=== PATIENT | female | born 1940 | race American Indian/Alaskan Native ===

== ENCOUNTER 2017-10-16 17:18 | Inpatient (IN) | payer MEDICARE ==
[2017-10-16 17:22] VITALS: BMI 17.6
[2017-10-16 18:25] LABS: BASO # 0.01 K/mm3 (0.0-2.0); BASO % 0.1 % (0.0-3.0); EOS # 0.1 (0.0-0.7); EOS % 1.1 % (1.5-5.0); GRAN # 6.69 (1.4-6.5); GRAN % 68.7 % (50.0-68.0); HEMATOCRIT 41.4 % (36.0-48.0); LYMPH # 2.1 (1.2-3.4); LYMPH % 21.8 % (22.0-35.0); MEAN CELL VOLUME 90.6 fl (80.0-105.0); MEAN CORPUSCULAR HEMOGLOBIN 30.6 pg (25.0-35.0); MEAN CORPUSCULAR HGB CONC 33.8 g/dl (31.0-37.0); MEAN PLATELET VOLUME 10.1 fl (7.0-11.0); MONO # 0.8 (0.1-0.6); MONO % 8.3 % (1.0-6.0); RED CELL DISTRIBUTION WIDTH 12.8 % (11.5-14.5); WHITE BLOOD COUNT 9.8 10^3/ul (4.5-11.0)
[2017-10-16] MEDS ORDERED: Morphine 4 mg/ml ISec IVP STA ×2 (18:26→19:29)
[2017-10-16 18:29] LABS: ALB/GLOB RATIO 1.5 (1.1-1.8); BILIRUBIN,TOTAL 0.6 mg/dL (0.2-1.3); CALCIUM 10.1 mg/dL (8.4-10.5); INR 1.09 (0.93-1.08); PARTIAL THROMBOPLASTIN TIME 27.3 Seconds (25.1-36.5); POTASSIUM 3.2 mmol/L (3.6-5.0); TOTAL PROTEIN 7.8 g/dL (5.8-8.3)
[2017-10-16] MEDS ORDERED: Morphine 2 mg/ml ISec ONE (18:41)
[2017-10-16] MEDS ORDERED: Morphine 2 mg/ml ISec IVP STA ×2 (18:43→19:32)
[2017-10-16] MEDS ORDERED: Potassium Chloride 20 mEq/15 ml LIQ UD PO STA (18:43)
--- NOTE | 2017-10-16 19:50 | ED PDOC ---
Arrival/HPI - General Chief Complaint: Trauma Time Seen by Provider: 10/16/17 17:46 Historian: Patient - History of Present Illness Narrative History of Present Illness (Text): 10/16/17 19:40 A 77 year old female presents to the emergency department complaining of s/p fall injuries. Patient reports she was crossing the street and fell forward, hitting her face. Denies LOC, but experiences headache, nausea, and vomiting. Patient developed swelling to right-side forehead and left cheek, and notes pain to left hand and left hip. Otherwise, denies any neck pain, back pain, chest pain, any other extremity injuries, dizziness prior to fall, or any other complaints. Patient is known to have poor balance which causes her to fall often. Past Medical History - Provider Review Nursing Documentation Reviewed: Yes - Infectious Disease Hx of Infectious Diseases: None - Cardiac Hx Hypertension: Yes Other/Comment: Aneurysm -- s/o surgery 1 month ago - Musculoskeletal/Rheumatological Hx Herniated Disk: Yes Other/Comment: Scoliosis - Psychiatric Hx Substance Use: No - Surgical History Other/Comment: aneurysm - Anesthesia Hx Anesthesia: Yes Hx Anesthesia Reactions: No Hx Malignant Hyperthermia: No Family/Social History - Physician Review Nursing Documentation Reviewed: Yes Family/Social History: No Known Family HX Smoking Status: Unknown If Ever Smoked Hx Alcohol Use: No Hx Substance Use: No Allergies/Home Meds Allergies/Adverse Reactions: Allergies erythromycin base Allergy (Verified 10/16/17 17:25) SWELLING iodine Allergy (Verified 10/16/17 17:25) SWELLING latex Allergy (Verified 10/16/17 17:25) RASH Home Medications: Home Meds Medication Instructions Recorded Confirmed Aspirin [Aspirin Chewable] 1 tab PO DAILY 10/16/17 10/16/17 Bimatoprost [Lumigan] 1 drop BOTHEYES HS 10/16/17 10/16/17 Chlorthalidone [Hygroton] 12.5 mg PO QOTHERDAY 10/16/17 10/16/17 Clopidogrel [Plavix] 1 tab PO DAILY 10/16/17 10/16/17 DULoxetine [Cymbalta] 1 cap PO HS 10/16/17 10/16/17 Nebivolol [Bystolic] 10 mg PO DAILY 10/16/17 10/16/17 Rivastigmine 4.6 mg/24 hr [Exelon 1 patch TD DAILY 10/16/17 10/16/17 4.6 mg/24 hr Patch] amLODIPine [Norvasc] 1 tab PO DAILY 10/16/17 10/16/17 cloNIDine [Catapres] 1 tab PO DAILY PRN 10/16/17 10/16/17 traMADol [Ultram] 100 mg PO TID 10/16/17 10/16/17 Review of Systems - Physician Review All systems were reviewed & negative as marked: Yes - Review of Systems Cardiovascular: absent: Chest Pain Gastrointestinal: Nausea, Vomiting Musculoskeletal: Other (left hip pain, left hand pain, right-side forehead swelling, left cheek swelling). absent: Back Pain, Neck Pain Neurological: Headache. absent: Other (no loc) Physical Exam Vital Signs Reviewed: Yes Vital Signs Temp Pulse Resp BP Pulse Ox 10/16/17 23:14 19 99 10/16/17 21:46 97.9 F 62 18 151/84 H 100 10/16/17 19:22 75 20 162/85 H 100 10/16/17 17:38 98.2 F 72 18 159/119 H 98 Temperature: Afebrile Blood Pressure: Hypertensive Pulse: Regular Respiratory Rate: Normal Appearance: Positive for: Well-Appearing Pain Distress: Moderate Mental Status: Positive for: Alert and Oriented X 3 - Systems Exam Head: Present: Swelling (right side forehead hematoma; left cheek hematoma) Pupils: Present: PERRL Extroacular Muscles: Present: EOMI Conjunctiva: Present: Normal Mouth: Present: Moist Mucous Membranes Neck: Present: Normal Range of Motion Respiratory/Chest: Present: Clear to Auscultation, Good Air Exchange. No: Respiratory Distress, Accessory Muscle Use Cardiovascular: Present: Regular Rate and Rhythm, Normal S1, S2. No: Murmurs Abdomen: Present: Normal Bowel Sounds. No: Tenderness, Distention, Peritoneal Signs Back: Present: Normal Inspection Upper Extremity: Present: NORMAL PULSES, Swelling (left hand dorsal area swelling). No: Normal ROM (limited ROM) Lower Extremity: No: Tenderness (no tenderness to left hip), Other (not shortened or externally rotated) Neurological: Present: GCS=15, CN II-XII Intact, Speech Normal Skin: Present: Warm, Dry, Normal Color. No: Rashes Psychiatric: Present: Alert, Oriented x 3, Normal Insight, Normal Concentration Medical Decision Making ED Course and Treatment: 10/17/17 01:14 Plan: -- Labs -- IV -- Urinalysis -- EKG -- CXR -- XR L hand / L hip -- Morphine / Zofran -- Reassess and disposition -- CT head / maxillofacial / C spine On evaluation, the patient continues to complain of nausea, is actively vomiting and still complains of pain. Patient medicated with morphine 4 mg and Zofran 4 mg IV. XR L hip : ? fracture of the ASIS, no fracture of the hip, no dislocation, as read by PA. XR L hand : no fracture, no dislocation, as read by PA CXR : NAD, as read by PA EKG: SB at 56 bpm, (+) LAD, (-) acute ST changes, as read by PA. CT L hip ordered. On second reevaluation, just laying in bed comfortably, patient remains awake, alert, oriented 3. Patient still feels nauseous at this time, given reglan 10 mg IV. Patient seen and evaluated by ER MD, agrees with current plan of care. Lab results reviewed : (+) mild UTI. Patient medicated with bactrim DS PO. Urine cx sent. CT head and maxillofacial shows no acute fracture or bleed. On re-evaluation, patient continues to c/o pain in the L hip with difficulty ambulating. Considering that the patient has intractible vomiting with difficulty ambulating decision was made to keep the patient for inpt obs. Case d /w Dr. Law, agrees with plan for inpt obs. Further plan of care d/w the patient and with family, who both agree with plan. As per patient's nephew, the patient has a h/o opiate abuse, specifically oxycontin and was recently in rehab in May of this year, she is currently on tramadol and lidocaine patches at home for pain. - Lab Interpretations Lab Results: 10/16/17 18:00 10/16/17 18:00 Lab Results 10/16/17 20:50: Urine Color Yellow, Urine Appearance Clear, Urine pH 8.0, Ur Specific [place] 1.010, Urine Protein Negative, Urine Glucose (UA) Negative, Urine Ketones Trace H, Urine Blood Trace-intact H, Urine Nitrate Negative, Urine Bilirubin Negative, Urine Urobilinogen 0.2, Ur Leukocyte Esterase Small H , Urine RBC 1 - 3, Urine WBC 2 - 5, Ur Epithelial Cells 1 - 3, Urine Bacteria Few 10/16/17 18:59: Blood Type Confirm O POSITIVE 10/16/17 18:00: Magnesium 2.1, Total Creatine Kinase 80 10/16/17 18:00: Troponin I < 0.01 10/16/17 18:00: Blood Type O POSITIVE, Antibody Screen Negative, BBK History Checked No verified bt 10/16/17 18:00: Sodium 134, Potassium 3.2 L, Chloride 91 L, Carbon Dioxide 35 H , Anion Gap 12, BUN 17, Creatinine 1.2, Est GFR ( Amer) 53, Est GFR (Non- Af Amer) 44, Random Glucose 118 H, Calcium 10.1, Total Bilirubin 0.6, AST 40 H, ALT 49, Alkaline Phosphatase 78, Total Protein 7.8, Albumin 4.7, Globulin 3.1, Albumin/Globulin Ratio 1.5 10/16/17 18:00: PT 11.9, INR 1.09 H, APTT 27.3 10/16/17 18:00: WBC 9.8, RBC 4.57, Hgb 14.0, Hct 41.4, MCV 90.6, MCH 30.6, MCHC 33.8, RDW 12.8, Plt Count 227, MPV 10.1, Gran % 68.7 H, Lymph % (Auto) 21.8 L, [place] % (Auto) 8.3 H, Eos % (Auto) 1.1 L, Baso % (Auto) 0.1, Gran # 6.69 H, Lymph # 2.1, [place] # 0.8 H, Eos # 0.1, Baso # 0.01 - RAD Interpretation Narrative RAD Interpretations (Text): 10/17/17 01:33 CT C spine : FINDINGS: Vertebrae: No acute fracture. Alignment: Preservation of the curvature of the cervical spine. Discs/spinal canal/neural foramina: No acute findings. Degenerative disease is identified with osteophyte formation, disc space narrowing, endplate changes and significant facet arthropathy. Thickening of the transverse ligament is suspected with accompanying synovial hypertrophy. Soft tissues: Symmetric Lung apices: The visualized lung apices are clear. IMPRESSION: Degenerative disease, without acute fracture. Dictated and Authenticated by: Sandee Morocho MD 10/16/2017 10:02 PM Eastern Time ([place] & [place]) CT head : FINDINGS: Brain: Moderate cerebral volume loss and accompanying decrease in attenuation of the periventricular white matter secondary to chronic microangiopathic change. The brain otherwise with normal yeung-white matter differentiation, without acute intracranial hemorrhage , edema or mass effect. Midline shift: No midline shift is present. Ventricles: Unremarkable. No ventriculomegaly. Bones/joints: No calvarial fractures are visualized. Soft tissues: There is severe soft tissue edema consistent with posttraumatic contusion and hematoma associated with the right frontal scalp. Vasculature: A small aneurysm with partial calcification of the base of the left MCA, 7 mm image 31 series #2. Stent appears in place in the left cavernous ICA. Sinuses: Unremarkable as visualized. No acute sinusitis. Mastoid air cells: Unremarkable as visualized. No mastoid effusion. Orbits: The orbits are normal. There is no evidence of retrobulbar hemorrhage. IMPRESSION: There is significant soft tissue injury noted to the patient's head. No acute intracranial findings are seen. 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 Incidentally noted is likely stent in the left ICA cavernous region, please correlate clinically. Dictated and Authenticated by: Aubrey St MD 10/16/2017 8:12 PM Eastern Time ([place] & [place]) CT Maxillofacial : FINDINGS: Bones/joints: No zygomatic fractures. No additional facial bone fractures. Soft tissues: There is severe soft tissue edema consistent with posttraumatic contusion and hematoma associated with the right frontal scalp. Moderate soft tissue swelling and contusion of the left periorbital region with a prominent hematoma the left zygoma 2.1 cm. Extensive soft tissue contusion of the left face adjacent to left maxillary region and left mandibular area. Orbits: The orbits are normal. There is no evidence of retrobulbar hemorrhage. Sinuses: Unremarkable. No air-fluid levels IMPRESSION: Extensive multifocal soft tissue injury to the face. No definite facial bone fractures. Dictated and Authenticated by: Aubrey St MD 10/16/2017 8:03 PM Eastern Time ([place] & [place]) Radiology Orders: 10/16/17 17:47 HEAD W/O CONTRAST [CT] Stat 10/16/17 17:55 MAXILLOFACIAL W/O CONTRAST [CT] Stat HAND LEFT 3 VIEWS ROUTINE [RAD] Stat HIP MIN 2V W/ PELVIS LT [RAD] Stat 10/16/17 20:16 CERVICAL SPINE W/O CONTRAST [CT] Stat 10/16/17 20:21 CHEST ONE VIEW [RAD] Stat - Medication Orders Current Medication Orders: Amlodipine Besylate (Norvasc) 5 mg PO DAILY [facility] Aspirin (Aspirin Chewable) 81 mg PO DAILY [facility] Clonidine HCl (Catapres) 0.1 mg PO BID ERNIE Clopidogrel Bisulfate (Plavix) 75 mg PO DAILY ERNIE Duloxetine HCl (Cymbalta) 30 mg PO HS [facility] Heparin Sodium (Porcine) (Heparin) 5,000 units SC Q12 ERNIE PRN Reason: Protocol Sodium Chloride (Sodium Chloride 0.9%) 1,000 mls @ 100 mls/hr IV .Q10H [facility] Ceftriaxone Sodium (Rocephin 2 Gm Ivpb) 2 gm in 100 mls @ 100 mls/hr IVPB DAILY ERNIE PRN Reason: Protocol Ketorolac Tromethamine (Toradol) 15 mg IVP Q6H PRN PRN Reason: Pain, moderate (4-7) Metoclopramide HCl (Reglan) 5 mg IVP ACHS [facility] Non-Formulary Medication (Bimatoprost [Lumigan]) 1 drop BOTHEYES HS [facility] Ondansetron HCl (Zofran Inj) 4 mg IVP Q4H PRN PRN Reason: Nausea/Vomiting Pantoprazole Sodium (Protonix Ec Tab) 40 mg PO 0600 [facility] Rivastigmine (Exelon 4.6 Mg/24 Hr Patch) 1 patch TD DAILY [facility] Discontinued Medications Acetaminophen (Tylenol 325mg Tab) 650 mg PO STAT STA Stop: 10/16/17 17:56 Last Admin: 10/16/17 19:09 Dose: Not Given Non-Admin Reason: Patient Refused Metoclopramide HCl (Reglan) 10 mg IVP STAT STA Stop: 10/16/17 19:30 Last Admin: 10/16/17 19:57 Dose: 10 mg IVP Administration Document 10/16/17 19:57 CAST (Rec: 10/16/17 19:[email or web address] Charges for Administration # of IVP Administrations 1 Morphine Sulfate (Morphine) 2 mg IVP STAT STA Stop: 10/16/17 18:44 Last Admin: 10/16/17 19:10 Dose: 2 mg MAR Pain Assessment Document 10/16/17 19:10 [email or web address] (Rec: 10/16/17 19:[address] Pain Reassessment Is this a pain reassessment? No Sleep Is patient sleeping during reassessment? No Presence of Pain Presence of Pain Yes Pain Scale Used Pain Scale Used Numeric Location Pain Location Body [employer] Description Description Constant Intensity of Pain at present 8 Pain Behavior Facial Grimacing Aggravating Factors Changing Position Alleviating Factors/Management Medication Techniques Alleviating Factors Medication IVP Administration Document 10/16/17 19:10 [email or web address] (Rec: 10/16/17 19:[address] Charges for Administration # of IVP Administrations 1 Morphine Sulfate (Morphine) 4 mg IVP STAT STA Stop: 10/16/17 19:33 Last Admin: 10/16/17 19:58 Dose: 4 mg MAR Pain Assessment Document 10/16/17 19:58 CAST (Rec: 10/16/17 19:[address] Pain Reassessment Is this a pain reassessment? No Sleep Is patient sleeping during reassessment? No Presence of Pain Presence of Pain Yes Pain Scale Used Pain Scale Used Numeric Location Pain Location Body Site Face Description Description Constant Intensity of Pain at present 8 Pain Behavior Facial Grimacing Aggravating Factors Changing Position Alleviating Factors/Management Medication Techniques Alleviating Factors Medication IVP Administration Document 10/16/17 19:58 [email or web address] (Rec: 10/16/17 19:[address] Charges for Administration # of IVP Administrations 1 Ondansetron HCl (Zofran Inj) 4 mg IVP STAT STA Stop: 10/16/17 17:47 Last Admin: 10/16/17 18:00 Dose: 4 mg IVP Administration Document 10/16/17 18:00 CONY (Rec: 10/16/17 18:05 CONY [id number]) Charges for Administration # of IVP Administrations 1 Ondansetron HCl (Zofran Inj) 4 mg IVP STAT STA Stop: 10/16/17 18:27 Last Admin: 10/16/17 19:10 Dose: 4 mg IVP Administration Document 10/16/17 19:10 [email or web address] (Rec: 10/16/17 19:[address] Charges for Administration # of IVP Administrations 1 Potassium Chloride (Potassium Chloride Oral Soln) 40 meq PO STAT STA Stop: 10/16/17 18:44 Last Admin: 10/16/17 21:54 Dose: 40 meq Tramadol HCl (Ultram) 50 mg PO STAT STA Stop: 10/16/17 21:26 Last Admin: 10/16/17 21:54 Dose: 50 mg MAR Pain Assessment Document 10/16/17 21:54 [email or web address] (Rec: 10/16/17 21:54 [email or web address] [id number]) Pain Reassessment Is this a pain reassessment? No Sleep Is patient sleeping during reassessment? 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 - Scribe Statement The provider has reviewed the documentation as recorded by the Zhanna Wright Provider Scribe Attestation: All medical record entries made by the Zhanna were at my direction and personally dictated by me. I have reviewed the chart and agree that the record accurately reflects my personal performance of the history, physical exam, medical decision making, and the department course for this patient. I have also personally directed, reviewed, and agree with the discharge instructions and disposition. Disposition/Present on Arrival - Present on Arrival Any Indicators Present on Arrival: No History of DVT/PE: No History of Uncontrolled Diabetes: No Urinary Catheter: No History of Decub. Ulcer: No History Surgical Site Infection Following: None - Disposition Have Diagnosis and Disposition been Completed?: Yes Diagnosis: Intractable vomiting, Left hip pain, Fall, UTI (urinary tract infection) Disposition: HOSPITALIZED Disposition Time: 22:08 Patient Plan: Observation Patient Problems: Current Active Problems Problem Status Onset Fall Acute Intractable vomiting Acute Left hip pain Acute UTI (urinary tract infection) Acute Condition: STABLE
[2017-10-16 21:00] LABS: URINE APPEARANCE CLEAR (CLEAR); URINE BILIRUBIN NEGATIVE (NEGATIVE); URINE BLOOD TRACE-INTACT (NEGATIVE); URINE COLOR YELLOW (YELLOW); URINE GLUCOSE (UA) NEGATIVE (NEGATIVE); URINE KETONE TRACE mg/dL (NEGATIVE); URINE LEUKOCYTE ESTERASE SMALL Leu/uL (NEGATIVE); URINE PROTEIN NEGATIVE mg/dL (<30 mg/dL); URINE UROBILINOGEN 0.2 E.U./dL (<1 E.U./dL)
[2017-10-16 21:04] LABS: URINE BACTERIA FEW (NEG)
[2017-10-16] MEDS ORDERED: Tmp-Smz 800 mg-160 mg DS Tab PO STA (21:41)
--- NOTE | 2017-10-16 22:03 | CT ---
EXAM: CT Cervical Spine Without Intravenous Contrast CLINICAL HISTORY: 77 years old, female; Injury or trauma; Fall; Initial encounter; Abrasion TECHNIQUE: Axial computed tomography images of the cervical spine without intravenous contrast. All CT scans at this facility use one or more dose reduction techniques, viz.: automated exposure control; ma/kV adjustment per patient size (including targeted exams where dose is matched to indication; i.e. head); or iterative reconstruction technique. Coronal and sagittal reformatted images were created and reviewed. COMPARISON: No relevant prior studies available. FINDINGS: Vertebrae: No acute fracture. Alignment: Preservation of the curvature of the cervical spine. Discs/spinal canal/neural foramina: No acute findings. Degenerative disease is identified with osteophyte formation, disc space narrowing, endplate changes and significant facet arthropathy. Thickening of the transverse ligament is suspected with accompanying synovial hypertrophy. Soft tissues: Symmetric Lung apices: The visualized lung apices are clear. IMPRESSION: Degenerative disease, without acute fracture.
[2017-10-16 23:20] LABS: MAGNESIUM 2.1 mg/dL (1.7-2.2)
--- NOTE | 2017-10-16 23:58 | CP.PCM.HP ---
History of Present Illness - History of Present Illness History of Present Illness: 77 y/o F with PMH of HTN, b/l cataracts, CVA s/p Left ICA stent presents for mechanical fall. Pt states she has very poor depth perception due to her cataracts. As she was getting out of her car, she tripped on the sidewalk and fell straight onto her face. Pt was immediately brought to the hospital. Pt denies any LOC or dizziness. Pt also denies any tongue biting or loss of bowel/ bladder function. Pt states she is unable to open her right eye due to the swelling. She does note generalized body pain, as she fell on her face, wrist, and knees b/l. Since fall, patient has developed nausea and vomiting. This has not happened to patient in the past. Denies CP, SOB, diarrhea, constipation, syncope, fever, chills, numbness, tingling. PMH: HTN, b/l cataracts, CVA s/p Left ICA stent Surgical Hx: Left ICA stent Social hx: Denies alcohol, tobacco, or illicit drug use Medications: As per MAR Allergies: Erythromycin, Iodine, Latex Present on Admission - Present on Admission Any Indicators Present on Admission: No Review of Systems - Review of Systems Review of Systems: As per HPI, otherwise negative. Past Patient History - Infectious Disease Hx of Infectious Diseases: None - Past Social History Smoking Status: Unknown If Ever Smoked - CARDIAC Hx Hypertension: Yes Other/Comment: Aneurysm -- s/o surgery 1 month ago - MUSCULOSKELETAL/RHEUMATOLOGICAL Hx Herniated Disk: Yes Other/Comment: Scoliosis - PSYCHIATRIC Hx Substance Use: No - SURGICAL HISTORY Other/Comment: aneurysm - ANESTHESIA Hx Anesthesia: Yes Hx Anesthesia Reactions: No Hx Malignant Hyperthermia: No Meds Allergies/Adverse Reactions: Allergies Allergy/AdvReac Type Severity Reaction Status Date / Time erythromycin base Allergy SWELLING Verified 10/16/17 17:25 iodine Allergy SWELLING Verified 10/16/17 17:25 latex Allergy RASH Verified 10/16/17 17:25 Physical Exam - Constitutional Appears: Non-toxic, No Acute Distress - Head Exam Head Exam: NORMOCEPHALIC Additional comments: Large hematoma above right eye. Hematoma noted along left lateral portion of face. Bruising diffusely. - Eye Exam Eye Exam: EOMI (Left intact, right unable to be assessed. ) - ENT Exam ENT Exam: Mucous Membranes Moist - Neck Exam Neck exam: Positive for: Normal Inspection. Negative for: Tenderness - Respiratory Exam Respiratory Exam: Clear to Auscultation Bilateral, NORMAL BREATHING PATTERN. absent: Rales, Rhonchi, Wheezes - Cardiovascular Exam Cardiovascular Exam: RRR, +S1, +S2 - GI/Abdominal Exam GI & Abdominal Exam: Normal Bowel Sounds, Soft. absent: Tenderness - Extremities Exam Extremities exam: Negative for: calf tenderness, pedal edema Additional comments: Abrasions along knees b/l. No hip bruising noted. - Neurological Exam Neurological exam: Alert, CN II-XII Intact, Oriented x3 Additional comments: No focal neurological deficits - Psychiatric Exam Psychiatric exam: Normal Affect, Normal Mood - Skin Skin Exam: Intact, Normal Color, Warm Results - Vital Signs Recent Vital Signs: Last Vital Signs Temp 97.9 F 10/16/17 21:46 Pulse 62 10/16/17 21:46 Resp 19 10/16/17 23:14 BP 151/84 H 10/16/17 21:46 Pulse Ox 99 10/16/17 23:14 - Labs Result Diagrams: 10/16/17 18:00 10/16/17 18:00 Labs: Laboratory Results - last 24 hr 10/16/17 10/16/17 10/16/17 18:00 18:00 18:00 WBC 9.8 RBC 4.57 Hgb 14.0 Hct 41.4 MCV 90.6 MCH 30.6 MCHC 33.8 RDW 12.8 Plt Count 227 MPV 10.1 Gran % 68.7 H Lymph % (Auto) 21.8 L [place] % (Auto) 8.3 H Eos % (Auto) 1.1 L Baso % (Auto) 0.1 Gran # 6.69 H Lymph # 2.1 [place] # 0.8 H Eos # 0.1 Baso # 0.01 PT 11.9 INR 1.09 H APTT 27.3 Sodium 134 Potassium 3.2 L Chloride 91 L Carbon Dioxide 35 H Anion Gap 12 BUN 17 Creatinine 1.2 Est GFR ( Amer) 53 Est GFR (Non-Af Amer) 44 Random Glucose 118 H Calcium 10.1 Magnesium Total Bilirubin 0.6 AST 40 H ALT 49 Alkaline Phosphatase 78 Total Creatine Kinase Troponin I Total Protein 7.8 Albumin 4.7 Globulin 3.1 Albumin/Globulin Ratio 1.5 Urine Color Urine Appearance Urine pH Ur Specific [place] Urine Protein Urine Glucose (UA) Urine Ketones Urine Blood Urine Nitrate Urine Bilirubin Urine Urobilinogen Ur Leukocyte Esterase Urine RBC Urine WBC Ur Epithelial Cells Urine Bacteria Blood Type Blood Type Confirm Antibody Screen BBK History Checked 10/16/17 10/16/17 10/16/17 18:00 18:00 18:00 WBC RBC Hgb Hct MCV MCH MCHC RDW Plt Count MPV Gran % Lymph % (Auto) [place] % (Auto) Eos % (Auto) Baso % (Auto) Gran # Lymph # [place] # Eos # Baso # PT INR APTT Sodium Potassium Chloride Carbon Dioxide Anion Gap BUN Creatinine Est GFR ( Amer) Est GFR (Non-Af Amer) Random Glucose Calcium Magnesium 2.1 Total Bilirubin AST ALT Alkaline Phosphatase Total Creatine Kinase 80 Troponin I < 0.01 Total Protein Albumin Globulin Albumin/Globulin Ratio Urine Color Urine Appearance Urine pH Ur Specific [place] Urine Protein Urine Glucose (UA) Urine Ketones Urine Blood Urine Nitrate Urine Bilirubin Urine Urobilinogen Ur Leukocyte Esterase Urine RBC Urine WBC Ur Epithelial Cells Urine Bacteria Blood Type O POSITIVE Blood Type Confirm Antibody Screen Negative BBK History Checked No verified bt 10/16/17 10/16/17 18:59 20:50 WBC RBC Hgb Hct MCV MCH MCHC RDW Plt Count MPV Gran % Lymph % (Auto) [place] % (Auto) Eos % (Auto) Baso % (Auto) Gran # Lymph # [place] # Eos # Baso # PT INR APTT Sodium Potassium Chloride Carbon Dioxide Anion Gap BUN Creatinine Est GFR ( Amer) Est GFR (Non-Af Amer) Random Glucose Calcium Magnesium Total Bilirubin AST ALT Alkaline Phosphatase Total Creatine Kinase Troponin I Total Protein Albumin Globulin Albumin/Globulin Ratio Urine Color Yellow Urine Appearance Clear Urine pH 8.0 Ur Specific [place] 1.010 Urine Protein Negative Urine Glucose (UA) Negative Urine Ketones Trace H Urine Blood Trace-intact H Urine Nitrate Negative Urine Bilirubin Negative Urine Urobilinogen 0.2 Ur Leukocyte Esterase Small H Urine RBC 1 - 3 Urine WBC 2 - 5 Ur Epithelial Cells 1 - 3 Urine Bacteria Few Blood Type Blood Type Confirm O POSITIVE Antibody Screen BBK History Checked Assessment & Plan - Assessment and Plan (Free Text) Plan: 77 y/o F with PMH of HTN, b/l cataracts, CVA s/p Left ICA stent presents for mechanical fall. Pt underwent Head, Maxillofacial, and Cervical CT scans which were all negative for acute fracture. Wrist and hip x-ray official reads pending at this time. Pt with extensive soft tissue swelling along right and left eye. Pt will be admitted for observation. 1. Mechanical fall, facial trauma CT scans negative for acute fracture Tordol for pain NS @ 100 Cold compresses prn CPK ordered Brain MRA/MRI ordered 2. UTI ROcephin started Culture pending 3. Intractable nausea and vomiting Zofran Reglan NS @ 100 4. HTN Hold thiazide, Bystolic Continue amlodipine and clonidine 5. Hx of left ICA stent Continue ASA and plavix 6. B/l cataracts Continue home drops 7. PPX Protonix Heparin Husam, PGY-2
[2017-10-17] MEDS ORDERED: Potassium Chloride 20 mEq ER Tab PO STA (04:43)
[2017-10-17] MEDS: Pantoprazole 40 mg EC Tab PO SCH (05:45)
[2017-10-17 07:02] LABS: GRAN # 9.36 (1.4-6.5); GRAN % 82.7 % (50.0-68.0); HEMATOCRIT 40.1 % (36.0-48.0); LYMPH # 0.9 (1.2-3.4); MEAN CELL VOLUME 90.1 fl (80.0-105.0); MEAN CORPUSCULAR HEMOGLOBIN 29.9 pg (25.0-35.0); MEAN CORPUSCULAR HGB CONC 33.2 g/dl (31.0-37.0); MEAN PLATELET VOLUME 10.2 fl (7.0-11.0); MONO # 1.1 (0.1-0.6); MONO % 9.3 % (1.0-6.0); RED CELL DISTRIBUTION WIDTH 12.6 % (11.5-14.5); WHITE BLOOD COUNT 11.3 10^3/ul (4.5-11.0)
[2017-10-17 08:02] LABS: ALB/GLOB RATIO 1.5 (1.1-1.8); ALKALINE PHOSPHATASE 69 U/L (38-126); ALT/SGPT 43 U/L (7-56); AST/SGOT 35 U/L (14-36); BILIRUBIN,TOTAL 0.9 mg/dL (0.2-1.3); BLOOD UREA NITROGEN 15 mg/dL (7-21); CARBON DIOXIDE 36 mmol/L (21-33); CHLORIDE 92 mmol/L (98-107); GFR AFRICAN-AMERICAN > 60; GLUCOSE,RANDOM 137 mg/dL (70-110); POTASSIUM 4.6 mmol/L (3.6-5.0); SODIUM 135 mmol/L (132-148); TOTAL PROTEIN 7.4 g/dL (5.8-8.3)
--- NOTE | 2017-10-17 09:38 | RAD ---
Indication: Trauma Left hip with pelvis radiographs Comparison: None available Findings: Osseous demineralization limits evaluation for acute fracture lines. No acute displaced fracture or dislocation identified. Sacroiliac joints appear intact. Mild constipation. Soft tissues appear unremarkable. No evidence of radiopaque foreign body. Impression: Osseous demineralization. No acute displaced fracture or dislocation evident. If high clinical index of suspicion, suggest cross-sectional imaging for further evaluation. Otherwise, if symptoms persist or if there is continued clinical concern, x-ray follow-up in 7-10 days should be considered.
--- NOTE | 2017-10-17 09:41 | RAD ---
PROCEDURE: Left Hand Radiographs. HISTORY: trauma COMPARISON: None available. FINDINGS: BONES: Osseous demineralization limits evaluation for acute fracture lines. No acute displaced fracture. JOINTS: No dislocation. Extensive degenerative changes including joint space narrowing most prominent at the carpal metacarpal joint spaces. SOFT TISSUES: Soft tissue swelling. No evidence of radiopaque foreign body. OTHER FINDINGS: None. IMPRESSION: Osseous demineralization. Degenerative changes. Soft tissue swelling. No acute displaced fracture or dislocation identified. If high clinical index of suspicion for occult fracture persists suggest further evaluation with cross-sectional imaging. Otherwise, if symptoms persist, or if there is continued clinical concern, x-ray follow-up in 7-10 days should be considered.
--- NOTE | 2017-10-17 09:58 | RAD ---
HISTORY: fall COMPARISON: Chest x-ray performed 10/16/17 TECHNIQUE: Chest, one view. FINDINGS: LUNGS: Right upper lobe pleural thickening. Suspect left-sided pleural calcification, Numerous calcified pleural plaques are present bilaterally suggesting asbestos related pleural disease. Please note that chest x-ray has limited sensitivity for the detection of pulmonary masses. PLEURA: No significant pleural effusion identified. No definite pneumothorax . CARDIOVASCULAR: Heart size appears within normal limits. Ectatic aorta. OSSEOUS STRUCTURES: Osseous demineralization. No acute osseous abnormality detected. VISUALIZED UPPER ABDOMEN: Unremarkable. OTHER FINDINGS: None. IMPRESSION: Right upper lobe pleural thickening. Suspect left-sided pleural calcification, Numerous calcified pleural plaques are present bilaterally suggesting asbestos related pleural disease.
[2017-10-17] MEDS: cefTRIAXone 2 GM IN NS 2 GM/100 ML BAG IVPB SCH (11:12)
[2017-10-17] MEDS: Sodium Chloride 0.9% 1,000 ML IV SCH ×2 (11:13→17:55)
--- NOTE | 2017-10-17 12:46 | CON ---
DATE: 10/17/2017 CHIEF COMPLAINT: Status post fall. HISTORY OF PRESENT ILLNESS: This is a 77-year-old woman with past medical history of hypertension, bilateral cataracts, CVA, status post left ICA stent presented with mechanical fall. She states she has very poor depth perception due to bilateral cataracts. She tripped on the sidewalk and fell on her face where she developed facial contusions but no loss of consciousness or dizziness. No history of seizures. No history of tongue bite or loss of bowel or bladder function. Her right eye is swollen. CTA has showed no intracranial abnormalities. Her MRI of the brain is currently pending for any delayed events. She is moving all extremities and following simple commands. She denies any prior syncopal episodes or any diaphoresis or palpitations prior to the event. PAST MEDICAL HISTORY: History of hypertension, bilateral cataracts, CVA, status post left ICA stent. SURGICAL HISTORY: Left ICA stent. SOCIAL HISTORY: No illicit drug use, smoking, or EtOH abuse. ALLERGIES: ALLERGIC TO ERYTHROMYCIN, IODINE, AND LATEX. MEDICATIONS: Reviewed via nurse's reconciliation sheet. LABORATORY DATA: Sodium 135, potassium 4.6, chloride 92, carbon dioxide 36, BUN 15, creatinine 1, random glucose 137. PHYSICAL EXAMINATION VITAL SIGNS: Temperature 98.3, pulse rate 74, blood pressure 137/81, respirations 20, oxygen saturation 98% via room air. GENERAL: The patient is sitting up in bed, in no acute distress. HEENT: Head is atraumatic and normocephalic. PERRLA. Extraocular muscles intact. NECK: Supple. No JVD. No adenopathy noted. Has multiple contusions and abrasions on her face. Hematoma along the left lateral portion of her face and bruising diffusely and a large hematoma above her right eye. Neck is supple. No JVD. No adenopathy noted. LUNGS: Clear to auscultation. No adventitious sounds. HEART: S1 and S2, normal rate and rhythm. No murmurs, rubs, or gallops. ABDOMEN: Soft, nontender, nondistended. Bowel sounds are present. EXTREMITIES: No clubbing, no cyanosis. Peripheral pulses 2+ bilaterally. NEUROLOGIC: The patient is alert, oriented to person, place, month, and year. Speech is fluent without any errors. Cranial nerves II through XII intact. Motor exam: Slight increased tone throughout. Has spastic mild right sided weakness from prior CVA. Sensory exam: Light touch, pinprick, proprioception, vibration intact. DTRs are 1+ throughout. Coordination: [id number] intact. Gait is deferred for now. ASSESSMENT AND PLAN: This is a 77-year-old woman with a past medical history of hypertension, bilateral cataracts, cerebrovascular accident, status post left ICA stent with spastic mild right-sided weakness associated with right upper extremity presented with mechanical fall after tripping on the sidewalk. CT of head and cervical spine scans were all negative for any acute fractures or any acute bleeding in the brain. She has excessive soft tissue swelling along the right and left eye. Currently, no change in sense of vision, taste, or smell. Fall is likely secondary to mechanical fall in light of deconditioned state. At this time, we will recommend: 1. MRI of the brain to see for any delayed bleeding. 2. Keep blood pressures between 130 to 140. 3. Continue with aspirin 81 and Plavix 75 mg for stroke prevention. 4. Avoid over sedating meds to prevent deterioration of mental status. 5. Monitor electrolytes and correct accordingly. 6. PT/OT evaluation and continue current present medical management and get orthostatic vital signs. Ray Coates MD
--- NOTE | 2017-10-17 14:43 | CT ---
Indication: L hip pain, r/o fracture Noncontrast CT of the left hip Comparison: Left hip radiographs performed 10/16/17 Technique: Noncontrast axial images of the left hip. Sagittal coronal reformatted images were generated and reviewed. This CT exam was performed using 1 or more of the falling dose reduction techniques: Automated exposure control, adjustment of the MAA and/or kV according to patient size, and/or use of iterative reconstruction technique. Total exam DLP: 163.68 Findings: Oblique mildly displaced comminuted fracture of the anterior superior most left iliac crest. The remainder of the visualized osseous structures appear intact without acute displaced fracture. Osseous demineralization. Degenerative changes. Soft tissues appear unremarkable. No evidence of radiopaque foreign body. Limited visualization of the intrapelvic contents demonstrates moderate constipation. Impression: Oblique mildly displaced comminuted fracture of the anterior superior most left iliac crest. Findings discussed with the patient's TUNG Beyer on 10/17/17 at 2:37 p.m.
--- NOTE | 2017-10-17 22:03 | CARD ---
APPROVED REPORT EKG Measurement Heart [id number] [id number] <Conclusion> Sinus bradycardia with sinus arrhythmia Left axis deviation Minimal voltage criteria for LVH, may be normal variant Abnormal ECG
[2017-10-17] MEDS: BIMATOPROST BOTHEYES SCH (22:23)
--- NOTE | 2017-10-17 23:35 | CP.PCM.PN ---
Subjective - Date & Time of Evaluation Date of Evaluation: 10/17/17 Time of Evaluation: 23:35 - Subjective Subjective: # 22 angiocath was inserted in right forearm. Objective - Vital Signs/Intake and Output Vital Signs (last 24 hours): Temp Pulse Resp BP Pulse Ox 98.1 F 74 20 137/81 97 10/17/17 15:51 10/17/17 17:56 10/17/17 15:51 10/17/17 17:56 10/17/17 15:51 Intake and Output: 10/17/17 10/18/17 18:59 06:59 Intake Total 660 Balance 660 - Medications Medications: Current Medications Amlodipine Besylate (Norvasc) 5 mg PO DAILY [facility] Last Admin: 10/17/17 11:11 Dose: 5 mg Aspirin (Aspirin Chewable) 81 mg PO DAILY [facility] Last Admin: 10/17/17 11:08 Dose: 81 mg Clonidine HCl (Catapres) 0.1 mg PO BID [facility] Last Admin: 10/17/17 17:56 Dose: 0.1 mg Clopidogrel Bisulfate (Plavix) 75 mg PO DAILY [facility] Last Admin: 10/17/17 11:12 Dose: 75 mg Duloxetine HCl (Cymbalta) 30 mg PO HS [facility] Last Admin: 10/17/17 22:24 Dose: 30 mg Heparin Sodium (Porcine) (Heparin) 5,000 units SC Q12 [facility] PRN Reason: Protocol Last Admin: 10/17/17 22:23 Dose: 5,000 units Sodium Chloride (Sodium Chloride 0.9%) 1,000 mls @ 100 mls/hr IV .Q10H [facility] Last Admin: 10/17/17 17:55 Dose: 100 mls/hr Ceftriaxone Sodium (Rocephin 2 Gm Ivpb) 2 gm in 100 mls @ 100 mls/hr IVPB DAILY [facility] PRN Reason: Protocol Last Admin: 10/17/17 11:12 Dose: 100 mls/hr Ketorolac Tromethamine (Toradol) 15 mg IVP Q6H PRN PRN Reason: Pain, moderate (4-7) Last Admin: 10/17/17 21:05 Dose: 15 mg Metoclopramide HCl (Reglan) 5 mg IVP ACHS [facility] Last Admin: 10/17/17 22:24 Dose: 5 mg Bimatoprost [Lumigan (] 1 Drop (Home Med)) 1 drop BOTHEYES HS [facility] Last Admin: 10/17/17 22:23 Dose: 1 drop Ondansetron HCl (Zofran Inj) 4 mg IVP Q4H PRN PRN Reason: Nausea/Vomiting Pantoprazole Sodium (Protonix Ec Tab) 40 mg PO 0600 [facility] Last Admin: 10/17/17 05:45 Dose: 40 mg Rivastigmine (Exelon 4.6 Mg/24 Hr Patch) 1 patch TD DAILY [facility] Last Admin: 10/17/17 11:20 Dose: 1 patch Tramadol HCl (Ultram) 100 mg PO TID [facility] Last Admin: 10/17/17 17:57 Dose: 100 mg - Labs Labs: 10/17/17 06:00 10/17/17 06:00 PT 11.9 SECONDS (9.4-12.5) 10/16/17 18:00 INR 1.09 (0.93-1.08) H 10/16/17 18:00 APTT 27.3 Seconds (25.1-36.5) 10/16/17 18:00
--- NOTE | 2017-10-18 00:22 | HP ---
HISTORY OF PRESENT ILLNESS: The patient is a 77-year-old female presented to the [facility] Room as an ambulatory walk-in. The patient came to the ER after a fall as per the family. The patient stated that she was walking and about to cross the street when she got out of balance and fell and hit her face and complaining of facial pain and left hip pain. The patient was seen by the physician registered dental assistant. The patient fell crossing the street and fell forward, hitting her face, denies loss of consciousness. The patient immediately noticed swelling of the right side of the forehead, left cheek. The patient also complained of left hand and left hip pain. REVIEW OF SYSTEMS: A 13-system review was done, pertinent positive and negative dictated above. CODE STATUS: Full code. LIVING WILL ADVANCE DIRECTIVE: None. ALLERGIES: ERYTHROMYCIN, IODINE, LATEX. Height is 5 feet 4 inches. BMI is 18. HOME MEDICATIONS: Lumigan eyedrops h.s., Exelon patch 4.6 mg, Ultram 100 mg three times a day, Cymbalta 30 mg h.s., hydrochlorothiazide or chlorthalidone 25 mg daily, clonidine 0.1 mg p.r.n., Norvasc 5 mg daily, Bystolic 10 mg or 5 mg daily, Plavix 75 mg daily, and Ecotrin 81 mg daily. SOCIAL HISTORY: Positive former smoker. Denies alcohol. Denies substance abuse. Denies drug use. MENSTRUAL HISTORY: Postmenopausal. FAMILY HISTORY: Not available. OCCUPATIONAL HISTORY: Not available. PAST MEDICAL AND SURGICAL HISTORY: History of glaucoma, history of dementia, history of pain syndrome. The patient's past medical history is significant for hypertension, history of cataracts, history of back pain and herniated disc, history of cerebrovascular accident with left carotid stenosis and left internal carotid artery stenting. The patient was seen in the emergency room by the ER physician and the physician's registered dental assistant. The patient was found to be having difficulty walking with increasing pain and persistent nausea. The patient was seen and examined. PHYSICAL EXAMINATION: VITAL SIGNS: T-max 98.3; heart rate 65, 72, 74; blood pressure was 159/119, repeat blood pressure 162/85 and 151/84; respirations 20; and O2 sat was 98%. HEENT: The patient's head examination shows positive swelling of the right supraorbital area, right periorbital area. Positive swelling of the right and left eyelid. Positive periorbital hematoma bilaterally. Positive right supraorbital hematoma. Positive facial contusions and discoloration noted. NECK: The patient has pain on movement of the neck. CARDIOVASCULAR: S1, S2, regular rhythm. ABDOMEN: Soft. Positive bowel sound. GENITALIA: Female. RECTAL: Deferred. EXTREMITIES: The patient is able to move upper and lower extremity without assistance. Gait examination could not be tested. The patient has pain on the left hip and left lower extremity area. NEUROLOGIC: The patient is neurologically awake, responsive, alert. Able to move upper extremity. Gait examination could not be tested. DIAGNOSTIC STUDIES: The patient was seen and evaluated in the emergency room by the ER physician and the physician registered dental assistant. The patient underwent CT head, x-ray of the hand, hip and pelvic x-ray, maxillofacial CT, EKG, cervical spine CT was done and CT of the left hip was ordered. The patient was treated in the emergency room by the ER physician and the physician registered dental assistant with Zofran 8 mg, tramadol 50, Reglan 10 mg. The patient was given morphine 4 mg x1 dose and 2 mg x2 doses. The patient was given potassium supplementation. The patient was given Tylenol and the patient was advised to be admitted. The patient's diagnostic data including lab data, imaging reports which is preliminary available reviewed. IMPRESSION AND PLAN: 1. Status post mechanical fall. 2. Facial contusion and trauma with bilateral periorbital and supraorbital hematoma and contusion. 3. Questionable urinary tract infection. 4. Intractable nausea and vomiting. 5. Gait dysfunction. 6. History of left carotid stenosis with status post left internal carotid artery stenting. 7. History of cataract. 8. Hypertension. 9. Granulocytosis. 10. Questionable facial cellulitis secondary to fall, contusion. 11. Hypokalemia. 12. Metabolic alkalosis. 13. Hyperglycemia. 14. Slight transaminitis. 15. Microscopic hematuria, pyuria, bacteria, questionable urinary tract infection. 16. Status post fall. 17. 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 18. Degenerative joint disease of the cervical spine without any acute fracture. 19. Right upper lobe pleural thickening and suspected left-sided pleural calcification with numerous calcified pleural plaques bilaterally suggestive of asbestos-related pleural disease. 20. Ectatic aorta. 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 22. Left anterior hemiblock. 23. Hypertensive cardiovascular disease. 24. History of cerebrovascular accident. 25. Questionable mild right upper extremity spastic weakness from prior cerebrovascular accident. 26. Extensive facial soft tissue swelling versus questionable cellulitis. 27. History of dementia, history of hypertension. 28. Oblique mildly displaced comminuted fracture of the left anterior superior iliac crest. 29. Degenerative joint disease. Plan at this time, the patient has been admitted. The patient has been put on bedrest. Serial labs ordered. Urine cultures ordered. Orthopedics consultation, Neurology consultation, and [id number] consultation ordered. The patient is on aspirin 81 mg p.o. daily, Lumigan eye drop. The patient is started on clonidine twice a day, Cymbalta 30 mg h.s., Exelon patch 4.6 mg daily. The patient is started on DVT prophylaxis with heparin 5000 subcu q.12. The patient's potassium was supplemented. The patient is resumed on Norvasc 5 mg daily, Plavix 75 mg daily. The patient's potassium was supplemented. The patient is on Protonix 40 daily, Reglan 5 mg IV a.c. and h.s., Rocephin 2 g IV daily. The patient is started on IV fluid 0.9 at 100 mL an hour. The patient is started on Toradol 15 mg IV q.6 p.r.n., Ultram 100 mg three times a day as resume, Zofran 4 mg IV q.4 p.r.n. as ordered. MRI and MRA of the brain ordered. We are still awaiting for the CT head and maxillofacial CT result. The patient is ordered heart healthy diet. The patient was placed on bedrest. SCDs and ANNA stockings ordered. At present, the patient is awaiting for further input and recommendation from all the subspecialty. The patient's further management will be dependent upon the patient's clinical condition, hemodynamic status and as per the patient response to therapeutic intervention, as per the patient's diagnostic test results and as per recommendation by all the physician involved in the care of the patient. Dictated and electronically signed, not read. Signing off, Chance Law MD [facility] # [id number] SIRE[facility]
[2017-10-18] MEDS: Pantoprazole 40 mg EC Tab PO SCH (05:22)
[2017-10-18 06:45] LABS: ALB/GLOB RATIO 1.5 (1.1-1.8); BILIRUBIN,TOTAL 0.7 mg/dL (0.2-1.3); CALCIUM 9.1 mg/dL (8.4-10.5); POTASSIUM 4.8 mmol/L (3.6-5.0); TOTAL PROTEIN 5.8 g/dL (5.8-8.3)
[2017-10-18 07:09] LABS: BASO # 0.01 K/mm3 (0.0-2.0); BASO % 0.1 % (0.0-3.0); EOS # 0.1 (0.0-0.7); EOS % 0.8 % (1.5-5.0); GRAN # 5.13 (1.4-6.5); GRAN % 69.9 % (50.0-68.0); HEMATOCRIT 33.1 % (36.0-48.0); LYMPH # 1.1 (1.2-3.4); LYMPH % 14.4 % (22.0-35.0); MEAN CELL VOLUME 91.7 fl (80.0-105.0); MEAN CORPUSCULAR HEMOGLOBIN 29.9 pg (25.0-35.0); MEAN CORPUSCULAR HGB CONC 32.6 g/dl (31.0-37.0); MEAN PLATELET VOLUME 10.2 fl (7.0-11.0); MONO # 1.1 (0.1-0.6); MONO % 14.8 % (1.0-6.0); RED CELL DISTRIBUTION WIDTH 13.3 % (11.5-14.5); WHITE BLOOD COUNT 7.4 10^3/ul (4.5-11.0)
[2017-10-18] MEDS: cefTRIAXone 2 GM IN NS 2 GM/100 ML BAG IVPB SCH (09:46)
--- NOTE | 2017-10-18 15:15 | MRI ---
EXAM: MR Head Without Intravenous Contrast CLINICAL HISTORY: 77 years old, female; Signs and symptoms; Altered mental status/memory loss and walking, difficulty; Additional info: Fall, head trauma TECHNIQUE: Magnetic resonance images of the head/brain without intravenous contrast in multiple planes. COMPARISON: CT - HEAD W/O CONTRAST 10/16/2017 6:07:09 PM FINDINGS: Brain: There is moderate patchy increased T2 signal intensity within the periventricular white matter, consistent with chronic microvascular ischemic changes.There are multiple small focal areas of chronic ischemia in bilateral frontal, parietal and periatrial white matter. Chronic ischemic changes/lacunar infarctions are seen in bilateral basal ganglia. There is no abnormal diffusion weighted signal intensity to suggest an acute ischemic event. On gradient echo imaging, no susceptibility changes are seen to represent parenchymal calcification or degraded blood products. There is mild diffuse cerebral atrophy present, consistent with this patient's age. Brainstem: Chronic ischemic changes are seen in the tish. Ventricles: The ventricular system demonstrates mild diffuse compensatory enlargement. Bones/joints: Unremarkable. Soft tissues: Extensive scalp hematoma is again noted in the right frontal lesion. Sinuses: Unremarkable as visualized. No acute sinusitis. Mastoid air cells: Unremarkable as visualized. No mastoid effusion. Orbits: Unremarkable as visualized. 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 IMPRESSION: No acute infarction, masses or hemorrhage is seen. No acute intracranial abnormality is identified.There has been no adverse interval change since the previous study. Diffuse age-related cerebral atrophy and moderate chronic microvascular white matter ischemic changes, without evidence of an acute intracranial abnormality. Extensive scalp hematoma is again noted in the right frontal lesion. 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
--- NOTE | 2017-10-18 15:35 | MRI ---
EXAM: MR Angiography Head Without Intravenous Contrast CLINICAL HISTORY: 77 years old, female; Signs and symptoms; Headache; Additional info: Fall, head trauma TECHNIQUE: Magnetic resonance angiography images of the head without intravenous contrast. 3D and MIP reconstructed images were created and reviewed. COMPARISON: CT - HEAD W/O CONTRAST 2017-10-16 18:07 FINDINGS: Right internal carotid artery: No acute findings. Intracranial segment is patent with no significant stenosis. No aneurysm. Right anterior cerebral artery: Unremarkable. No occlusion or significant stenosis. No aneurysm. Right middle cerebral artery: Unremarkable. No occlusion or significant stenosis. No aneurysm. Right posterior cerebral artery: Unremarkable. No occlusion or significant stenosis. No aneurysm. Right vertebral artery: Unremarkable as visualized. Left internal carotid artery: Examination again demonstrates a patent stent in the cavernous segment of the left internal carotid artery also noted on the previous CT scan. There is mild diffuse narrowing noted in the region of the stent. 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 No flow is seen in the aneurysm. Left anterior cerebral artery: Unremarkable. No occlusion or significant stenosis. No aneurysm. Left middle cerebral artery: Unremarkable. No occlusion or significant stenosis. No aneurysm. Left posterior cerebral artery: Unremarkable. No occlusion or significant stenosis. No aneurysm. Left vertebral artery: Unremarkable as visualized. Basilar artery: Unremarkable. No occlusion or significant stenosis. No aneurysm. IMPRESSION: Examination again demonstrates a patent stent in the cavernous segment of the left internal carotid artery also noted on the previous CT scan. There is mild diffuse narrowing noted in the region of the stent. 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 No flow is seen in the aneurysm.
[2017-10-18] MEDS: Sodium Chloride 0.9% 1,000 ML IV SCH (20:28)
--- NOTE | 2017-10-18 20:49 | PN ---
DATE: 10/17/2017 SUBJECTIVE: The patient is seen in room 562, bed 1. The patient was seen and examined with the patient's nurse. The patient was found to be alert, awake, responsive and had cervical collar on at present. The patient had supraorbital and periorbital hematoma and swelling and periorbital puffiness. OBJECTIVE: VITAL SIGNS: T-max 98.3 and pulse rate 74 to 65. Respirations 20 and O2 sat is 97% to 98%. HEENT: Shows positive periorbital hematoma and puffiness and right supraorbital hematoma and swelling. [place] conjunctivae. Positive facial contusions noted. NECK: No neck rigidity. Positive cervical collar. CHEST: Kyphosis. LUNGS: Shows occasional rhonchi in upper lung huerta. CARDIOVASCULAR: S1 and S2. Questionable systolic murmur right second costal space, left sternal border. ABDOMEN: Soft. Positive bowel sounds. GENITALIA: Female. RECTAL: Deferred. EXTREMITIES: Lower extremity shows no pitting edema. No calf tenderness. No Homans signs. Upper extremity, the patient is able to move upper extremity without any assistance. Gait examination is not tested. MUSCULOSKELETAL: 17.7. DIAGNOSTIC DATA: On 10/17/2017; WBC 11.3, hemoglobin/hematocrit 13.3 and 40.1, and platelet 223. Granulocytes 83% segs. Sodium is 135, potassium 4.6, chloride 92, CO2 of 36, anion gap 12, BUN 15, creatinine 1.0, GFR greater than 60, glucose 137, calcium 10.0, and magnesium 2.1. LFTs are negative. Troponin is negative. Urine cultures are negative. Blood type is O+. The patient's cervical spine, CT hip and pelvis x-ray is reviewed. The patient's official maxillofacial CT and head CT results are still not available. EKG, baseline artifact. IMPRESSION: 1. Facial and periorbital and supraorbital contusion and hematoma. 2. Status post mechanical fall. 3. History of hypertension, history of cerebrovascular accident with left internal carotid artery stenting. 4. Facial contusion and hematoma. 5. Mild right-sided spastic weakness. 6. Hypertension. 7. Leukocytosis with granulocytosis. 8. Hypokalemia. 9. Metabolic alkalosis. 10. Hyperglycemia. 11. Left hand extensive degenerative joint disease with involving the carpometacarpal joint space with soft tissue swelling and osseous demineralization. 12. Left hip osseous demineralization. 13. Constipation. 14. Cervical spine degenerative disk disease without any acute fracture. 15. Right upper lobe pleural thickening and left-sided pleural calcification. 16. Multiple calcified pleural plaques bilateral suggestive of asbestos pleural disease. 17. Right upper lobe pleural thickening with suspected left-sided pleural calcification and asbestos-related bilateral pleural disease. 18. Oblique mildly displaced comminuted fracture of the anterior superior left iliac crest. 19. Degenerative joint disease. 20. Sinus bradycardia. 21. Left axis deviation. 22. Hypertensive cardiovascular disease and left ventricular hypertrophy. 23. Gait dysfunction. 24. Deconditioning. 25. History of glaucoma. 26. History of dementia. 27. History of neuropathy. 28. History of hypertension. 29. Hypokalemia. 30. Metabolic alkalosis. 31. Hyperglycemia. 32. Pain syndrome secondary to fall. 33. Facial trauma and contusion, status post mechanical fall. 34. Questionable urinary tract infection. 35. Status post intractable nausea and vomiting secondary to fall. 36. History of herniated disk and back pain problem. 37. History of cataract. PLAN: At this time, the patient has been ordered repeat labs. The patient has been ordered ENT, Neurology consultation, and Orthopedic consultation. CURRENT MEDICATIONS: Aspirin 81 daily, Lumigan eyedrops daily, clonidine 0.1 mg twice a day, Cymbalta 30 mg at bedtime, Exelon 4.6 mg patch daily, heparin 5000 subcutaneously q.12 hours, potassium supplementation has been ordered, Norvasc 5 mg daily, Plavix 75 mg daily, the patient was also given potassium rider, Protonix 40 mg daily, Reglan 5 mg IV a.c. and at bedtime, and the patient is on Rocephin 2 g IV daily. The patient is on Toradol 15 mg IV q.6 hours p.r.n. for pain, Ultram 100 mg 3 times a day, and Zofran 4 mg IV q.4 hours p.r.n. In addition, the patient has been ordered MRI of the brain and MRA of the brain. I have called the radiology regarding the official report of the CT head and maxillofacial CT. Heart-healthy diet ordered, bed rest ordered, neuro checks ordered, seizure precaution ordered, and SCDs and ANNA stockings ordered. Dictated and electronically signed, not read. Chance MD [facility] # [id number] SIRENA
--- NOTE | 2017-10-18 21:14 | PN ---
DATE: 10/18/2017 SUBJECTIVE: The patient is seen on her way to the MRI. There was a question about the patient's brain clips, which was resolved prior to the MRI. Overnight nurse's notes were reviewed. The patient stayed in bed. The patient is awaiting orthopedic and ENT evaluation. There was no adverse events documented. OBJECTIVE: VITAL SIGNS: T-max 98.2, pulse 76, blood pressure 150/88 to 113/65, respirations 20, and O2 sat 97% to 98%. HEENT: Head examination shows positive periorbital edema and periorbital hematoma and periorbital discoloration right more than the left and supraorbital hematoma right more than the left and facial contusions and hematoma and bruising. Oral mucosa is dry. NECK: No neck rigidity. CHEST: Shows kyphosis. LUNGS: Does not reveal any crackles or rales. CARDIOVASCULAR: S1, S2, regular rhythm. ABDOMEN: Soft. Positive bowel sounds and nontender. GENITALIA: Female. RECTAL: Deferred. EXTREMITIES: Lower extremity shows no pitting edema. No calf tenderness. No Homans sign. NEUROLOGIC: The patient is awake, responsive, and lying in the bed. The patient is alert, awake, and oriented x3 as per the nurse's notes and today. Gait examination is not tested. MUSCULOSKELETAL: Examination is almost 18. DIAGNOSTIC DATA: On 10/18/2017; WBC 7.4, hemoglobin/hematocrit 10.8 and 33.1, and platelet 172. Granulocytes 70% segs. Sodium 135, potassium 4.8, chloride 100, CO2 of 28, anion gap 11, BUN 18, creatinine is up to 1.4 from 1.2, GFR 44, glucose 94, and calcium 9.1. LFTs are normal. The patient had an MRI of the brain and MRI venograft of the head and brain, which is pending. CT maxillofacial and CT head results are still pending. IMPRESSION: 1. Status post mechanical fall. 2. Facial periorbital and supraorbital contusions and hematoma. 3. History of hypertension. 4. History of dementia, history of neuropathy, and history of cerebrovascular accident with left internal carotid artery stents. 5. Normocytic anemia. 6. Granulocytosis. 7. Hypokalemia. 8. Metabolic alkalosis. 9. Acute kidney injury. 10. Microscopic hematuria. 11. Pyuria. 12. Gait dysfunction. 13. Intractable nausea and vomiting secondary to mechanical fall (resolved). 14. Left anterior superior iliac crest oblique minimally displaced comminuted fracture. 15. Osseous demineralization. 16. Degenerative joint disease. 17. History of cataract surgery. 18. History of dementia. 19. Hypertension. 20. Fascial periorbital and supraorbital hematoma and contusion and possible cellulitis. PLAN: At this time, ENT consultation pending. Orthopedic consultation pending. Neurology recommendations noted. Repeat labs ordered. CURRENT MEDICATIONS: 1. Aspirin 81 mg daily. 2. Lumigan eyedrops both eyes at bedtime. 3. Clonidine 0.1 mg twice a day. 4. Cymbalta 30 mg at bedtime. 5. Exelon patch 4.6 mg daily. 6. Heparin 5000 subcutaneously q.12 hours. 7. Norvasc 5 mg daily. 8. Plavix 75 mg daily. 9. Protonix 40 mg daily. 10. Reglan 5 mg IV a.c. and at bedtime. 11. Rocephin 2 g IV daily. 12. IV fluids 0.9 at 100 mL an hour. 13. Toradol 15 mg IV push q.6 hours p.r.n. 14. Ultram 100 mg three times a day. 15. Zofran 4 mg IV q.4 hours p.r.n. MRI of the brain and MRA of the brain was ordered. Heart-healthy diet. Neuro checks ordered. At present, the patient's further management will be dependent upon the patient's clinical condition, hemodynamic status, and as per the patient response to therapeutic intervention as per the patient's diagnostic test results and recommendation by ENT and Neurology. Dictated and electronically signed, not read. Chance Law MD
[2017-10-18] MEDS: BIMATOPROST BOTHEYES SCH (21:57)
--- NOTE | 2017-10-18 23:48 | CT ---
PROCEDURE: CT MAXILLOFACIAL BONES WITHOUT CONTRAST HISTORY: trauma COMPARISON: None TECHNIQUE: Contiguous axial CT images of the maxillofacial bones were obtained. Coronal and sagittal reformats were generated. Radiation dose: Total exam DLP = 73.50 mGy-cm. This CT exam was performed using one or more of the following dose reduction techniques: Automated exposure control, adjustment of the mA and/or kV according to patient size, and/or use of iterative reconstruction technique. FINDINGS: NASAL BONES: Unremarkable. ORBITS: No fracture identified however there is a large right frontal scalp hematoma with edema and hematoma is appearing [id number] severity in the bilateral preseptal periorbital soft tissues. No postseptal involvement of the orbits bilaterally. PARANASAL SINUSES/ MASTOIDS: Clear. MAXILLA: Unremarkable. MANDIBLE/ TEMPOROMANDIBULAR JOINTS: Unremarkable. SKULL BASE: Unremarkable. TEMPORAL BONES: Middle ears and mastoid grossly unremarkable. OTHER FINDINGS: None. IMPRESSION: Posttraumatic hematomas and soft tissue edema is seen in the bilateral periorbital and right frontal soft tissue regions but without underlying fracture related. Periorbital edema at and hematoma is preseptal only with no obvious postseptal involvement bilaterally.
--- NOTE | 2017-10-19 00:33 | CON ---
DATE: 10/18/2017 OTOLARYNGOLOGY CONSULT REFERRING PHYSICIAN: Dr. Law. REASON FOR CONSULTATION: Facial hematoma and contusion. HISTORY OF PRESENT ILLNESS: This is a 77-year-old female with past medical history of carotid artery stenosis status post stent, on aspirin and Plavix; hypertension; cataracts; and cervical pain, who presented to the emergency room at [facility] for mechanical fall. The patient states she was walking outside and had lost her balance, tripped and fell on her face. The patient states she does not lose consciousness, but did have significant facial pain. The patient was then brought to the emergency room and underwent CT of the maxillofacial structures and had sustained hematoma above the right eye and left zygoma. The patient states she is feeling improved over the past 2 days and states that now she can see out of her right eye since there is less swelling. She denies any rhinorrhea, significant headache, dizziness, trismus or changes in her vision. Patient states she has to take her aspirin and Plavix since she has a stent in her left carotid artery. She denies any numbness or tingling in her face. PAST MEDICAL HISTORY: Hypertension, previous CVA, status post left ICA stent, and cataracts. PAST SURGICAL HISTORY: No previous surgeries of the head or neck. SOCIAL HISTORY: No tobacco. No alcohol. No illicit drugs. ALLERGIES: ERYTHROMYCIN, IODINE, AND LATEX. MEDICATIONS: As per med rec. FAMILY HISTORY: No pertinent family history. REVIEW OF SYSTEMS: A 12-point review of system is negative except as stated in the HPI. PHYSICAL EXAMINATION: VITAL SIGNS: Temperature 99, pulse 74, blood pressure 135/82, respirations 20, and oxygen 97% on room air. GENERAL: Alert and oriented, no acute distress, lying in bed comfortably. HEAD: Normocephalic. FACE: There is a large 2-3 cm hematoma above the right brow that is firm with surrounding ecchymosis and swelling into the right upper eyelid. The eyes open at rest. There is a hematoma on the left zygoma with some mild periorbital edema of the eyes. The left eye is open at rest. There is periorbital ecchymosis on both eyes. NOSE: There are no nasal bone step-off. EARS: Auricles are symmetric. Tympanic membranes are easily visualized and are normal. MOUTH: Mucous membranes are moist. There is no trismus. The tongue is non-edematous. Tonsils are 2+. Posterior oropharynx is clear. NECK: Soft collar in place, nontender. RESPIRATORY: Breathing is nonlabored. LABORATORY DATA: WBC is 7.4, RBC 3.61, hemoglobin 10.8, hematocrit 33.1, and platelets 172. PT 11.9, PTT 27.3, INR 1.09. Sodium 135, potassium 4.8, BUN 18, and creatinine 1.4. RADIOLOGY: Maxillofacial CT, there is a large hematoma of the soft tissues above the right eye. No visible retrobulbar hematomas. No obvious fractures as read by me. Full radiology report not uploaded. ASSESSMENT: This is a 77-year-old female, who sustained mechanical fall and has a large firm hematoma of the right brow and a moderate hematoma of left zygoma. No functional deficits. No indication for drainage at this time. PLAN: 1. Continue ice compresses. 2. Keep head of the bed elevated. 3. Please follow hemoglobin closely. 4. If the patient's hemoglobin drops below 8, we would recommend transfusing. 5. Continue to monitor the patient. Her swelling seems to be improving as per patient. 6. No surgical intervention at this time. Thank you for allowing us to participate in the care of the patient. Patrick Yang DO
[2017-10-19] MEDS: Sodium Chloride 0.9% 1,000 ML IV SCH ×2 (05:10→16:02)
[2017-10-19] MEDS: Pantoprazole 40 mg EC Tab PO SCH (05:10)
[2017-10-19 06:50] LABS: BASO # 0.01 K/mm3 (0.0-2.0); BASO % 0.1 % (0.0-3.0); EOS # 0.1 (0.0-0.7); EOS % 1.3 % (1.5-5.0); GRAN # 4.91 (1.4-6.5); HEMATOCRIT 34.2 % (36.0-48.0); LYMPH # 1.1 (1.2-3.4); LYMPH % 16.3 % (22.0-35.0); MEAN CELL VOLUME 91.2 fl (80.0-105.0); MEAN CORPUSCULAR HEMOGLOBIN 29.9 pg (25.0-35.0); MEAN CORPUSCULAR HGB CONC 32.7 g/dl (31.0-37.0); MONO # 0.6 (0.1-0.6); MONO % 9.3 % (1.0-6.0); WHITE BLOOD COUNT 6.7 10^3/ul (4.5-11.0)
[2017-10-19 07:19] LABS: ALB/GLOB RATIO 1.5 (1.1-1.8); BILIRUBIN,TOTAL 0.6 mg/dL (0.2-1.3); CALCIUM 9.6 mg/dL (8.4-10.5); POTASSIUM 4.7 mmol/L (3.6-5.0); TOTAL PROTEIN 6.4 g/dL (5.8-8.3)
--- NOTE | 2017-10-19 08:55 | CP.PCM.PN ---
Subjective - Date & Time of Evaluation Date of Evaluation: 10/19/17 Time of Evaluation: 08:55 - Subjective Subjective: PGY-[address] Law Pain improves. Denture dropps down which make eating difficult. (+) BM on bed pen, denies straining, no need laxative Objective - Vital Signs/Intake and Output Vital Signs (last 24 hours): Temp Pulse Resp BP Pulse Ox 98.8 F 73 20 136/78 100 10/19/17 07:30 10/19/17 07:30 10/19/17 07:30 10/19/17 07:30 10/19/17 07:30 Intake and Output: 10/19/17 10/19/17 06:59 18:59 Intake Total 3120 Output Total 650 Balance 2470 - Medications Medications: Current Medications Amlodipine Besylate (Norvasc) 5 mg PO DAILY [facility] Last Admin: 10/18/17 09:28 Dose: 5 mg Aspirin (Aspirin Chewable) 81 mg PO DAILY [facility] Last Admin: 10/18/17 09:29 Dose: 81 mg Clonidine HCl (Catapres) 0.1 mg PO BID [facility] Last Admin: 10/18/17 17:35 Dose: 0.1 mg Clopidogrel Bisulfate (Plavix) 75 mg PO DAILY [facility] Last Admin: 10/18/17 09:28 Dose: 75 mg Duloxetine HCl (Cymbalta) 30 mg PO HS [facility] Last Admin: 10/18/17 21:56 Dose: 30 mg Heparin Sodium (Porcine) (Heparin) 5,000 units SC Q12 [facility] PRN Reason: Protocol Last Admin: 10/18/17 21:56 Dose: 5,000 units Ceftriaxone Sodium (Rocephin 2 Gm Ivpb) 2 gm in 100 mls @ 100 mls/hr IVPB DAILY [facility] PRN Reason: Protocol Last Admin: 10/18/17 09:46 Dose: 100 mls/hr Sodium Chloride (Sodium Chloride 0.9%) 1,000 mls @ 100 mls/hr IV .Q10H [facility] Stop: 10/20/17 10:59 Last Admin: 10/19/17 05:10 Dose: 100 mls/hr Ketorolac Tromethamine (Toradol) 15 mg IVP Q6H PRN PRN Reason: Pain, moderate (4-7) Last Admin: 10/19/17 05:10 Dose: 15 mg Metoclopramide HCl (Reglan) 5 mg IVP ACHS [facility] Last Admin: 10/18/17 21:56 Dose: 5 mg Bimatoprost [Lumigan (] 1 Drop (Home Med)) 1 drop BOTHEYES HS [facility] Last Admin: 10/18/17 21:57 Dose: 1 drop Ondansetron HCl (Zofran Inj) 4 mg IVP Q4H PRN PRN Reason: Nausea/Vomiting Pantoprazole Sodium (Protonix Ec Tab) 40 mg PO 0600 [facility] Last Admin: 10/19/17 05:10 Dose: 40 mg Rivastigmine (Exelon 4.6 Mg/24 Hr Patch) 1 patch TD DAILY [facility] Last Admin: 10/18/17 09:31 Dose: 1 patch Tramadol HCl (Ultram) 100 mg PO TID [facility] Last Admin: 10/18/17 17:37 Dose: 100 mg - Labs Labs: 10/19/17 06:20 10/19/17 06:20 PT 11.9 SECONDS (9.4-12.5) 10/16/17 18:00 INR 1.09 (0.93-1.08) H 10/16/17 18:00 APTT 27.3 Seconds (25.1-36.5) 10/16/17 18:00 - Constitutional Appears: No Acute Distress - Head Exam Head Exam: ATRAUMATIC, NORMAL INSPECTION, NORMOCEPHALIC - Eye Exam Eye Exam: EOMI, Normal appearance, PERRL Additional comments: induration and ecchymosis around R and L eyes - ENT Exam ENT Exam: Mucous Membranes Moist Additional comments: loose denture - Neck Exam Additional comments: supple - Respiratory Exam Respiratory Exam: Clear to Ausculation Bilateral. absent: Rales, Rhonchi, Wheezes - Cardiovascular Exam Cardiovascular Exam: REGULAR RHYTHM, +S1, +S2 - GI/Abdominal Exam GI & Abdominal Exam: Soft, Normal Bowel Sounds. absent: Guarding, Rigid, Tenderness - Extremities Exam Extremities Exam: absent: Calf Tenderness - Neurological Exam Neurological Exam: Alert, Awake - Psychiatric Exam Psychiatric exam: Normal Affect, Normal Mood - Skin Skin Exam: Dry, Warm Assessment and Plan - Assessment and Plan (Free Text) Plan: Ms Partida, 77 y/o F, with PMH of HTN, b/l cataracts, CVA s/p Left ICA stent presents for mechanical fall. Pt sustained iriac crest fracture. Pt underwent Head, Maxillofacial, and Cervical CT scans which were all negative for acute fracture. Wrist and hip x-ray official reads pending at this time. Pt with extensive soft tissue swelling along right and left eye with no acute vision changes High fall risk Mechanical Fall L hip pain L Oblique displaced comminuted fracture of anterior suproer iliac crest facial trauma Postraumatic hematoms and soft tissue edema - Tramadol standing 100 TID; Toradol for pain 15q6 iv - NS @ 100 - Cold compresses prn - CPK nl - No delay bleeding per MRI - goal BP 130-140 - Get Pt/OT eval - Orthostatic VS - neuro ck, seiaure precaution UTI - ROcephin 2g started -- ? - Culture neg Intractable nausea and vomiting - Zofran prn - Reglan luis 5 ivp achs HTN - Hold thiazide, Bystolic - Continue amlodipine 5qd and clonidine 0.1 bid Hx of left ICA stent - Continue ASA and plavix for stroke prevention, avoid sedating meds B/l cataracts - Continue home drops, lumigan cymbalta (duloxetine), rivastigmine patch Discharge planning - feed in worker referral PPX: Protonix. Heparin q12, AE hose, SCD FEN: Bedrest, HHD at bite size for loose denture, NS@100 Consult: ENT - Dr. Duarte, Dr. Das NEurol = Dr. Coates Ortho = Dr. Sharma Imaging: Hand xray: No acute fracture LE CT: L Oblique displaced comminuted fracture of anterior suproer iliac crest Head/brain Venograph: 8mm thrombosed aneywym L ICA, supraclinoid projecting anterior/superior, w/o flow. L ICA stent in cavernous segment is patent. Brain MRI: stable. no acute changes. 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 Repribital edema at preseptal. no post septal Cervical spine CT: No acute fracture CXR: R Upper lobe pleural thickening, L pleural calcification. b/l pleural plaques suggestive of asbestos EKG: Sinus brunilda 56. QTc 447 S/R/D/w Dr. Law
--- NOTE | 2017-10-19 09:39 | CP.PCM.PN ---
<Valentina Redman - Last Filed: 10/19/17 15:40> Subjective - Date & Time of Evaluation Date of Evaluation: 10/19/17 Time of Evaluation: 09:37 - Subjective Subjective: PGY-[address] Coates's service Patient seen and examined at bedside not acute distress, she is resting comfortably. She denies any pain. She denies headache, dizziness, lightheadedness. Objective - Vital Signs/Intake and Output Vital Signs (last 24 hours): Temp Pulse Resp BP Pulse Ox 98.8 F 73 20 136/78 100 10/19/17 07:30 10/19/17 07:30 10/19/17 07:30 10/19/17 07:30 10/19/17 07:30 Intake and Output: 10/19/17 10/19/17 06:59 18:59 Intake Total 3120 Output Total 650 Balance 2470 - Medications Medications: Current Medications Amlodipine Besylate (Norvasc) 5 mg PO DAILY [facility] Last Admin: 10/18/17 09:28 Dose: 5 mg Aspirin (Aspirin Chewable) 81 mg PO DAILY [facility] Last Admin: 10/18/17 09:29 Dose: 81 mg Clonidine HCl (Catapres) 0.1 mg PO BID [facility] Last Admin: 10/18/17 17:35 Dose: 0.1 mg Clopidogrel Bisulfate (Plavix) 75 mg PO DAILY [facility] Last Admin: 10/18/17 09:28 Dose: 75 mg Duloxetine HCl (Cymbalta) 30 mg PO HS [facility] Last Admin: 10/18/17 21:56 Dose: 30 mg Heparin Sodium (Porcine) (Heparin) 5,000 units SC Q12 ERNIE PRN Reason: Protocol Last Admin: 10/18/17 21:56 Dose: 5,000 units Ceftriaxone Sodium (Rocephin 2 Gm Ivpb) 2 gm in 100 mls @ 100 mls/hr IVPB DAILY ERNIE PRN Reason: Protocol Last Admin: 10/18/17 09:46 Dose: 100 mls/hr Sodium Chloride (Sodium Chloride 0.9%) 1,000 mls @ 100 mls/hr IV .Q10H [facility] Stop: 10/20/17 10:59 Last Admin: 10/19/17 05:10 Dose: 100 mls/hr Ketorolac Tromethamine (Toradol) 15 mg IVP Q6H PRN PRN Reason: Pain, moderate (4-7) Last Admin: 10/19/17 05:10 Dose: 15 mg Metoclopramide HCl (Reglan) 5 mg IVP ACHS [facility] Last Admin: 10/18/17 21:56 Dose: 5 mg Bimatoprost [Lumigan (] 1 Drop (Home Med)) 1 drop BOTHEYES HS [facility] Last Admin: 10/18/17 21:57 Dose: 1 drop Ondansetron HCl (Zofran Inj) 4 mg IVP Q4H PRN PRN Reason: Nausea/Vomiting Pantoprazole Sodium (Protonix Ec Tab) 40 mg PO 0600 [facility] Last Admin: 10/19/17 05:10 Dose: 40 mg Rivastigmine (Exelon 4.6 Mg/24 Hr Patch) 1 patch TD DAILY [facility] Last Admin: 10/18/17 09:31 Dose: 1 patch Tramadol HCl (Ultram) 100 mg PO TID [facility] Last Admin: 10/18/17 17:37 Dose: 100 mg - Labs Labs: 10/19/17 06:20 10/19/17 06:20 PT 11.9 SECONDS (9.4-12.5) 10/16/17 18:00 INR 1.09 (0.93-1.08) H 10/16/17 18:00 APTT 27.3 Seconds (25.1-36.5) 10/16/17 18:00 - Constitutional Appears: No Acute Distress - Head Exam Additional comments: multiple facial contusion - Eye Exam Eye Exam: EOMI - Respiratory Exam Respiratory Exam: Clear to Ausculation Bilateral, NORMAL BREATHING PATTERN. absent: Wheezes, Respiratory Distress - Cardiovascular Exam Cardiovascular Exam: REGULAR RHYTHM, +S1, +S2. absent: Tachycardia - Neurological Exam Neurological Exam: Alert, Awake, CN II-XII Intact, Oriented x3 Neuro motor strength exam: Left Upper Extremity: 5, Right Upper Extremity: 5, Left Lower Extremity: 5, Right Lower Extremity: 5 - Skin Skin Exam: Dry, Normal Color, Warm Assessment and Plan - Assessment and Plan (Free Text) Assessment: 77 yo female with PMH of HTN. bilateral cataracts, CVA, s/p left ICA stent and spastic mild right-sided weakness associated with right upper extremity presented with mechanical fall after trippingon sidewalk. 1. mechanical fall - CT head no acute fractures or bleeding - MRI showed only chronic mircovascular changes, scalp hematoma, 8mm aneurysm - aneurysm will be monitored out patient - maintain systolic BP between 130-140 - continue asa and plavix - avoid sedating medications to prevent deterioration of mental status - monitor electrolytes correct as needed - PT/OT - possible subacute rehab Thank you for the consult, please reconsult if needed case reviewed and discussed with attending <Ray Coates - Last Filed: 10/19/17 23:01> Objective - Vital Signs/Intake and Output Vital Signs (last 24 hours): Temp Pulse Resp BP Pulse Ox 97.5 F L 83 20 145/95 H 98 10/19/17 16:00 10/19/17 17:13 10/19/17 16:00 10/19/17 17:13 10/19/17 16:00 Intake and Output: 10/19/17 10/20/17 18:59 06:59 Intake Total 840 Balance 840 - Medications Medications: Current Medications Amlodipine Besylate (Norvasc) 5 mg PO DAILY [facility] Last Admin: 10/19/17 10:25 Dose: 5 mg Aspirin (Aspirin Chewable) 81 mg PO DAILY [facility] Last Admin: 10/19/17 10:25 Dose: 81 mg Clonidine HCl (Catapres) 0.1 mg PO BID [facility] Last Admin: 10/19/17 17:13 Dose: 0.1 mg Clopidogrel Bisulfate (Plavix) 75 mg PO DAILY [facility] Last Admin: 10/19/17 10:25 Dose: 75 mg Duloxetine HCl (Cymbalta) 30 mg PO HS [facility] Last Admin: 10/19/17 21:50 Dose: 30 mg Heparin Sodium (Porcine) (Heparin) 5,000 units SC Q12 [facility] PRN Reason: Protocol Last Admin: 10/19/17 21:50 Dose: 5,000 units Ceftriaxone Sodium (Rocephin 2 Gm Ivpb) 2 gm in 100 mls @ 100 mls/hr IVPB DAILY [facility] PRN Reason: Protocol Last Admin: 10/19/17 10:17 Dose: 100 mls/hr Sodium Chloride (Sodium Chloride 0.9%) 1,000 mls @ 100 mls/hr IV .Q10H [facility] Stop: 10/20/17 10:59 Last Admin: 10/19/17 16:02 Dose: 100 mls/hr Ketorolac Tromethamine (Toradol) 15 mg IVP Q6H PRN PRN Reason: Pain, moderate (4-7) Last Admin: 10/19/17 22:08 Dose: 15 mg Metoclopramide HCl (Reglan) 5 mg IVP ACHS [facility] Last Admin: 10/19/17 21:50 Dose: 5 mg Bimatoprost [Lumigan (] 1 Drop (Home Med)) 1 drop BOTHEYES HS [facility] Last Admin: 10/19/17 21:50 Dose: 1 drop Ondansetron HCl (Zofran Inj) 4 mg IVP Q4H PRN PRN Reason: Nausea/Vomiting Pantoprazole Sodium (Protonix Ec Tab) 40 mg PO 0600 [facility] Last Admin: 10/19/17 05:10 Dose: 40 mg Rivastigmine (Exelon 4.6 Mg/24 Hr Patch) 1 patch TD DAILY [facility] Last Admin: 10/19/17 10:22 Dose: 1 patch Tramadol HCl (Ultram) 100 mg PO TID [facility] Last Admin: 10/19/17 17:13 Dose: 100 mg - Labs Labs: PT 11.9 SECONDS (9.4-12.5) 10/16/17 18:00 INR 1.09 (0.93-1.08) H 10/16/17 18:00 APTT 27.3 Seconds (25.1-36.5) 10/16/17 18:00 Attending/Attestation - Attestation I have personally seen and examined this patient.: Yes I have fully participated in the care of the patient.: Yes I have reviewed all pertinent clinical information, including history, physical exam and plan: Yes
[2017-10-19] MEDS: cefTRIAXone 2 GM IN NS 2 GM/100 ML BAG IVPB SCH (10:17)
--- NOTE | 2017-10-19 10:31 | CON ---
DATE: 10/19/2017 INPATIENT CONSULT REASON FOR CONSULTATION: Status post fall with left hip pain. HISTORY OF PRESENT ILLNESS: Consult is as follows, this is a 77-year-old female who sustained a fall few days ago, who came in with complaints of left-sided hip pain. The patient also came in wearing a cervical collar. She said that she was told that she would need surgery for her neck. She has an outside doctor who is following her for this. Today, she states that since admission, she really has not ambulated. She does have some complaint of left-sided pelvic pain. She denies any numbness or tingling going down in any of her extremities. She denies any change in bowel or bladder habits. PHYSICAL EXAMINATION: GENERAL: She is awake, alert, and oriented x3. She has a soft cervical collar in place. NEUROLOGIC: She is grossly intact in all extremities. Her reflexes are physiologic. She has some left-sided tenderness to palpitation of the iliac crest. She has no pain with passive internal or external rotation of the hip. She is able to do a straight leg raise without any significant pain on both legs. She is able to flex both knees without any pain. There is no obvious swelling or deformity. Her thighs and calves are soft and nontender. She is moving her ankles and her toes. She had a CT of the cervical spine, which showed no acute fractures or dislocations with multilevel degenerative changes. She had a x-rays and a CAT scan of the left hip. CAT scan was consistent with what looks like minimally displaced fracture of the left iliac crest. IMPRESSION: Left iliac crest fracture. PLAN: At this point, recommendation will be to mobilize as tolerated. We are going to allow to weightbear as tolerated. For now, recommend possible placement in rehab for gait training. For now, we will continue DVT prophylaxis. Tomás Roper MD
[2017-10-19] MEDS: BIMATOPROST BOTHEYES SCH (21:50)
[2017-10-20] MEDS: Sodium Chloride 0.9% 1,000 ML IV SCH (01:24)
--- NOTE | 2017-10-20 02:18 | PN ---
DATE: 10/19/2017 SUBJECTIVE: The patient is seen lying in the bed today in room 562, bed 1. Overnight nurse's notes were reviewed. The patient's is seen lying in the bed. The patient is able to open her eyes completely. The patient has almost complete resolution of the periorbital swelling and puffiness. The patient still has supraorbital hematoma and infraorbital hematoma and contusion which is significantly lessened since the day of admission. Overnight nurse's notes were reviewed. PHYSICAL EXAMINATION: VITAL SIGNS: T-max 97.5, heart rate 73, 83, blood pressure 136/78, 140/87, 136/78, respirations 20, O2 sat is 98-97%. HEENT: Examination shows decreasing periorbital puffiness and swelling. Decreasing supraorbital hematoma and infraorbital hematoma. NECK: No cervical collar today. CHEST: Kyphosis. LUNGS: Examination shows occasional rhonchi in upper lung field anteriorly. CARDIOVASCULAR: S1, S2, regular rhythm. ABDOMEN: Soft. Positive bowel sound. GENITALIA: Female. RECTAL: Deferred. EXTREMITIES: Shows no pitting, no calf tenderness. No Homans' sign. NEUROLOGIC: The patient is alert, awake, responsive, is able to move upper and lower extremities without assistance. Gait examination is not tested. Cranial nerves II-XII limited. VASCULAR: Palpable pulses. DIAGNOSTICS: 10/19/2017, WBC 6.7, hemoglobin/hematocrit 11.2, 34.2, platelets 165. Granulocytes 73% segs. Sodium 138, potassium 4.7, chloride 103, CO2 30, anion gap 10, BUN 12, creatinine 1.1, GFR 59, glucose 93, calcium 9.6, magnesium 2.0. AST is 38. Rest of the LFTs are normal. Urine cultures negative. Blood bank O+. The patient's MRI brain venogram noted. The patient seen by Neurology. The patient seen by ENT and Orthopedics. Their recommendation noted. IMPRESSION AND PLAN: 1. Status post mechanical fall. 2. Multiple facial, supraorbital, periorbital, infraorbital contusions and hematoma and cellulitis secondary to fall. 3. History of cerebrovascular accident status post left internal carotid artery stenting. 4. Mild spastic right upper extremity weakness. 5. Hypertension. 6. Leukocytosis with granulocytosis. 7. Normocytic anemia. 8. Mild transaminitis. 9. Hypokalemia. 10. Ketonuria, hematuria, pyuria, bacteriuria. 11. O+ blood type. 12. Oblique, mildly displaced comminuted fracture of the anterior superior left iliac crest. 13. Degenerative joint disease. 14. Patent stent in the cavernous segment of the left internal carotid artery. 15. Diffuse narrowing in the region of the stent. 16. 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 17. Left internal carotid artery cavernous segment patent stent. 18. Mild diffuse narrowing within the region of the left internal carotid artery cavernous segment stent. 19. Stable 8-mm thrombosed aneurysm arising from supraclinoid left internal carotid artery and projecting anteriorly, superiorly with no flow in the aneurysm. 20. Chronic microvascular ischemic disease of the brain. 21. Multiple chronic ischemic disease of the brain of bilateral frontoparietal and periatrial white matter chronic ischemic disease and lacunar infarcts of the bilateral basal ganglia. 22. Diffuse cerebral cortical atrophy. 23. Chronic pontine ischemic changes. 24. Ventriculomegaly. 25. Right frontal hematoma. 26. Stable 8-mm thrombosed aneurysm with peripheral calcification arousing from the supraclinoid left internal carotid artery. 27. Right upper lobe pleural thickening and suspected left-sided pleural calcification. 28. 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 29. Ectatic aortic . 30. Degenerative joint disease with osteophyte formation and disc space narrowing and facet arthropathy of the cervical spine and thickening of the transverse ligament and synovial hypertrophy of the cervical spine. 31. Large right frontal scalp hematoma with edema and hematoma with [id number] severity of the bilateral preseptal periorbital soft tissue without post-septal involvement. 32. Posttraumatic hematoma and soft tissue edema of the bilateral periorbital and right frontal soft tissue region without underlying fracture and preseptal periorbital edema and hematoma without obvious post-septal involvement bilaterally. 33. Gait dysfunction. 34. Deconditioning. 35. Osseous demineralization of the hips. 36. Left hand soft tissue swelling and osseous demineralization and degenerative joint disease. 37. Left axis deviation and left anterior hemiblock. 38. Left iliac crest nondisplaced fracture. 39. Facial hematomas and contusion. 40. Right supraorbital hematoma and left zygoma, hematoma. 41. Deconditioning. 42. Mild oral dysphagia. 43. Mild oral dysphagia with low-risk aspiration secondary to missing teeth. PLAN: At this time, the patient seen by ENT, the patient seen by Orthopedics. The patient seen by physical therapist. All their recommendation noted. The patient has been ordered TCU evaluation. Current consultation ENT, Neurology Orthopedics. The patient's case is referred for TCU evaluation. CURRENT MEDICATIONS: Aspirin 81 mg daily, Lumigan eyedrops, clonidine 0.1 twice a day, Cymbalta 30 mg daily, Exelon patch 4.6 mg daily, heparin 5000 subcu q. 12 h., Norvasc 5 mg daily, Plavix 75 mg daily, Protonix 40 mg daily, Reglan 5 mg IV before meals and at bedtime, Rocephin 2 g IV daily, IV fluid 0.9 normal saline at 100 mL an hour, Toradol 15 mg IV q. 6 h. p.r.n., Tylenol, Ultram 100 mg 3 times a day, Zofran 4 mg q. 4 h. p.r.n. The patient is on dysphagia, modified consistency diet as per speech therapy evaluation. Their recommendation is to puree with thin liquids which is ordered. The patient is on dysphagia, modified consistency, puree thin liquid diet.. The patient has been ordered out of bed to chair, physical therapy, ambulation therapy ordered. Dictated and electronically signed, not read. Chance Law MD
[2017-10-20 07:24] LABS: BASO # 0.01 K/mm3 (0.0-2.0); BASO % 0.1 % (0.0-3.0); EOS # 0.1 (0.0-0.7); EOS % 1.3 % (1.5-5.0); GRAN # 4.79 (1.4-6.5); HEMATOCRIT 34.2 % (36.0-48.0); LYMPH # 1.5 (1.2-3.4); LYMPH % 21.4 % (22.0-35.0); MEAN CELL VOLUME 89.1 fl (80.0-105.0); MEAN CORPUSCULAR HEMOGLOBIN 30.5 pg (25.0-35.0); MEAN CORPUSCULAR HGB CONC 34.2 g/dl (31.0-37.0); MEAN PLATELET VOLUME 10.5 fl (7.0-11.0); MONO # 0.7 (0.1-0.6); MONO % 9.2 % (1.0-6.0); RED CELL DISTRIBUTION WIDTH 12.9 % (11.5-14.5); WHITE BLOOD COUNT 7.1 10^3/ul (4.5-11.0)
[2017-10-20 07:37] LABS: ALB/GLOB RATIO 1.4 (1.1-1.8); ALKALINE PHOSPHATASE 66 U/L (38-126); ALT/SGPT 35 U/L (7-56); AST/SGOT 36 U/L (14-36); BILIRUBIN,DIRECT 0.3 mg/dL (0.0-0.4); BILIRUBIN,TOTAL 0.6 mg/dL (0.2-1.3); BLOOD UREA NITROGEN 13 mg/dL (7-21); CALCIUM 9.6 mg/dL (8.4-10.5); CARBON DIOXIDE 24 mmol/L (21-33); CHLORIDE 103 mmol/L (98-107); GFR AFRICAN-AMERICAN > 60; GLUCOSE,RANDOM 100 mg/dL (70-110); MAGNESIUM 1.8 mg/dL (1.7-2.2); POTASSIUM 3.9 mmol/L (3.6-5.0); SODIUM 138 mmol/L (132-148); TOTAL PROTEIN 6.9 g/dL (5.8-8.3)
--- NOTE | 2017-10-20 10:17 | CT ---
PROCEDURE: CT HEAD WITHOUT CONTRAST. HISTORY: trauma COMPARISON: None available. TECHNIQUE: Axial computed tomography images were obtained through the head/brain without intravenous contrast. Radiation dose: Total exam DLP = 843.77 mGy-cm. This CT exam was performed using one or more of the following dose reduction techniques: Automated exposure control, adjustment of the mA and/or kV according to patient size, and/or use of iterative reconstruction technique. FINDINGS: HEMORRHAGE: No intracranial hemorrhage. BRAIN: The yeung-white matter differentiation is well preserved. There is no mass effect or definitive edema pattern appreciate including the cortex. There is expansion of the ventriculosulcal and cisternal spaces however in a pattern most compatible with diffuse cerebral atrophy. No suspicious extra-axial fluid collection is identified in the midline brain anatomy appears grossly nonfocal as imaged. VENTRICLES: Unremarkable. No hydrocephalus. CALVARIUM: No destructive bony lesion or displaced fracture identified including through the skullbase. PARANASAL SINUSES: Unremarkable as visualized. No significant inflammatory changes. MASTOID AIR CELLS: Unremarkable as visualized. No inflammatory changes. OTHER FINDINGS: Prominent right frontal scalp/periorbital hematoma noted as well as mild left periorbital hematoma as, all preseptal. IMPRESSION: Age-appropriate age related neuro degenerative changes are identified without acute intracranial findings as discussed above. Prominent right frontal scalp/periorbital hematoma noted as well as mild left periorbital preseptal hematomas. Follow-up CT or MRI are available if clinically warranted.
[2017-10-20] MEDS: cefTRIAXone 2 GM IN NS 2 GM/100 ML BAG IVPB SCH (13:51)
--- NOTE | 2017-10-21 03:08 | PN ---
DATE: 10/20/2017 LOCATION: The patient is seen lying in bed in room number 569, bed 2. SUBJECTIVE: The patient is seen lying in the bed. The patient is complaining that she is not getting the diet which is ordered by the swallowing evaluation. The patient wants to have some food to eat. The patient's overnight nurse's notes were reviewed. The patient was seen by the social work coordinator and dependency case manager. The patient will be eligible for TCU by the next day or so. The patient was seen lying in the bed. The patient's orbital swelling has gone down. The patient's eyes are completely open. The patient's right supraorbital hematoma is slightly decreased and left infraorbital hematoma is also decreased. Right periorbital hematoma is also decreased. PHYSICAL EXAMINATION: VITAL SIGNS: T-max is 98.6 and pulse rate of 74, 90, 78 and 74. Blood pressure in the last 24-hour of 145/95, 153/93, 158/98 and 162/82. The patient's respiration of 20 and O2 saturation of 99%. HEENT: Head examination shows normocephalic and atraumatic. HEENT examination shows positive right supraorbital hematoma decreasing and bluish discoloration. Right periorbital hematoma and right upper eyelid swelling and puffiness decreasing. Positive left periorbital hematoma and left infraorbital hematoma decreasing. NECK: No cervical collar noted. CHEST: Examination shows kyphosis. LUNGS: Examination shows no rales, crackles or wheezing. CARDIOVASCULAR: Examination shows S1 and S2, regular rhythm. GASTROINTESTINAL: Abdomen is soft. Positive bowel sound. GENITALIA: Female. RECTAL: Examination is deferred. EXTREMITIES: Shows no pitting edema, no calf tenderness, and no Homans' sign. NEUROLOGICAL: The patient is alert, awake, responsive, and follows command. She moves upper and lower extremity. Gait examination is not tested. Cranial nerves II through XII limited. VASCULAR: Examination shows palpable pulses. MUSCULOSKELETAL: Body mass index is 16. DIAGNOSTIC STUDIES: On 10/20/2017, WBC of 7.1, hemoglobin and hematocrit of 11.7 and 34.2, and platelet of 179. Sodium of 138, potassium of 3.9, chloride of 103, CO2 of 20, anion gap of 14, BUN of 13, and creatinine of 1.0. GFR is greater than 60, glucose is 100, calcium is 9.6, and magnesium is 1.8. LFTs are normal. Urine cultures are negative. Blood type O positive. The patient seen by Neurology and Orthopedics and recommendation noted. IMPRESSION AND PLAN 1. Status post mechanical fall. 2. Multiple facial supraorbital, periorbital, infraorbital contusion, hematoma and cellulitis secondary to fall. 3. Hypertension. 4. Normocytic anemia. 5. Granulocytosis. 6. Mild metabolic alkalosis. 7. Hypokalemia. 8. Deconditioning. 9. Gait dysfunction. 10. History of cerebrovascular accident. 11. Glaucoma and cataract. 12. Neuropathy. 13. Questionable dementia. 14. History of cerebral infarct. 15. Facial cellulitis and contusion. 16. Status post intractable nausea resolved. 17. Ketonuria, microscopic hematuria, pyuria, and bacteriuria with negative urine culture. 18. O positive blood type. 19. Mild oral dysphagia with low risk for aspiration secondary to missing teeth, minimal fatigue and slow oral transit and oral residue. 20. Questionable feeding dysfunction. PLAN: At this time, the patient seen by case management. The patient is eligible for TCU. The patient seen by physical therapist and recommend TCU. At this time, the patient is on pureed with thin liquid diet. The patient has been ordered repeat labs. The patient has been ordered thyroid panel, lipid panel, vitamin B12, and vitamin D. The patient's current consultation Orthopedics, Neurology and ENT. CURRENT MEDICATIONS: 1. Aspirin 81 mg daily 2. Lumigan eyedrops both eyes at bedtime. 3. Clonidine 0.1 mg twice a day. 4. Cymbalta 30 mg at bedtime. 5. Exelon patch 4.6 mg daily. 6. Heparin 5000 subcutaneous q. 12 hours. 7. Norvasc increased to 10 mg daily. 8. Plavix 75 mg daily. 9. Protonix 40 mg daily. 10. Reglan 5 mg IV a.c. and at bedtime. 11. Rocephin 2 g IV daily. 12. Toradol 15 mg q. 6 hours. six p.r.n. 13. Ultram 100 mg three times a day. 14. Zofran 4 mg IV q. four p.r.n. RECOMMENDATIONS: The patient is on dysphagia modified consistency pureed thin diet. The patient has also been ordered out of bed to chair, ANNA stockings, and SCDs. The patient has been ordered dietary supplementation with Ensure and Boost. The patient has been ordered physical therapy, occupational therapy, gait training, and ambulation therapy. The patient's sister called from [place] regarding the patient's condition. I have advised the patient's sister to please have visit the patient as the patient most likely will require 24-hour care and supervision upon discharge because of the patient's acute injury and underlying multiple comorbidity. The patient's sister is interested in moving the patient to [place] with her. I have advised the patient's sister to speak to the case management, discharge planning and social media content manager for discharge planning options. I have extensively explained to the patient's sister that the patient's decompensated state and need for 24-hour care. Sister has been extensively explained about the patient's need for assistance with activities of daily living upon discharge as the patient's condition appears to be quite decompensated. Dictated and electronically signed, not read. Signing off Chance Law MD Chance Law MD
[2017-10-21] MEDS: BIMATOPROST BOTHEYES SCH ×2 (03:58→22:14)
[2017-10-21] MEDS: Pantoprazole 40 mg EC Tab PO SCH (06:05)
[2017-10-21 06:52] LABS: ALB/GLOB RATIO 1.4 (1.1-1.8); BILIRUBIN,TOTAL 0.8 mg/dL (0.2-1.3); CALCIUM 10.1 mg/dL (8.4-10.5); MAGNESIUM 1.9 mg/dL (1.7-2.2); POTASSIUM 4.1 mmol/L (3.6-5.0); TOTAL PROTEIN 6.7 g/dL (5.8-8.3)
[2017-10-21 06:59] LABS: T4 10.2 ug/dL (5.5-11.0)
[2017-10-21 07:13] LABS: THYROID STIMULATING HORMONE 0.43 mIU/mL (0.46-4.68)
[2017-10-21 07:36] LABS: BASO # 0.01 K/mm3 (0.0-2.0); BASO % 0.1 % (0.0-3.0); EOS # 0.1 (0.0-0.7); EOS % 1.7 % (1.5-5.0); GRAN # 5.45 (1.4-6.5); GRAN % 67.5 % (50.0-68.0); HEMATOCRIT 35.8 % (36.0-48.0); LYMPH # 1.6 (1.2-3.4); LYMPH % 19.5 % (22.0-35.0); MEAN CELL VOLUME 89.9 fl (80.0-105.0); MEAN CORPUSCULAR HEMOGLOBIN 29.9 pg (25.0-35.0); MEAN CORPUSCULAR HGB CONC 33.2 g/dl (31.0-37.0); MEAN PLATELET VOLUME 10.5 fl (7.0-11.0); MONO # 0.9 (0.1-0.6); MONO % 11.2 % (1.0-6.0); RED CELL DISTRIBUTION WIDTH 13.2 % (11.5-14.5); WHITE BLOOD COUNT 8.1 10^3/ul (4.5-11.0)
[2017-10-21] MEDS: cefTRIAXone 2 GM IN NS 2 GM/100 ML BAG IVPB SCH (10:04)
--- NOTE | 2017-10-21 10:31 | CP.PCM.PN ---
Subjective - Date & Time of Evaluation Date of Evaluation: 10/21/17 Time of Evaluation: 09:00 - Subjective Subjective: PGY-[address] Law Pt states that the puree food is better. No acute complained. tolearing PT Objective - Vital Signs/Intake and Output Vital Signs (last 24 hours): Temp Pulse Resp BP Pulse Ox 97.9 F 86 20 144/88 97 10/21/17 07:30 10/21/17 10:03 10/21/17 07:30 10/21/17 10:03 10/21/17 07:30 Intake and Output: 10/21/17 10/21/17 06:59 18:59 Intake Total 240 Balance 240 - Medications Medications: Current Medications Amlodipine Besylate (Norvasc) 10 mg PO DAILY [facility] Last Admin: 10/21/17 10:02 Dose: 10 mg Aspirin (Aspirin Chewable) 81 mg PO DAILY [facility] Last Admin: 10/21/17 09:59 Dose: 81 mg Atorvastatin Calcium (Lipitor) 10 mg PO DIN [facility] Clonidine HCl (Catapres) 0.1 mg PO BID [facility] Last Admin: 10/21/17 10:03 Dose: 0.1 mg Clopidogrel Bisulfate (Plavix) 75 mg PO DAILY [facility] Last Admin: 10/21/17 09:59 Dose: 75 mg Duloxetine HCl (Cymbalta) [address] [facility] Last Admin: 10/20/17 21:18 Dose: 30 mg Heparin Sodium (Porcine) (Heparin) 5,000 units SC Q12 [facility] PRN Reason: Protocol Last Admin: 10/21/17 09:59 Dose: 5,000 units Ceftriaxone Sodium (Rocephin 2 Gm Ivpb) 2 gm in 100 mls @ 100 mls/hr IVPB DAILY [facility] PRN Reason: Protocol Last Admin: 10/21/17 10:04 Dose: 100 mls/hr Ketorolac Tromethamine (Toradol) 15 mg IVP Q6H PRN PRN Reason: Pain, moderate (4-7) Last Admin: 10/21/17 02:30 Dose: 15 mg Metoclopramide HCl (Reglan) 5 mg IVP ACHS [facility] Last Admin: 10/21/17 10:00 Dose: 5 mg Bimatoprost [Lumigan (] 1 Drop (Home Med)) [address] [facility] Last Admin: 10/21/17 03:58 Dose: 1 drop Ondansetron HCl (Zofran Inj) 4 mg IVP Q4H PRN PRN Reason: Nausea/Vomiting Pantoprazole Sodium (Protonix Ec Tab) 40 mg PO 0600 [facility] Last Admin: 10/21/17 06:05 Dose: 40 mg Rivastigmine (Exelon 4.6 Mg/24 Hr Patch) 1 patch TD DAILY [facility] Last Admin: 10/21/17 10:00 Dose: 1 patch Tramadol HCl (Ultram) 100 mg PO TID [facility] Last Admin: 10/21/17 09:58 Dose: 100 mg - Labs Labs: 10/21/17 06:00 10/21/17 06:00 PT 11.9 SECONDS (9.4-12.5) 10/16/17 18:00 INR 1.09 (0.93-1.08) H 10/16/17 18:00 APTT 27.3 Seconds (25.1-36.5) 10/16/17 18:00 - Constitutional Appears: No Acute Distress - Head Exam Additional comments: Eccymosis and induration more subsided than yesterday. - Eye Exam Eye Exam: EOMI, Normal appearance, PERRL. absent: Scleral icterus Pupil Exam: NORMAL ACCOMODATION - ENT Exam ENT Exam: Mucous Membranes Moist - Neck Exam Additional comments: supple - Respiratory Exam Respiratory Exam: Clear to Ausculation Bilateral. absent: Rales, Rhonchi, Wheezes - Cardiovascular Exam Cardiovascular Exam: REGULAR RHYTHM, +S1, +S2 - GI/Abdominal Exam GI & Abdominal Exam: Soft, Normal Bowel Sounds. absent: Guarding, Rigid - Extremities Exam Extremities Exam: Normal Capillary Refill. absent: Calf Tenderness, Pedal Edema - Neurological Exam Neurological Exam: Alert, Awake, Oriented x3 Neuro motor strength exam: Left Upper Extremity: 5, Right Upper Extremity: 5, Left Lower Extremity: 4, Right Lower Extremity: 4 - Psychiatric Exam Psychiatric exam: Normal Affect, Normal Mood - Skin Skin Exam: Dry, Warm Assessment and Plan - Assessment and Plan (Free Text) Plan: Ms Partida, 77 y/o F, with PMH of HTN, b/l cataracts, CVA s/p Left ICA stent, and spastic mild right-sided weakness presents for mechanical fall. Pt sustained iriac crest fracture. Pt underwent Head, Maxillofacial, and Cervical CT scans which were all negative for acute fracture. Wrist and hip x-ray official reads pending at this time. Pt with extensive soft tissue swelling along right and left eye. Pt will be admitted for observation. L Iliac crest fracture, min displaced High fall risk Mechanical Fall L hip pain facial trauma Postraumatic hematoms and soft tissue edema - Tramadol standing 100 TID; Toradol for pain 15q6 iv - Cold compresses prn - CPK nl - No delay bleeding per MRI - goal BP 130-140 - Orthostatic VS - wt bear as tolerated per orthopedics; mobilize pt as tolerated - Continue PT/OT - No ENT or Ortho surgery needed UTI - ROcephin 2g (day 6) Will d/c after 7 day - Culture neg HTN - Hold thiazide - Start metoprolol 25 BID - Increase amlodipine to 10qd. 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 Discharge planning - building maintenance worker referral - [facility] vs TCU on 7th - Pt known to [facility]. Physical therapy recommended HWS vs TCU - Per Dr. Law endorsement: Archana, Sister, next-of-kin of pt, want to explore possibilty to have Pt moved to [place] so Archana can take care of pt PPX: Prot,nix. Heparin q12, AE hose, SCD FEN: Bedrest, HHD puree for loose denture, NS@100, glucerna BID Consult: ENT - Dr. Duarte, Dr. Das NEurol = Dr. Coates Ortho = Dr. Sharma Imaging: Hand xray: No acute fracture LE CT: L Oblique displaced comminuted fracture of anterior suproer iliac crest Head/brain Venograph: 8mm thrombosed aneywym L ICA, supraclinoid projecting anterior/superior, w/o flow. L ICA stent in cavernous segment is patent. Brain MRI: stable. no acute changes. 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 Repribital edema at preseptal. no post septal Cervical spine CT: No acute fracture CXR: R Upper lobe pleural thickening, L pleural calcification. b/l pleural plaques suggestive of asbestos EKG: Sinus brunilda 56. QTc 447 S/R/D/w Dr. Law
[2017-10-21 11:19] LABS: FREE T4 1.51 ng/dL (0.78-2.19)
--- NOTE | 2017-10-21 11:51 | CP.PCM.PN ---
Subjective - Date & Time of Evaluation Date of Evaluation: 10/21/17 Time of Evaluation: 11:49 - Subjective Subjective: Pt sleeping. Arousable. Pt ambulated with PT yesterday as per nurse. Recommend continued PT. Would recommend d/c to subacute rehab for gait training. F/u in 7-10 days for a repeat xray. Objective - Vital Signs/Intake and Output Vital Signs (last 24 hours): Temp Pulse Resp BP Pulse Ox 97.9 F 86 20 144/88 97 10/21/17 07:30 10/21/17 10:03 10/21/17 07:30 10/21/17 10:03 10/21/17 07:30 Intake and Output: 10/21/17 10/21/17 06:59 18:59 Intake Total 240 Balance 240 - Medications Medications: Current Medications Amlodipine Besylate (Norvasc) 10 mg PO DAILY [facility] Last Admin: 10/21/17 10:02 Dose: 10 mg Aspirin (Aspirin Chewable) 81 mg PO DAILY [facility] Last Admin: 10/21/17 09:59 Dose: 81 mg Atorvastatin Calcium (Lipitor) 10 mg PO DIN [facility] Clonidine HCl (Catapres) 0.1 mg PO BID [facility] Last Admin: 10/21/17 10:03 Dose: 0.1 mg Clopidogrel Bisulfate (Plavix) 75 mg PO DAILY [facility] Last Admin: 10/21/17 09:59 Dose: 75 mg Duloxetine HCl (Cymbalta) 30 mg PO HS [facility] Last Admin: 10/20/17 21:18 Dose: 30 mg Heparin Sodium (Porcine) (Heparin) 5,000 units SC Q12 [facility] PRN Reason: Protocol Last Admin: 10/21/17 09:59 Dose: 5,000 units Ceftriaxone Sodium (Rocephin 2 Gm Ivpb) 2 gm in 100 mls @ 100 mls/hr IVPB DAILY [facility] PRN Reason: Protocol Last Admin: 10/21/17 10:04 Dose: 100 mls/hr Ketorolac Tromethamine (Toradol) 15 mg IVP Q6H PRN PRN Reason: Pain, moderate (4-7) Last Admin: 10/21/17 02:30 Dose: 15 mg Metoclopramide HCl (Reglan) 5 mg IVP ACHS [facility] Last Admin: 10/21/17 10:00 Dose: 5 mg Bimatoprost [Lumigan (] 1 Drop (Home Med)) 1 drop BOTHEYES HS [facility] Last Admin: 10/21/17 03:58 Dose: 1 drop Ondansetron HCl (Zofran Inj) 4 mg IVP Q4H PRN PRN Reason: Nausea/Vomiting Pantoprazole Sodium (Protonix Ec Tab) 40 mg PO 0600 [facility] Last Admin: 10/21/17 06:05 Dose: 40 mg Rivastigmine (Exelon 4.6 Mg/24 Hr Patch) 1 patch TD DAILY [facility] Last Admin: 10/21/17 10:00 Dose: 1 patch Tramadol HCl (Ultram) 100 mg PO TID [facility] Last Admin: 10/21/17 09:58 Dose: 100 mg - Labs Labs: 10/21/17 06:00 10/21/17 06:00 PT 11.9 SECONDS (9.4-12.5) 10/16/17 18:00 INR 1.09 (0.93-1.08) H 10/16/17 18:00 APTT 27.3 Seconds (25.1-36.5) 10/16/17 18:00
[2017-10-21 13:26] LABS: FOLATE 10.1 ng/mL
[2017-10-21] MEDS: Lidocaine 5% Patch TD SCH (14:00)
[2017-10-22] MEDS: Pantoprazole 40 mg EC Tab PO SCH (06:00)
[2017-10-22 07:20] LABS: BASO # 0.02 K/mm3 (0.0-2.0); BASO % 0.3 % (0.0-3.0); EOS # 0.2 (0.0-0.7); EOS % 2.4 % (1.5-5.0); GRAN # 4.62 (1.4-6.5); GRAN % 64.4 % (50.0-68.0); LYMPH # 1.6 (1.2-3.4); MEAN CELL VOLUME 89.7 fl (80.0-105.0); MEAN CORPUSCULAR HGB CONC 33.4 g/dl (31.0-37.0); MEAN PLATELET VOLUME 10.3 fl (7.0-11.0); MONO # 0.8 (0.1-0.6); MONO % 10.9 % (1.0-6.0); RED CELL DISTRIBUTION WIDTH 13.2 % (11.5-14.5); WHITE BLOOD COUNT 7.2 10^3/ul (4.5-11.0)
[2017-10-22 08:34] LABS: ALB/GLOB RATIO 1.4 (1.1-1.8); BILIRUBIN,TOTAL 0.7 mg/dL (0.2-1.3); MAGNESIUM 1.9 mg/dL (1.7-2.2); POTASSIUM 4.4 mmol/L (3.6-5.0); TOTAL PROTEIN 6.9 g/dL (5.8-8.3)
[2017-10-22 09:20] VITALS: RESP 19; TEMP 98.4; O2SAT 100
[2017-10-22] MEDS: Lidocaine 5% Patch TD SCH (10:33)
[2017-10-22] MEDS: cefTRIAXone 2 GM IN NS 2 GM/100 ML BAG IVPB SCH (10:36)
[2017-10-22 10:49] VITALS: BP 114/72; PULSE 72
[2017-10-22] MEDS ORDERED: Hydrocerin(120 gm) TOP SCH ×2 (11:15)
--- NOTE | 2017-10-22 16:12 | CP.PCM.DIS ---
Provider - Provider Date of Admission: 10/19/17 11:31 Attending physician: Chance Law MD Primary care physician: Dr. Law Consults: ENT - Dr. Duarte, Dr. Das NEurol = Dr. Coates Ortho = Dr. Sharma Time Spent in preparation of Discharge (in minutes): 40 Diagnosis - Discharge Diagnosis (1) Fracture of left pelvis Status: Acute (2) Fall Status: Acute (3) Intractable vomiting Status: Resolved (4) Left hip pain Status: Acute (5) UTI (urinary tract infection) Status: Resolved Hospital Course - Lab Results Lab Results: Most Recent Lab Values WBC 7.2 10^3/ul (4.5-11.0) 10/22/17 06:30 RBC 3.90 10^6/uL (3.5-6.1) 10/22/17 06:30 Hgb 11.7 g/dL (12.0-16.0) L 10/22/17 06:30 Hct 35.0 % (36.0-48.0) L 10/22/17 06:30 MCV 89.7 fl (80.0-105.0) 10/22/17 06:30 MCH 30.0 pg (25.0-35.0) 10/22/17 06:30 MCHC 33.4 g/dl (31.0-37.0) 10/22/17 06:30 RDW 13.2 % (11.5-14.5) 10/22/17 06:30 Plt Count 193 10^3/uL (120.0-450.0) 10/22/17 06:30 MPV 10.3 fl (7.0-11.0) 10/22/17 06:30 Gran % 64.4 % (50.0-68.0) 10/22/17 06:30 Lymph % (Auto) 22.0 % (22.0-35.0) 10/22/17 06:30 Holmes % (Auto) 10.9 % (1.0-6.0) H 10/22/17 06:30 Eos % (Auto) 2.4 % (1.5-5.0) 10/22/17 06:30 Baso % (Auto) 0.3 % (0.0-3.0) 10/22/17 06:30 Gran # 4.62 (1.4-6.5) 10/22/17 06:30 Lymph # 1.6 (1.2-3.4) 10/22/17 06:30 Holmes # 0.8 (0.1-0.6) H 10/22/17 06:30 Eos # 0.2 (0.0-0.7) 10/22/17 06:30 Baso # 0.02 K/mm3 (0.0-2.0) 10/22/17 06:30 PT 11.9 SECONDS (9.4-12.5) 10/16/17 18:00 INR 1.09 (0.93-1.08) H 10/16/17 18:00 APTT 27.3 Seconds (25.1-36.5) 10/16/17 18:00 Sodium 138 mmol/L (132-148) 10/22/17 06:30 Potassium 4.4 mmol/L (3.6-5.0) 10/22/17 06:30 Chloride 100 mmol/L (98-107) 10/22/17 06:30 Carbon Dioxide 28 mmol/L (21-33) 10/22/17 06:30 Anion Gap 14 (10-20) 10/22/17 06:30 BUN 20 mg/dL (7-21) 10/22/17 06:30 Creatinine 1.2 mg/dl (0.7-1.2) 10/22/17 06:30 Est GFR ( Amer) 53 10/22/17 06:30 Est GFR (Non-Af Amer) 44 10/22/17 06:30 Random Glucose 97 mg/dL (70-110) 10/22/17 06:30 Calcium 10.0 mg/dL (8.4-10.5) 10/22/17 06:30 Magnesium 1.9 mg/dL (1.7-2.2) 10/22/17 06:30 Total Bilirubin 0.7 mg/dL (0.2-1.3) 10/22/17 06:30 Direct Bilirubin 0.3 mg/dL (0.0-0.4) 10/20/17 06:30 AST 30 U/L (14-36) 10/22/17 06:30 ALT 29 U/L (7-56) 10/22/17 06:30 Alkaline Phosphatase 54 U/L (38-126) 10/22/17 06:30 Total Creatine Kinase 92 U/L (35-230) 10/17/17 06:00 Troponin I < 0.01 ng/mL 10/16/17 18:00 Total Protein 6.9 g/dL (5.8-8.3) 10/22/17 06:30 Albumin 4.0 g/dL (3.0-4.8) 10/22/17 06:30 Globulin 2.9 gm/dL 10/22/17 06:30 Albumin/Globulin Ratio 1.4 (1.1-1.8) 10/22/17 06:30 Triglycerides 68 mg/dL (35-160) 10/21/17 06:00 Cholesterol 183 mg/dL (130-200) 10/21/17 06:00 LDL Cholesterol Direct 99 mg/dL (0-129) 10/21/17 06:00 HDL Cholesterol 66 mg/dL (29-60) H 10/21/17 06:00 Vitamin B12 928 pg/mL (239-931) 10/21/17 06:00 25-OH Vitamin D Total 47.8 NG/ML (30.0-100.0) 10/21/17 06:00 Folate 10.1 ng/mL 10/21/17 06:00 Free T4 1.51 ng/dL (0.78-2.19) 10/21/17 06:00 Thyroxine (T4) 10.2 ug/dL (5.5-11.0) 10/21/17 06:00 TSH 3rd Generation 0.43 mIU/mL (0.46-4.68) L 10/21/17 06:00 Urine Color Yellow (YELLOW) 10/16/17 20:50 Urine Appearance Clear (CLEAR) 10/16/17 20:50 Urine pH 8.0 (4.7-8.0) 10/16/17 20:50 Ur Specific [place] 1.010 (1.005-1.035) 10/16/17 20:50 Urine Protein Negative mg/dL (<30 mg/dL) 10/16/17 20:50 Urine Glucose (UA) Negative mg/dL (NEGATIVE) 10/16/17 20:50 Urine Ketones Trace mg/dL (NEGATIVE) H 10/16/17 20:50 Urine Blood Trace-intact (NEGATIVE) H 10/16/17 20:50 Urine Nitrate Negative (NEGATIVE) 10/16/17 20:50 Urine Bilirubin Negative (NEGATIVE) 10/16/17 20:50 Urine Urobilinogen 0.2 E.U./dL (<1 E.U./dL) 10/16/17 20:50 Ur Leukocyte Esterase Small Esteban/uL (NEGATIVE) H 10/16/17 20:50 Urine RBC 1 - 3 /hpf (0-2) 10/16/17 20:50 Urine WBC 2 - 5 /hpf (0-6) 10/16/17 20:50 Ur Epithelial Cells 1 - 3 /hpf (0-5) 10/16/17 20:50 Urine Bacteria Few (NEG) 10/16/17 20:50 Blood Type O POSITIVE 10/16/17 18:00 Blood Type Confirm O POSITIVE 10/16/17 18:59 Antibody Screen Negative 10/16/17 18:00 BBK History Checked No verified bt 10/16/17 18:00 - Hospital Course Hospital Course: Ms Partida, 77 y/o F, with PMH of HTN, b/l cataracts, CVA s/p Left ICA stent, and spastic mild right-sided weakness presents for mechanical fall. Pt sustained iliac crest fracture, minimally displaced. Pt underwent Head, Maxillofacial, and Cervical CT scans which were all negative for acute fracture. Wrist and hip x-ray official reads pending at this time. Pt with extensive soft tissue swelling along right and left eye which is improving. Patient is medically stable and will be discharged to TCU for continual rehabilitation for frailty. L Iliac crest fracture, min displaced High fall risk s/p Mechanical Fall L hip pain facial trauma Postraumatic hematoms and soft tissue edema - Tramadol standing 100 TID; Toradol for pain 15q6 iv - Cold compresses prn - CPK nl - No delay bleeding per MRI - goal BP 130-140 - Orthostatic VS - wt bear as tolerated per orthopedics; mobilize pt as tolerated - Continue PT/OT - No ENT or Ortho surgery needed UTI - resolved - ROcephin 2g d/c after 7 day - Culture neg HTN - Hold thiazide - metoprolol 25 BID, amlodipine to 10qd, clonidine 0.1 bid Hx of left ICA stent - Continue ASA and plavix for stroke prevention - Continue lipitor - avoid sedating meds to prevent deterioration of mental status Deconditioning and Frailty - decline ensure offered - Rehab - termite exterminator care planning B/l cataracts - Continue home drops, lumigan Intractable nausea and vomiting - resolved - Zofran prn cymbalta (duloxetine), rivastigmine patch stable 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 Discharge planning - market research worker referral - TCU - Pt known to [facility]. Physical therapy recommended HWS vs TCU - Per Dr. Law endorsement: Archana, Sister, next-of-kin of pt, want to explore possibilty to have Pt moved to [place] so Archana can take care of pt PPX: Prot,nix. Heparin q12, AE hose, SCD FEN: Bedrest, HHD puree for loose denture, NS@100, glucerna BID Consult: ENT - Dr. Duarte, Dr. Das NEurol = Dr. Coates Ortho = Dr. Sharma Imaging: Hand xray: No acute fracture LE CT: L Oblique displaced comminuted fracture of anterior suproer iliac crest Head/brain Venograph: 8mm thrombosed aneywym L ICA, supraclinoid projecting anterior/superior, w/o flow. L ICA stent in cavernous segment is patent. Brain MRI: stable. no acute changes. 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 Repribital edema at preseptal. no post septal Cervical spine CT: No acute fracture CXR: R Upper lobe pleural thickening, L pleural calcification. b/l pleural plaques suggestive of asbestos EKG: Sinus brunilda 56. QTc 447 S/R/D/w Dr. Law Discharge Exam - Head Exam Head Exam: NORMAL INSPECTION, NORMOCEPHALIC Additional comments: Eccymosis and induration more subsided than yesterday. - Eye Exam Eye Exam: EOMI, Normal appearance, PERRL. absent: Scleral icterus Pupil Exam: NORMAL ACCOMODATION - ENT Exam ENT Exam: Mucous Membranes Moist - Neck Exam Additional comments: supple - Respiratory Exam Respiratory Exam: NORMAL BREATHING PATTERN. absent: Rales, Rhonchi, Wheezes - Cardiovascular Exam Cardiovascular Exam: REGULAR RHYTHM, +S1, +S2 - GI/Abdominal Exam GI & Abdominal Exam: Normal Bowel Sounds, Soft. absent: Distended, Firm, Rigid - Extremities Exam Extremities exam: pedal pulses present Additional comments: no calf tenderness b/l - Back Exam Back exam: absent: CVA tenderness (L), CVA tenderness (R) - Neurological Exam Neurological exam: Alert, Oriented x3 - Psychiatric Exam Psychiatric exam: Normal Affect, Normal Mood - Skin Skin Exam: Dry, Warm Discharge Plan - Follow Up Plan Condition: STABLE Disposition: REHAB FACILITY/REHAB UNIT Instructions: Pneumococcal Vaccine for Adults (DC), Chronic Pain (DC), Influenza Vaccine (DC), Fall Prevention (DC) Additional Instructions: DISCHARGE TO TCU. DISCHARGE MEDS PER UPDATED AMBULATORY ORDERS Referrals: Chance Law MD [Staff Provider] - (DISCHARGE TO TCU IF ACCEPTED OR DISCHARGE TO [facility] DISCHARGE MEDS PER UPDATED AMBULATORY ORDERS )
--- NOTE | 2017-10-24 00:04 | DS ---
FINAL PROGRESS NOTE/DISCHARGE SUMMARY The patient was seen and accepted. The patient was accepted to TCU. The patient was not interested in subacute rehab. The patient was declined by acute rehab. The patient has preferred to go to transitional care unit. The patient and the sister also did not want to pursue skilled nursing long-term placement. The patient also declined subacute rehab, but agreed to TCU and accepted to TCU. PHYSICAL EXAMINATION: VITAL SIGNS: T-max 98.4; pulse 72 to 87 to 73; blood pressure 145/85, 132/86, 114/72; respiration 19, and O2 saturation 100%. GENERAL: The patient is seen lying in the bed in room 569, bed 2. HEENT: Examination shows positive right supraorbital, right periorbital, right infraorbital, left infraorbital hematoma, bruising, contusion, which is now becoming dark bluish. [place] conjunctivae. No conjunctival hemorrhage noted. NECK: No neck rigidity. CHEST: Examination symmetrical. LUNGS: Examination shows no rales, crackles or wheezing. CARDIOVASCULAR: Examination shows S1 and S2. ABDOMEN: Soft, nontender. GENITALIA: Female. RECTAL: Examination is deferred. EXTREMITY: Shows no pitting edema. No calf tenderness. No Homans sign. NEUROLOGIC: Neurologically, the patient is alert, awake, responsive. She is able to move upper and lower extremity without assistance. Gait examination is not tested. VASCULAR: Examination palpable pulses. DIAGNOSTICS: On 10/22, WBC 7.2, hemoglobin/hematocrit 11.7/35, platelet 193. Sodium 138, potassium 4.4, chloride 100, CO2 of 28, anion gap 14, BUN 20, creatinine 1.2, GFR of 53, glucose 97, calcium 10.0, magnesium 1.9. LFTs are normal. Vitamin D 25-hydroxy 48, B12 of 928, cholesterol 183, LDL 99, HDL 66. Urine cultures negative. Blood type O positive. The patient is seen by Orthopedics, their recommendation is physical therapy. FINAL IMPRESSION, PLAN, AND DISCHARGE DIAGNOSES: 1. Status post mechanical fall. 2. Left pelvic, left iliac crest fracture. 3. Intractable vomiting (resolved). 4. Left hip pain. 5. Facial supraorbital, periorbital and infraorbital contusion, hematoma, and cellulitis (resolving). 6. Left iliac crest fracture with minimal displacement. 7. Gait dysfunction. 8. Hypertension. 9. History of cerebral aneurysm, status post left internal carotid artery stenting. 10. Deconditioning. 11. . 12. Mild oral dysphagia. 13. Leukocytosis with granulocytosis. 14. Mild normocytic anemia. 15. Ketonuria, microscopic hematuria, pyuria, bacteriuria. 16. O positive blood type. 17. Left iliac crest oblique minimally displaced comminuted fracture of the anterior superior left iliac crest. 18. Osseous demineralization. 19. Degenerative joint disease. 20. Ketonuria. 21. Status post fall. 22. Patent stent of the cavernous segment of the left internal carotid artery with mild diffuse narrowing in the region of the stent. 23. 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 24. Chronic microvascular ischemic disease of the brain with bilateral frontoparietal and periatrial white matter chronic ischemia. 25. Bilateral basal ganglia, chronic ischemic changes versus lacunar infarction. 26. Cerebral cortical atrophy of the brain. 27. [place] chronic ischemic changes. 28. Ventriculomegaly. 29. Right frontal scalp extensive scalp hematoma. 30. Supraclinoid left internal carotid artery 8 mm rounded thrombosed aneurysm with peripheral calcification. 31. Diffuse age-related cerebral cortical atrophy of the brain. 32. Right upper lobe pleural thickening and suspected left-sided pleural calcification with numerous calcified pleural plaques bilaterally. 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 34. Degenerative joint disease of the cervical spine with osteophyte formation, disc space narrowing, endplate changes, and facet arthropathy with thickening of the transverse ligament with synovial hypertrophy. 35. Large right frontal scalp hematoma with edema with moderate bilateral preseptal periorbital soft tissue hematoma without post-septal involvement of the orbits bilaterally. 36. Osseous demineralization of the left hip. 37. Osseous demineralization of the left hand with degenerative joint disease of the left hand and joint space narrowing, especially in the carpometacarpal joint space. 38. Left hand soft tissue swelling. 39. 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 PLAN: At this time, the patient is accepted and will be transferred to Transitional Care Unit. The patient and the patient's sister declined subacute rehab and skilled nursing placement. DISCHARGE MEDICATIONS: 1. Aspirin 81 mg daily. 2. [place] eye drops to both eyes h.s. 3. Clonidine 0.1 mg twice a day. 4. Cymbalta 30 mg h.s. 5. Exelon patch 4.6 mg daily. 6. Heparin 5000 subcutaneous q.12. 7. Hydrocerin cream. 8. Lidoderm 5% patch to the affected area daily. 9. Lipitor 10 mg daily. 10. Lopressor 25 mg twice a day. 11. Norvasc 10 mg daily. 12. Lopressor 25 mg twice a day. 13. Plavix 75 mg daily. 14. Protonix 40 mg daily. 15. The patient's Rocephin will be discontinued, Toradol will be discontinued. 16. The patient is on tramadol 100 mg three times a day. 17. Tylenol 650. 18. The patient is on Zofran 4 IV q. four p.r.n. At present, the patient will be discharged to subacute rehab under Dr. Law's service. Time spent in the entire discharge process more than 35 minutes. Dictated and electronically signed, not read. Chance Law MD
== END 2017-10-22 14:02 | DRG 536 ==
LOC: ED 17:18 → ERH 22:22 → 5RNO 10-17 00:04 → OBSVTOIN 10-19 11:31 → 5RNO 10-20 09:59
PROVIDERS: ADMIT Internal Medicine; ATTEND Internal Medicine
DX: S32.302A Unspecified fracture of left ilium, initial encounter for closed fracture (principal); N17.9 Acute kidney failure, unspecified; E87.3 Alkalosis; N39.0 Urinary tract infection, site not specified; L03.211 Cellulitis of face; Z68.1 Body mass index [BMI] 19.9 or less, adult; S00.03XA Contusion of scalp, initial encounter; G62.9 Polyneuropathy, unspecified; I65.22 Occlusion and stenosis of left carotid artery; D64.9 Anemia, unspecified; F03.90 Unspecified dementia, unspecified severity, without behavioral disturbance, psychotic disturbance, mood disturbance, and anxiety; E87.6 Hypokalemia; I11.9 Hypertensive heart disease without heart failure; H26.9 Unspecified cataract; H40.9 Unspecified glaucoma; R73.9 Hyperglycemia, unspecified; S00.12XA Contusion of left eyelid and periocular area, initial encounter; R31.29 Other microscopic hematuria; M19.042 Primary osteoarthritis, left hand; M47.812 Spondylosis without myelopathy or radiculopathy, cervical region; I77.819 Aortic ectasia, unspecified site; R11.2 Nausea with vomiting, unspecified; R26.2 Difficulty in walking, not elsewhere classified; K59.00 Constipation, unspecified; R13.11 Dysphagia, oral phase; R54 Age-related physical debility; W10.1XXA Fall (on)(from) sidewalk curb, initial encounter; Y92.480 Sidewalk as the place of occurrence of the external cause; Z91.040 Latex allergy status; Z86.73 Personal history of transient ischemic attack (TIA), and cerebral infarction without residual deficits; Z87.891 Personal history of nicotine dependence

== ENCOUNTER 2017-10-22 14:02 | Inpatient (IN) | payer OTHER, MEDICARE ==
[2017-10-22 17:00] VITALS: BMI 16.5
[2017-10-22] MEDS ORDERED: Pneumococcal 23-Valent Vaccine IM ONE (17:00)
[2017-10-22] MEDS ORDERED: Influenza Vaccine 60 mcg/0.5 mL SYR (4YR UP) IM ONE (17:00)
[2017-10-22] MEDS: Latanoprost 2.5 ml Opht Soln OU SCH (21:51)
[2017-10-22] MEDS ORDERED: Home Med 1 UNIT OU SCH (22:00)
[2017-10-23] MEDS ORDERED: Morphine 2 mg/ml ISec IVP STA (02:58)
[2017-10-23] MEDS: Pantoprazole 40 mg EC Tab PO SCH (06:51)
[2017-10-23] MEDS ORDERED: Lidocaine 5% Patch TD SCH (10:00)
[2017-10-23] MEDS ORDERED: Oxycodone/Acetaminophen 2.5/325 mg Tab PO PRN (11:36)
--- NOTE | 2017-10-23 14:06 | US ---
PROCEDURE: Left lower extremity venous US HISTORY: Leg pain and swelling. Evaluate for DVT. PHYSICIAN(S): Luis Gamble MD. TECHNIQUE: Duplex sonography and color-flow Doppler with graded compression were used to evaluate the deep venous system of the left lower extremity. FINDINGS: The visualized deep venous system of the left lower extremity is sonographically normal and compressible. Normal wave forms and augmentation are seen. There is no sonographic evidence for deep venous thrombosis in the visualized segments of the left lower extremity. IMPRESSION: 1. No sonographic evidence for deep venous thrombosis in the visualized segments of the left lower extremity.
--- NOTE | 2017-10-23 15:50 | CP.PCM.CON ---
History of Present Illness - History of Present Illness History of Present Illness: PGY-2 Neurology consult note for Dr. Coates's service 77 yo Female with PMH of HTN, bilateral cataracts, CVA s/p Left ICA stent, and aneurysm presents to hospital for mechanical fall and was transferred to TCU fro further physical therapy. Patient states her fall was mechanical due in part to her very poor depth perception due to her cataracts. She tripped on the sidewalk and fell straight onto her face, she experienced no lose of consciousness nor dizziness. Patient had multiple areas of swelling on her face. She had CT head and MRI which did not show new infarct or bleeding. Patient denies headache, dizziness, lightheadedness, changes in vision, chest pain, SOB, diarrhea, constipation, syncope, fever, chills, numbness, tingling. PMH: HTN, b/l cataracts, CVA s/p Left ICA stent, aneurysm PSH: Left ICA stent Social history: Denies alcohol, tobacco, or illicit drug use Medications: As per MAR Allergies: Erythromycin, Iodine, Latex Review of Systems - Review of Systems All systems: reviewed and no additional remarkable complaints except (as stated in HPI) Past Patient History - Infectious Disease Hx of Infectious Diseases: None - Past Social History Smoking Status: Former Smoker - CARDIAC Hx Hypertension: Yes - PULMONARY Hx Respiratory Disorders: No - NEUROLOGICAL HX Cerebrovascular Accident: Yes (S/P Hx L ICA stent) - HEENT Hx HEENT Problems: Yes Hx Cataracts: Yes - RENAL Hx Chronic Kidney Disease: No - ENDOCRINE/METABOLIC Hx Endocrine Disorders: No - HEMATOLOGICAL/ONCOLOGICAL Hx Blood Disorders: No - INTEGUMENTARY Hx Dermatological Problems: No - MUSCULOSKELETAL/RHEUMATOLOGICAL Hx Falls: Yes (recent) - GASTROINTESTINAL Hx Gastrointestinal Disorders: No - GENITOURINARY/GYNECOLOGICAL Hx Reproductive Disorders: No - PSYCHIATRIC Hx Psychophysiologic Disorder: No - SURGICAL HISTORY Hx Surgeries: Yes Other/Comment: aneurysm repair - ANESTHESIA Hx Anesthesia: Yes Hx Anesthesia Reactions: No Hx Malignant Hyperthermia: No Meds Allergies/Adverse Reactions: Allergies Allergy/AdvReac Type Severity Reaction Status Date / Time erythromycin base Allergy SWELLING Verified 10/16/17 17:25 iodine Allergy SWELLING Verified 10/16/17 17:25 latex Allergy RASH Verified 10/16/17 17:25 - Medications Medications: Current Medications Amlodipine Besylate (Norvasc) 10 mg PO DAILY [facility] PRN Reason: Protocol Aspirin (Aspirin Chewable) 81 mg PO 0800 [facility] PRN Reason: Protocol Last Admin: 10/23/17 10:29 Dose: 81 mg Atorvastatin Calcium (Lipitor) 10 mg PO DIN [facility] PRN Reason: Protocol Last Admin: 10/22/17 17:26 Dose: 10 mg Clonidine HCl (Catapres) 0.1 mg PO BID [facility] PRN Reason: Protocol Last Admin: 10/23/17 10:29 Dose: 0.1 mg Clopidogrel Bisulfate (Plavix) 75 mg PO 0800 [facility] PRN Reason: Protocol Last Admin: 10/23/17 10:29 Dose: 75 mg Duloxetine HCl (Cymbalta) 30 mg PO HS [facility] PRN Reason: Protocol Last Admin: 10/22/17 21:50 Dose: 30 mg Heparin Sodium (Porcine) (Heparin) 5,000 units SC Q12 [facility] PRN Reason: Protocol Last Admin: 10/23/17 10:29 Dose: 5,000 units Ketorolac Tromethamine (Toradol) 15 mg IVP Q8H PRN PRN Reason: Pain, severe (8-10) Latanoprost (Xalatan Opht) 0 ml OU HS [facility] PRN Reason: Protocol Last Admin: 10/22/17 21:51 Dose: 2.5 ml Lidocaine (Lidoderm) 1 ea TD DAILY [facility] PRN Reason: Protocol Metoprolol Tartrate (Lopressor) 25 mg PO 0800,1800 [facility] PRN Reason: Protocol Last Admin: 10/23/17 10:29 Dose: 25 mg Mupirocin (Bactroban Ointment) 0 gm TOP TID [facility] Last Admin: 10/23/17 14:38 Dose: 1 appl Ondansetron HCl (Zofran Inj) 4 mg IVP Q4H PRN; Protocol PRN Reason: Nausea/Vomiting Pantoprazole Sodium (Protonix Ec Tab) 40 mg PO 0600 [facility] PRN Reason: Protocol Last Admin: 10/23/17 06:51 Dose: 40 mg Rivastigmine (Exelon 4.6 Mg/24 Hr Patch) 1 patch TD DAILY [facility] PRN Reason: Protocol Last Admin: 10/23/17 10:28 Dose: 1 patch Tramadol HCl (Ultram) 100 mg PO TID [facility] PRN Reason: Protocol Last Admin: 10/23/17 14:39 Dose: 100 mg Physical Exam - Constitutional Appears: Well, No Acute Distress - Head Exam Head Exam: ATRAUMATIC, NORMAL INSPECTION, NORMOCEPHALIC - Eye Exam Eye Exam: EOMI, Normal appearance - ENT Exam ENT Exam: Mucous Membranes Moist - Respiratory Exam Respiratory Exam: NORMAL BREATHING PATTERN. absent: Respiratory Distress - Cardiovascular Exam Cardiovascular Exam: REGULAR RHYTHM - Extremities Exam Extremities exam: Positive for: normal inspection - Neurological Exam Neurological exam: Alert, CN II-XII Intact, Oriented x3, Reflexes Normal - Expanded Neurological Exam Expanded Neuro motor strength exam: Left Upper Extremity: 5, Right Upper Extremity: 5, Left Lower Extremity: 5, Right Lower Extremity: 5 - Skin Skin Exam: Dry, Intact, Normal Color, Warm Additional comments: multiple hematoma on her face, healing well Results - Vital Signs Recent Vital Signs: Last Vital Signs Temp 98.1 F 10/23/17 11:19 Pulse 79 10/23/17 11:19 Resp 18 10/23/17 11:19 BP 122/82 10/23/17 11:19 Pulse Ox 97 10/23/17 11:19 Assessment & Plan - Assessment and Plan (Free Text) Assessment: 77 yo female with PMH of HTN. bilateral cataracts, CVA, s/p left ICA stent and spastic mild right-sided weakness associated with right upper extremity presented with mechanical fall after tripping on sidewalk. 1. mechanical fall - CT head from hospital admission showed no acute fractures or bleeding - MRI from hospital admission showed only chronic mircovascular changes, scalp hematoma, 8mm aneurysm - aneurysm is known to patient, will be monitored out patient - maintain systolic BP between 130-140 - continue asa 81, Lipitor 10mg, and plavix 75mg - avoid sedating medications to prevent deterioration of mental status - monitor electrolytes correct as needed - continue PT/OT Thank you for the consult, please reconsult if needed case reviewed and discussed with attending
[2017-10-23] MEDS: Latanoprost 2.5 ml Opht Soln OU SCH (21:47)
--- NOTE | 2017-10-24 01:17 | HP ---
[facility] [address] [place] [address] Health Information Management History and Physical Report : [id number] Draft Patient: KASEY MCCAIN Unit: [id number] : 1940 Age/Sex: 77 / F ADM Status: ADM IN Copied To: Copied To Cosigner: Attending MD: Chance Law MD HISTORY OF PRESENT ILLNESS: The patient is a 77-year-old female presented to the [facility] Emergency Room as an ambulatory walk-in. The patient came to the ER after a fall as per the family. The patient stated that she was walking and about to cross the street when she got out of balance and fell and hit her face and complaining of facial pain and left hip pain. The patient was seen by the physician marketing assistant retail division. The patient fell crossing the street and fell forward, hitting her face, denies loss of consciousness. The patient immediately noticed swelling of the right side of the forehead, left cheek. The patient also complained of left hand and left hip pain. REVIEW OF SYSTEMS: A 13-system review was done, pertinent positive and negative dictated above. CODE STATUS: Full code. LIVING WILL ADVANCE DIRECTIVE: None. ALLERGIES: ERYTHROMYCIN, IODINE, LATEX. Height is 5 feet 4 inches. BMI is 18. HOME MEDICATIONS: Lumigan eyedrops h.s., Exelon patch 4.6 mg, Ultram 100 mg three times a day, Cymbalta 30 mg h.s., hydrochlorothiazide or chlorthalidone 25 mg daily, clonidine 0.1 mg p.r.n., Norvasc 5 mg daily, Bystolic 10 mg or 5 mg daily, Plavix 75 mg daily, and Ecotrin 81 mg daily. SOCIAL HISTORY: Positive former smoker. Denies alcohol. Denies substance abuse. Denies drug use. MENSTRUAL HISTORY: Postmenopausal. FAMILY HISTORY: Not available. OCCUPATIONAL HISTORY: Not available. PAST MEDICAL AND SURGICAL HISTORY: History of glaucoma, history of dementia, history of pain syndrome. The patient's past medical history is significant for hypertension, history of cataracts, history of back pain and herniated disc, history of cerebrovascular accident with left carotid stenosis and left internal carotid artery stenting. The patient was seen in the emergency room by the ER physician and the physician's marketing assistant retail division. The patient was found to be having difficulty walking with increasing pain and persistent nausea. The patient was seen and examined. PHYSICAL EXAMINATION: VITAL SIGNS: T-max 98.3; heart rate 65, 72, 74; blood pressure was 159/119, repeat blood pressure 162/85 and 151/84; respirations 20; and O2 sat was 98%. HEENT: The patient's head examination shows positive swelling of the right supraorbital area, right periorbital area. Positive swelling of the right and left eyelid. Positive periorbital hematoma bilaterally. Positive right supraorbital hematoma. Positive facial contusions and discoloration noted. NECK: The patient has pain on movement of the neck. CARDIOVASCULAR: S1, S2, regular rhythm. ABDOMEN: Soft. Positive bowel sound. GENITALIA: Female. RECTAL: Deferred. EXTREMITIES: The patient is able to move upper and lower extremity without assistance. Gait examination could not be tested. The patient has pain on the left hip and left lower extremity area. NEUROLOGIC: The patient is neurologically awake, responsive, alert. Able to move upper extremity. Gait examination could not be tested. DIAGNOSTIC STUDIES: The patient was seen and evaluated in the emergency room by the ER physician and the physician marketing assistant retail division. The patient underwent CT head, x-ray of the hand, hip and pelvic x-ray, maxillofacial CT, EKG, cervical spine CT was done and CT of the left hip was ordered. The patient was treated in the emergency room by the ER physician and the physician marketing assistant retail division with Zofran 8 mg, tramadol 50, Reglan 10 mg. The patient was given morphine 4 mg x1 dose and 2 mg x2 doses. The patient was given potassium supplementation. The patient was given Tylenol and the patient was advised to be admitted. The patient's diagnostic data including lab data, imaging reports which is preliminary available reviewed. IMPRESSION AND PLAN: 1. Status post mechanical fall. 2. Facial contusion and trauma with bilateral periorbital and supraorbital hematoma and contusion. 3. Questionable urinary tract infection. 4. Intractable nausea and vomiting. 5. Gait dysfunction. 6. History of left carotid stenosis with status post left internal carotid artery stenting. 7. History of cataract. 8. Hypertension. 9. Granulocytosis. 10. Questionable facial cellulitis secondary to fall, contusion. 11. Hypokalemia. 12. Metabolic alkalosis. 13. Hyperglycemia. 14. Slight transaminitis. 15. Microscopic hematuria, pyuria, bacteria, questionable urinary tract infection. 16. Status post fall. 17. 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 18. Degenerative joint disease of the cervical spine without any acute fracture. 19. Right upper lobe pleural thickening and suspected left-sided pleural calcification with numerous calcified pleural plaques bilaterally suggestive of asbestos-related pleural disease. 20. Ectatic aorta. 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 22. Left anterior hemiblock. 23. Hypertensive cardiovascular disease. 24. History of cerebrovascular accident. 25. Questionable mild right upper extremity spastic weakness from prior cerebrovascular accident. 26. Extensive facial soft tissue swelling versus questionable cellulitis. 27. History of dementia, history of hypertension. 28. Oblique mildly displaced comminuted fracture of the left anterior superior iliac crest. 29. Degenerative joint disease. Plan at this time, the patient has been admitted. The patient has been put on bedrest. Serial labs ordered. Urine cultures ordered. Orthopedics consultation, Neurology consultation, and [id number] consultation ordered. The patient is on aspirin 81 mg p.o. daily, Lumigan eye drop. The patient is started on clonidine twice a day, Cymbalta 30 mg h.s., Exelon patch 4.6 mg daily. The patient is started on DVT prophylaxis with heparin 5000 subcu q.12. The patient's potassium was supplemented. The patient is resumed on Norvasc 5 mg daily, Plavix 75 mg daily. The patient's potassium was supplemented. The patient is on Protonix 40 daily, Reglan 5 mg IV a.c. and h.s., Rocephin 2 g IV daily. The patient is started on IV fluid 0.9 at 100 mL an hour. The patient is started on Toradol 15 mg IV q.6 p.r.n., Ultram 100 mg three times a day as resume, Zofran 4 mg IV q.4 p.r.n. as ordered. MRI and MRA of the brain ordered. We are still awaiting for the CT head and maxillofacial CT result. The patient is ordered heart healthy diet. The patient was placed on bedrest. SCDs and ANNA stockings ordered. At present, the patient is awaiting for further input and recommendation from all the subspecialty. The patient's further management will be dependent upon the patient's clinical condition, hemodynamic status and as per the patient response to therapeutic intervention, as per the patient's diagnostic test results and as per recommendation by all the physician involved in the care of the patient. DATE OF ADMISSION: 10/23/2017 SUBJECTIVE: The patient is seen in room 303, bed 1. The patient is sitting out of bed to chair. The patient is seen with the physical therapist. The patient is complaining of joint pain, back pain, knee pain, arm pain. The patient is also complaining of left elbow area swelling and bruising and abrasion, which was examined. Overnight nurse's notes were reviewed. The patient was also seen with the patient's nurse, Radha Green. REVIEW OF SYMPTOMS: A 13-system review was done, pertinent positive and negative dictated above. PHYSICAL EXAMINATION: VITAL SIGNS: T-max 98.4; pulse 68, 82, 79; blood pressure 122/82, 131/74, 121/68, 109/63; respirations 18; O2 saturation 97% to 100%. HEENT: Examination shows positive hematoma of the right supraorbital area which is decreasing, positive periorbital ecchymosis and contusion, positive left infraorbital hematoma and contusion. Positive bruising of different areas of the face noted. NECK: No neck rigidity. CHEST: Kyphosis. LUNGS: Examination shows no rales, crackles, or wheezing. Occasional rhonchi, anterior upper lung field. CARDIOVASCULAR: S1 and S2, regular rhythm. ABDOMEN: Soft. Positive bowel sounds. GENITALIA: Female. RECTAL: Deferred. EXTREMITIES: Show positive bruising of the left upper extremity elbow area with a small lump noted, which was nontender and mobile. Motor strength, the patient is able to stand up with assistance of my hand. The patient is seen with the physical therapist. MUSCULOSKELETAL: Shows a body mass index of 16.5. NEUROLOGIC: The patient is alert, awake, oriented x3. PSYCHIATRIC: Negative. DIAGNOSTICS: None from today. IMPRESSION: 1. Gait dysfunction. 2. Deconditioning. 3. Acute pain syndrome secondary to mechanical fall. 4. History of narcotic abuse and dependence, status post drug rehabilitation and detoxification. 5. Left elbow area bruising, contusion, and questionable small hematoma versus cellulitis. 6. Status post mechanical fall. 7. Multiple facial contusions. 8. Hematoma. 9. Right supraorbital, right periorbital hematoma. 10. Left infraorbital and supraorbital hematoma. 11. Right frontal hematoma and contusion and scalp swelling. 12. Hypertension. 13. Dyslipidemia. 14. Neuropathic pain syndrome. 15. Intractable nausea and vomiting (resolved). 16. Dementia. 17. Glaucoma. 1. Status post mechanical fall. 2. Left pelvic, left iliac crest fracture. 3. Intractable vomiting (resolved). 4. Left hip pain. 5. Facial supraorbital, periorbital and infraorbital contusion, hematoma, and cellulitis (resolving). 6. Left iliac crest fracture with minimal displacement. 7. Gait dysfunction. 8. Hypertension. 9. History of cerebral aneurysm, status post left internal carotid artery stenting. 10. Deconditioning. 11. . 12. Mild oral dysphagia. 13. Leukocytosis with granulocytosis. 14. Mild normocytic anemia. 15. Ketonuria, microscopic hematuria, pyuria, bacteriuria. 16. O positive blood type. 17. Left iliac crest oblique minimally displaced comminuted fracture of the anterior superior left iliac crest. 18. Osseous demineralization. 19. Degenerative joint disease. 20. Ketonuria. 21. Status post fall. 22. Patent stent of the cavernous segment of the left internal carotid artery with mild diffuse narrowing in the region of the stent. 23. 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 24. Chronic microvascular ischemic disease of the brain with bilateral frontoparietal and periatrial white matter chronic ischemia. 25. Bilateral basal ganglia, chronic ischemic changes versus lacunar infarction. 26. Cerebral cortical atrophy of the brain. 27. Pontine chronic ischemic changes. 28. Ventriculomegaly. 29. Right frontal scalp extensive scalp hematoma. 30. Supraclinoid left internal carotid artery 8 mm rounded thrombosed aneurysm with peripheral calcification. 31. Diffuse age-related cerebral cortical atrophy of the brain. 32. Right upper lobe pleural thickening and suspected left-sided pleural calcification with numerous calcified pleural plaques bilaterally. 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 34. Degenerative joint disease of the cervical spine with osteophyte formation, disc space narrowing, endplate changes, and facet arthropathy with thickening of the transverse ligament with synovial hypertrophy. 35. Large right frontal scalp hematoma with edema with moderate bilateral preseptal periorbital soft tissue hematoma without post-septal involvement of the orbits bilaterally. 36. Osseous demineralization of the left hip. 37. Osseous demineralization of the left hand with degenerative joint disease of the left hand and joint space narrowing, especially in the carpometacarpal joint space. 38. Left hand soft tissue swelling. 39. 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 1. Status post mechanical fall. 2. Multiple facial supraorbital, periorbital, infraorbital contusion, hematoma and cellulitis secondary to fall. 3. Hypertension. 4. Normocytic anemia. 5. Granulocytosis. 6. Mild metabolic alkalosis. 7. Hypokalemia. 8. Deconditioning. 9. Gait dysfunction. 10. History of cerebrovascular accident. 11. Glaucoma and cataract. 12. Neuropathy. 13. Questionable dementia. 14. History of cerebral infarct. 15. Facial cellulitis and contusion. 16. Status post intractable nausea resolved. 17. Ketonuria, microscopic hematuria, pyuria, and bacteriuria with negative urine culture. 18. O positive blood type. 19. Mild oral dysphagia with low risk for aspiration secondary to missing teeth, minimal fatigue and slow oral transit and oral residue. 20. Questionable feeding dysfunction. 1. Status post mechanical fall. 2. Multiple facial, supraorbital, periorbital, infraorbital contusions and hematoma and cellulitis secondary to fall. 3. History of cerebrovascular accident status post left internal carotid artery stenting. 4. Mild spastic right upper extremity weakness. 5. Hypertension. 6. Leukocytosis with granulocytosis. 7. Normocytic anemia. 8. Mild transaminitis. 9. Hypokalemia. 10. Ketonuria, hematuria, pyuria, bacteriuria. 11. O+ blood type. 12. Oblique, mildly displaced comminuted fracture of the anterior superior left iliac crest. 13. Degenerative joint disease. 14. Patent stent in the cavernous segment of the left internal carotid artery. 15. Diffuse narrowing in the region of the stent. 16. 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 17. Left internal carotid artery cavernous segment patent stent. 18. Mild diffuse narrowing within the region of the left internal carotid artery cavernous segment stent. 19. Stable 8-mm thrombosed aneurysm arising from supraclinoid left internal carotid artery and projecting anteriorly, superiorly with no flow in the aneurysm. 20. Chronic microvascular ischemic disease of the brain. 21. Multiple chronic ischemic disease of the brain of bilateral frontoparietal and periatrial white matter chronic ischemic disease and lacunar infarcts of the bilateral basal ganglia. 22. Diffuse cerebral cortical atrophy. 23. Chronic pontine ischemic changes. 24. Ventriculomegaly. 25. Right frontal hematoma. 26. Stable 8-mm thrombosed aneurysm with peripheral calcification arousing from the supraclinoid left internal carotid artery. 27. Right upper lobe pleural thickening and suspected left-sided pleural calcification. 28. 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 29. Ectatic aortic . 30. Degenerative joint disease with osteophyte formation and disc space narrowing and facet arthropathy of the cervical spine and thickening of the transverse ligament and synovial hypertrophy of the cervical spine. 31. Large right frontal scalp hematoma with edema and hematoma with [id number] severity of the bilateral preseptal periorbital soft tissue without post-septal involvement. 32. Posttraumatic hematoma and soft tissue edema of the bilateral periorbital and right frontal soft tissue region without underlying fracture and preseptal periorbital edema and hematoma without obvious post-septal involvement bilaterally. 33. Gait dysfunction. 34. Deconditioning. 35. Osseous demineralization of the hips. 36. Left hand soft tissue swelling and osseous demineralization and degenerative joint disease. 37. Left axis deviation and left anterior hemiblock. 38. Left iliac crest nondisplaced fracture. 39. Facial hematomas and contusion. 40. Right supraorbital hematoma and left zygoma, hematoma. 41. Deconditioning. 42. Mild oral dysphagia. 43. Mild oral dysphagia with low-risk aspiration secondary to missing teeth. 1. Status post mechanical fall. 2. Facial periorbital and supraorbital contusions and hematoma. 3. History of hypertension. 4. History of dementia, history of neuropathy, and history of cerebrovascular accident with left internal carotid artery stents. 5. Normocytic anemia. 6. Granulocytosis. 7. Hypokalemia. 8. Metabolic alkalosis. 9. Acute kidney injury. 10. Microscopic hematuria. 11. Pyuria. 12. Gait dysfunction. 13. Intractable nausea and vomiting secondary to mechanical fall (resolved). 14. Left anterior superior iliac crest oblique minimally displaced comminuted fracture. 15. Osseous demineralization. 16. Degenerative joint disease. 17. History of cataract surgery. 18. History of dementia. 19. Hypertension. 20. Fascial periorbital and supraorbital hematoma and contusion and possible cellulitis. 1. Facial and periorbital and supraorbital contusion and hematoma. 2. Status post mechanical fall. 3. History of hypertension, history of cerebrovascular accident with left internal carotid artery stenting. 4. Facial contusion and hematoma. 5. Mild right-sided spastic weakness. 6. Hypertension. 7. Leukocytosis with granulocytosis. 8. Hypokalemia. 9. Metabolic alkalosis. 10. Hyperglycemia. 11. Left hand extensive degenerative joint disease with involving the carpometacarpal joint space with soft tissue swelling and osseous demineralization. 12. Left hip osseous demineralization. 13. Constipation. 14. Cervical spine degenerative disk disease without any acute fracture. 15. Right upper lobe pleural thickening and left-sided pleural calcification. 16. Multiple calcified pleural plaques bilateral suggestive of asbestos pleural disease. 17. Right upper lobe pleural thickening with suspected left-sided pleural calcification and asbestos-related bilateral pleural disease. 18. Oblique mildly displaced comminuted fracture of the anterior superior left iliac crest. 19. Degenerative joint disease. 20. Sinus bradycardia. 21. Left axis deviation. 22. Hypertensive cardiovascular disease and left ventricular hypertrophy. 23. Gait dysfunction. 24. Deconditioning. 25. History of glaucoma. 26. History of dementia. 27. History of neuropathy. 28. History of hypertension. 29. Hypokalemia. 30. Metabolic alkalosis. 31. Hyperglycemia. 32. Pain syndrome secondary to fall. 33. Facial trauma and contusion, status post mechanical fall. 34. Questionable urinary tract infection. 35. Status post intractable nausea and vomiting secondary to fall. 36. History of herniated disk and back pain problem. 37. History of cataract. 1. Status post mechanical fall. 2. Facial contusion and trauma with bilateral periorbital and supraorbital hematoma and contusion. 3. Questionable urinary tract infection. 4. Intractable nausea and vomiting. 5. Gait dysfunction. 6. History of left carotid stenosis with status post left internal carotid artery stenting. 7. History of cataract. 8. Hypertension. 9. Granulocytosis. 10. Questionable facial cellulitis secondary to fall, contusion. 11. Hypokalemia. 12. Metabolic alkalosis. 13. Hyperglycemia. 14. Slight transaminitis. 15. Microscopic hematuria, pyuria, bacteria, questionable urinary tract infection. 16. Status post fall. 17. 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 18. Degenerative joint disease of the cervical spine without any acute fracture. 19. Right upper lobe pleural thickening and suspected left-sided pleural calcification with numerous calcified pleural plaques bilaterally suggestive of asbestos-related pleural disease. 20. Ectatic aorta. 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 22. Left anterior hemiblock. 23. Hypertensive cardiovascular disease. 24. History of cerebrovascular accident. 25. Questionable mild right upper extremity spastic weakness from prior cerebrovascular accident. 26. Extensive facial soft tissue swelling versus questionable cellulitis. 27. History of dementia, history of hypertension. 28. Oblique mildly displaced comminuted fracture of the left anterior superior iliac crest. 29. Degenerative joint disease. PLAN: At this time, the patient has been ordered stat venous Doppler of the left upper extremity. The patient has been ordered low-dose Toradol IV q.8 p.r.n. for pain. The patient is also ordered an Shadi wrap for the left elbow and left upper extremity. The patient has also been ordered Lidoderm patches. I have received a call from the patient's sister from [place]. The patient's sister has strictly advised to avoid narcotic pain medicine since the patient has history of narcotic dependence and abuse, and the patient has recently completed a successful drug rehab and detoxification program. The patient will be started and continued on the following medications on TCU, include as follows: 1. Norvasc 10 mg daily. 2. Ecotrin 81 mg daily. 3. Lipitor 10 mg daily. 4. Clonidine 0.1 mg twice a day. 5. Plavix 75 mg daily. 6. Cymbalta 30 mg at bedtime. 7. Heparin 5000 subcu q.12. 8. Toradol 15 mg IV q.8 p.r.n. 9. Xalatan eyedrops. 10. Lidoderm 5% patch to the affected area. 11. Lopressor 25 mg twice a day. 12. Bactroban cream to the left elbow area three times a day. 13. Zofran 4 mg IV q.4 p.r.n. 14. Protonix 40 mg daily for GI prophylaxis. 15. Exelon patch 4.6 mg daily. 16. Ultram 100 mg three times a day. At present, the patient is to be continued on the above therapeutic intervention. The patient's further management will be dependent upon the patient's clinical condition, hemodynamic status, as per the patient response to therapeutic intervention, as per the patient's diagnostic test results, and as per recommendations by all the physicians involved in the care of the patient. The patient's sister has been updated about her condition, diagnosis, and treatment plan at length. All questions concerned answered. Dictated and electronically signed, not read. Chance Law MD MTDD
[2017-10-24] MEDS: Pantoprazole 40 mg EC Tab PO SCH (05:44)
[2017-10-24] MEDS: Lidocaine 5% Patch TD SCH (10:16)
--- NOTE | 2017-10-24 10:22 | PN ---
DATE: SUBJECTIVE: This patient is in the Transition Care Unit, room 303, bed 1. The patient is seen this morning. She is lying down resting. She has been treated with heparin drip. The patient is on Toradol for pain. The patient has Xalatan medication for glaucoma. She has been treated for hypertension with metoprolol 25 mg and amlodipine 10 mg. The patient is on conversation says that she has a lot of pain especially in the left arm. She has no evidence of deep vein thrombosis, but she has an abrasion in the elbow area and contusion. PHYSICAL EXAMINATION: VITAL SIGNS: The pulse is 62, blood pressure 122/76, respirations are 20, O2 saturation 99% on room air. HEENT: The patient's head is normocephalic. The patient appears emaciated. MEDICATIONS: The patient's list of medication was mentioned. ASSESSMENT AND PLAN: The patient will continue current management. Note was in fact that the patient has had drug addiction, and she had done rehabilitation recently. So at this point, it has been advised that the patient does not get any narcotics. We will continue current management for pain with Toradol and watch the patient. Kacie Fontaine MD MTDD
[2017-10-24] MEDS: Latanoprost 2.5 ml Opht Soln OU SCH (22:15)
[2017-10-25] MEDS: Pantoprazole 40 mg EC Tab PO SCH (06:35)
[2017-10-25] MEDS: Lidocaine 5% Patch TD SCH (10:53)
--- NOTE | 2017-10-25 13:14 | PN ---
DATE: LOCATION: The patient is in the Transition Care Unit, [facility] in [place], room 303, bed 1. SUBJECTIVE: Patient is a 77-year-old female. She was admitted with multiple medical problems. She has a history of multiple aneurysms in the brain. Recently, she had a coil placed in one of them, but the other 2 are inoperable. Patient also has a history of a fall and fracture of the third cervical vertebrae. She does wear a brace in the neck for that. She has pain in the left elbow, also associated with the fall and contusion and abrasion of the elbow. Patient has past history of hypertension. Patient has history of coronary artery disease and patient also has osteoarthritic pain. PHYSICAL EXAMINATION: GENERAL: This morning, she is sitting, eating her breakfast. VITAL SIGNS: Pulse is 75, blood pressure 152/75. Patient's respirations are 16, O2 sat is 98% on room air. HEENT: Head is normocephalic. NECK: The neck brace is present. Patient is comfortable. CHEST: Trachea central. Breath sounds vesicular. No adventitious sound heard. HEART: Normal sinus rhythm. S1 and S2 present. ABDOMEN: Soft. Liver and spleen not palpable. CENTRAL NERVOUS SYSTEM: No focal deficits are noted. Patient is able to get out of bed and ambulate. MEDICATIONS: Consists of aspirin, patient is on 81 mg aspirin daily; clonidine 0.1 mg b.i.d. Patient is on Cymbalta 30 mg daily. Patient is on Exelon patch for dementia, but her mental state is much clear. Patient is on Lipitor 10 mg daily and metoprolol 25 mg daily, amlodipine 10 mg daily, Plavix 75 mg daily, pantoprazole 40 mg daily, and patient is on Toradol 15 mg IV q. 8 hours p.r.n. for pain and tramadol 100 mg t.i.d. for cervical pain. ASSESSMENT AND PLAN: Patient is improving. Please continue current management. We will follow up. Kacie Fontaine MD
[2017-10-25] MEDS: Latanoprost 2.5 ml Opht Soln OU SCH (21:22)
[2017-10-26] MEDS: Pantoprazole 40 mg EC Tab PO SCH (05:26)
[2017-10-26 09:39] LABS: BASO # 0.02 K/mm3 (0.0-2.0); BASO % 0.3 % (0.0-3.0); EOS # 0.1 (0.0-0.7); EOS % 1.6 % (1.5-5.0); GRAN # 5.13 (1.4-6.5); GRAN % 68.8 % (50.0-68.0); HEMATOCRIT 33.7 % (36.0-48.0); LYMPH # 1.5 (1.2-3.4); LYMPH % 19.4 % (22.0-35.0); MEAN CELL VOLUME 92.8 fl (80.0-105.0); MEAN CORPUSCULAR HGB CONC 32.3 g/dl (31.0-37.0); MEAN PLATELET VOLUME 10.4 fl (7.0-11.0); MONO # 0.7 (0.1-0.6); MONO % 9.9 % (1.0-6.0); WHITE BLOOD COUNT 7.5 10^3/ul (4.5-11.0)
[2017-10-26 10:01] LABS: ALB/GLOB RATIO 1.6 (1.1-1.8); BILIRUBIN,DIRECT 0.3 mg/dL (0.0-0.4); BILIRUBIN,TOTAL 0.6 mg/dL (0.2-1.3); MAGNESIUM 2.1 mg/dL (1.7-2.2); POTASSIUM 4.2 mmol/L (3.6-5.0); TOTAL PROTEIN 6.8 g/dL (5.8-8.3)
[2017-10-26] MEDS: Lidocaine 5% Patch TD SCH (10:27)
[2017-10-26] MEDS: Levalbuterol 0.63 MG/3 ML Inhal Soln UD IH SCH ×3 (13:24→19:43)
--- NOTE | 2017-10-26 14:01 | PN ---
DATE: 10/26/2017 LOCATION: The patient is seen in room 303, bed 1. SUBJECTIVE: The patient's overnight nurse's notes were reviewed. No adverse events documented. The patient is comfortable. The patient's last 24 hours vital signs were reviewed. The patient was seen by over the weekend including Thursday and Thursday on 10/24/2017 and 10/25/2017. PHYSICAL EXAMINATION: VITAL SIGNS: T-max 97.9, heart rate 63, respirations 18, O2 sat 100%, blood pressure 150/79. HEENT: Head examination shows decreasing right supraorbital, right periorbital hematoma and contusion and decreasing left infraorbital hematoma and contusion. Shows pink conjunctivae in addition to the decreasing hematoma and contusion. NECK: No neck rigidity. CHEST: Kyphosis. LUNGS: Shows no rales, crackles or wheezing. CARDIOVASCULAR: S1, S2, regular rhythm. ABDOMEN: Soft. Positive bowel sounds. GENITALIA: Female. RECTAL: Deferred. EXTREMITIES: Shows no pitting, no calf tenderness. No Homans' sign. Positive bruise of the left elbow and left antecubital area has decreased. MUSCULOSKELETAL: Shows a body mass index of 16. NEUROLOGIC: The patient is alert, awake, responsive, is able to move upper and lower extremities without assistance. Gait examination could not be tested. VASCULAR: Palpable pulses, left upper extremity and bilateral lower extremities venous Doppler which was done over the weekend is negative for DVT. DIAGNOSTIC DATA: Labs pending from today. IMPRESSION AND PLAN: 1. Deconditioning. 2. Gait dysfunction. 3. Status post mechanical fall. 4. Right supraorbital, right periorbital, right infraorbital, left infraorbital, left periorbital hematoma and contusion (resolving). 5. Hypertension. 6. Anemia. 7. Leukocytosis and granulocytosis. 8. Chronic pain disorder. 9. Dementia. 10. Dyslipidemia. 11. Glaucoma. 12. History of cerebral aneurysm. 13. Status post aneurysm surgery. 14 History of gait dysfunction. 1. Gait dysfunction. 2. Deconditioning. 3. Acute pain syndrome secondary to mechanical fall. 4. History of narcotic abuse and dependence, status post drug rehabilitation and detoxification. 5. Left elbow area bruising, contusion, and questionable small hematoma versus cellulitis. 6. Status post mechanical fall. 7. Multiple facial contusions. 8. Hematoma. 9. Right supraorbital, right periorbital hematoma. 10. Left infraorbital and supraorbital hematoma. 11. Right frontal hematoma and contusion and scalp swelling. 12. Hypertension. 13. Dyslipidemia. 14. Neuropathic pain syndrome. 15. Intractable nausea and vomiting (resolved). 16. Dementia. 17. Glaucoma. 1. Status post mechanical fall. 2. Left pelvic, left iliac crest fracture. 3. Intractable vomiting (resolved). 4. Left hip pain. 5. Facial supraorbital, periorbital and infraorbital contusion, hematoma, and cellulitis (resolving). 6. Left iliac crest fracture with minimal displacement. 7. Gait dysfunction. 8. Hypertension. 9. History of cerebral aneurysm, status post left internal carotid artery stenting. 10. Deconditioning. 11. . 12. Mild oral dysphagia. 13. Leukocytosis with granulocytosis. 14. Mild normocytic anemia. 15. Ketonuria, microscopic hematuria, pyuria, bacteriuria. 16. O positive blood type. 17. Left iliac crest oblique minimally displaced comminuted fracture of the anterior superior left iliac crest. 18. Osseous demineralization. 19. Degenerative joint disease. 20. Ketonuria. 21. Status post fall. 22. Patent stent of the cavernous segment of the left internal carotid artery with mild diffuse narrowing in the region of the stent. 23. 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 24. Chronic microvascular ischemic disease of the brain with bilateral frontoparietal and periatrial white matter chronic ischemia. 25. Bilateral basal ganglia, chronic ischemic changes versus lacunar infarction. 26. Cerebral cortical atrophy of the brain. 27. Pontine chronic ischemic changes. 28. Ventriculomegaly. 29. Right frontal scalp extensive scalp hematoma. 30. Supraclinoid left internal carotid artery 8 mm rounded thrombosed aneurysm with peripheral calcification. 31. Diffuse age-related cerebral cortical atrophy of the brain. 32. Right upper lobe pleural thickening and suspected left-sided pleural calcification with numerous calcified pleural plaques bilaterally. 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 34. Degenerative joint disease of the cervical spine with osteophyte formation, disc space narrowing, endplate changes, and facet arthropathy with thickening of the transverse ligament with synovial hypertrophy. 35. Large right frontal scalp hematoma with edema with moderate bilateral preseptal periorbital soft tissue hematoma without post-septal involvement of the orbits bilaterally. 36. Osseous demineralization of the left hip. 37. Osseous demineralization of the left hand with degenerative joint disease of the left hand and joint space narrowing, especially in the carpometacarpal joint space. 38. Left hand soft tissue swelling. 39. 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 1. Status post mechanical fall. 2. Multiple facial supraorbital, periorbital, infraorbital contusion, hematoma and cellulitis secondary to fall. 3. Hypertension. 4. Normocytic anemia. 5. Granulocytosis. 6. Mild metabolic alkalosis. 7. Hypokalemia. 8. Deconditioning. 9. Gait dysfunction. 10. History of cerebrovascular accident. 11. Glaucoma and cataract. 12. Neuropathy. 13. Questionable dementia. 14. History of cerebral infarct. 15. Facial cellulitis and contusion. 16. Status post intractable nausea resolved. 17. Ketonuria, microscopic hematuria, pyuria, and bacteriuria with negative urine culture. 18. O positive blood type. 19. Mild oral dysphagia with low risk for aspiration secondary to missing teeth, minimal fatigue and slow oral transit and oral residue. 20. Questionable feeding dysfunction. 1. Status post mechanical fall. 2. Multiple facial, supraorbital, periorbital, infraorbital contusions and hematoma and cellulitis secondary to fall. 3. History of cerebrovascular accident status post left internal carotid artery stenting. 4. Mild spastic right upper extremity weakness. 5. Hypertension. 6. Leukocytosis with granulocytosis. 7. Normocytic anemia. 8. Mild transaminitis. 9. Hypokalemia. 10. Ketonuria, hematuria, pyuria, bacteriuria. 11. O+ blood type. 12. Oblique, mildly displaced comminuted fracture of the anterior superior left iliac crest. 13. Degenerative joint disease. 14. Patent stent in the cavernous segment of the left internal carotid artery. 15. Diffuse narrowing in the region of the stent. 16. 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 17. Left internal carotid artery cavernous segment patent stent. 18. Mild diffuse narrowing within the region of the left internal carotid artery cavernous segment stent. 19. Stable 8-mm thrombosed aneurysm arising from supraclinoid left internal carotid artery and projecting anteriorly, superiorly with no flow in the aneurysm. 20. Chronic microvascular ischemic disease of the brain. 21. Multiple chronic ischemic disease of the brain of bilateral frontoparietal and periatrial white matter chronic ischemic disease and lacunar infarcts of the bilateral basal ganglia. 22. Diffuse cerebral cortical atrophy. 23. Chronic pontine ischemic changes. 24. Ventriculomegaly. 25. Right frontal hematoma. 26. Stable 8-mm thrombosed aneurysm with peripheral calcification arousing from the supraclinoid left internal carotid artery. 27. Right upper lobe pleural thickening and suspected left-sided pleural calcification. 28. 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 29. Ectatic aortic . 30. Degenerative joint disease with osteophyte formation and disc space narrowing and facet arthropathy of the cervical spine and thickening of the transverse ligament and synovial hypertrophy of the cervical spine. 31. Large right frontal scalp hematoma with edema and hematoma with [id number] severity of the bilateral preseptal periorbital soft tissue without post-septal involvement. 32. Posttraumatic hematoma and soft tissue edema of the bilateral periorbital and right frontal soft tissue region without underlying fracture and preseptal periorbital edema and hematoma without obvious post-septal involvement bilaterally. 33. Gait dysfunction. 34. Deconditioning. 35. Osseous demineralization of the hips. 36. Left hand soft tissue swelling and osseous demineralization and degenerative joint disease. 37. Left axis deviation and left anterior hemiblock. 38. Left iliac crest nondisplaced fracture. 39. Facial hematomas and contusion. 40. Right supraorbital hematoma and left zygoma, hematoma. 41. Deconditioning. 42. Mild oral dysphagia. 43. Mild oral dysphagia with low-risk aspiration secondary to missing teeth. 1. Status post mechanical fall. 2. Facial periorbital and supraorbital contusions and hematoma. 3. History of hypertension. 4. History of dementia, history of neuropathy, and history of cerebrovascular accident with left internal carotid artery stents. 5. Normocytic anemia. 6. Granulocytosis. 7. Hypokalemia. 8. Metabolic alkalosis. 9. Acute kidney injury. 10. Microscopic hematuria. 11. Pyuria. 12. Gait dysfunction. 13. Intractable nausea and vomiting secondary to mechanical fall (resolved). 14. Left anterior superior iliac crest oblique minimally displaced comminuted fracture. 15. Osseous demineralization. 16. Degenerative joint disease. 17. History of cataract surgery. 18. History of dementia. 19. Hypertension. 20. Fascial periorbital and supraorbital hematoma and contusion and possible cellulitis. 1. Facial and periorbital and supraorbital contusion and hematoma. 2. Status post mechanical fall. 3. History of hypertension, history of cerebrovascular accident with left internal carotid artery stenting. 4. Facial contusion and hematoma. 5. Mild right-sided spastic weakness. 6. Hypertension. 7. Leukocytosis with granulocytosis. 8. Hypokalemia. 9. Metabolic alkalosis. 10. Hyperglycemia. 11. Left hand extensive degenerative joint disease with involving the carpometacarpal joint space with soft tissue swelling and osseous demineralization. 12. Left hip osseous demineralization. 13. Constipation. 14. Cervical spine degenerative disk disease without any acute fracture. 15. Right upper lobe pleural thickening and left-sided pleural calcification. 16. Multiple calcified pleural plaques bilateral suggestive of asbestos pleural disease. 17. Right upper lobe pleural thickening with suspected left-sided pleural calcification and asbestos-related bilateral pleural disease. 18. Oblique mildly displaced comminuted fracture of the anterior superior left iliac crest. 19. Degenerative joint disease. 20. Sinus bradycardia. 21. Left axis deviation. 22. Hypertensive cardiovascular disease and left ventricular hypertrophy. 23. Gait dysfunction. 24. Deconditioning. 25. History of glaucoma. 26. History of dementia. 27. History of neuropathy. 28. History of hypertension. 29. Hypokalemia. 30. Metabolic alkalosis. 31. Hyperglycemia. 32. Pain syndrome secondary to fall. 33. Facial trauma and contusion, status post mechanical fall. 34. Questionable urinary tract infection. 35. Status post intractable nausea and vomiting secondary to fall. 36. History of herniated disk and back pain problem. 37. History of cataract. 1. Status post mechanical fall. 2. Facial contusion and trauma with bilateral periorbital and supraorbital hematoma and contusion. 3. Questionable urinary tract infection. 4. Intractable nausea and vomiting. 5. Gait dysfunction. 6. History of left carotid stenosis with status post left internal carotid artery stenting. 7. History of cataract. 8. Hypertension. 9. Granulocytosis. 10. Questionable facial cellulitis secondary to fall, contusion. 11. Hypokalemia. 12. Metabolic alkalosis. 13. Hyperglycemia. 14. Slight transaminitis. 15. Microscopic hematuria, pyuria, bacteria, questionable urinary tract infection. 16. Status post fall. 17. 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 18. Degenerative joint disease of the cervical spine without any acute fracture. 19. Right upper lobe pleural thickening and suspected left-sided pleural calcification with numerous calcified pleural plaques bilaterally suggestive of asbestos-related pleural disease. 20. Ectatic aorta. 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 22. Left anterior hemiblock. 23. Hypertensive cardiovascular disease. 24. History of cerebrovascular accident. 25. Questionable mild right upper extremity spastic weakness from prior cerebrovascular accident. 26. Extensive facial soft tissue swelling versus questionable cellulitis. 27. History of dementia, history of hypertension. 28. Oblique mildly displaced comminuted fracture of the left anterior superior iliac crest. 29. Degenerative joint disease. PLAN: At this time, the patient's labs are pending, which will be reviewed. The patient will be continued on physical therapy, occupational therapy, ambulation therapy, gait therapy. MEDICATIONS: The patient's current medications will be continued as follows: Aspirin 81 mg p.o. daily, Bactroban cream to the affected area twice a day, clonidine 0.1 mg twice a day, Cymbalta 30 mg daily, Exelon patch 4.6 mg daily, heparin 5000 subcu q. 12 h. for DVT prophylaxis, Lidoderm 5% patch to the affected area, Lipitor 10 mg daily, Lopressor 25 mg twice a day, Norvasc 10 mg daily, Plavix 75 mg daily, Protonix 40 mg daily for GI prophylaxis, Toradol 15 mg IV q. 8 hours p.r.n. for severe breakthrough pain, Ultram 100 mg three times a day schedule, Xalatan eye drops and Zofran 4 mg IV q. 4 h. p.r.n. At this time, the patient is to be continued on the Transitional Care Unit stay. The patient will complete approved number of Transitional Care Unit stay. The patient's sister has been advised on multiple occasions that the patient most likely will require and benefit from 24-hour care and supervision due to the patient's underlying multiple comorbidities and medical condition and decompensated state which they acknowledged and understand. All questions concerned answered. Dictated and electronically signed, not read. Chance Law MD [facility] # [id number] SIRE[place]
--- NOTE | 2017-10-26 19:01 | US ---
PROCEDURE: Left upper extremity venous ultrasound HISTORY: Arm pain and swelling. Evaluate for deep venous thrombosis. PHYSICIAN(S): Luis Gamble MD. FINDINGS: The visualized leftinternal jugular vein is sonographically normal and compressible. No evidence of obstruction or thrombus is seen. The visualized segments of the left subclavian vein are patent with normal waveforms. No sonographic evidence of obstruction or thrombosis is seen. The visualized deep venous system of the proximal leftupper extremity is sonographically normal and compressible. IMPRESSION: 1. No sonographic evidence for deep venous thrombosis in the visualized segments of the left upper extremity.
[2017-10-26] MEDS: Latanoprost 2.5 ml Opht Soln OU SCH (21:10)
[2017-10-27] MEDS: Levalbuterol 0.63 MG/3 ML Inhal Soln UD IH SCH ×4 (03:24→19:54)
[2017-10-27] MEDS: Pantoprazole 40 mg EC Tab PO SCH (05:00)
[2017-10-27] MEDS: Lidocaine 5% Patch TD SCH (11:41)
--- NOTE | 2017-10-27 13:56 | PN ---
DATE: 10/27/2017 SUBJECTIVE: The patient is seen while coming back from the physical therapy exercise room. The patient was seen sitting up in the wheelchair. The patient is stating some lip changes in lip color, which is pink and requesting probiotic. I have advised the patient that I am unable to understand what she is really mean by lip color changes and use of probiotic. At that point, the patient did not want to discuss this issue anymore. Overnight nurse's notes were reviewed. No adverse events documented. The patient did not offer any specific complaint. OBJECTIVE: VITAL SIGNS: T-max 98, pulse 72, blood pressure 120/76 and 110/78, respirations 16, and O2 sat 95%. HEENT: Head: Normocephalic, atraumatic. HEENT examination shows positive right supraorbital hematoma. Positive left-sided infraorbital area bruising and discoloration, resolving left periorbital hematoma, decreasing right periorbital hematoma. Positive multiple bruising noted of the face. NECK: No neck rigidity. CHEST: Kyphosis. LUNGS: Shows occasional rhonchi upper lung huerta. CARDIOVASCULAR: S1 and S2, regular rhythm. ABDOMEN: Soft. Positive bowel sound. GENITALIA: Female. RECTAL: Deferred. EXTREMITIES: Lower extremity shows no pitting edema, no calf tenderness, no Homans' sign. NEUROLOGIC: The patient is alert, awake, and responsive. He is able to move upper and lower extremities without assistance. The patient's motor strength is 5/5 in upper and lower extremities. Gait examination is not tested. The patient is seen sitting in the wheelchair. MUSCULOSKELETAL: Shows body mass index of 16.5. IMPRESSION AND PLAN: 1. Deconditioning. 2. Gait dysfunction. 3. Status post mechanical fall. 4. Multiple facial contusions and hematoma. 5. Hypertension. 6. Neuropathy. 7. Dementia. 8. Dyslipidemia. 9. Chronic pain syndrome. 10. Mild oral dysphagia (resolved). 1. Deconditioning. 2. Gait dysfunction. 3. Status post mechanical fall. 4. Right supraorbital, right periorbital, right infraorbital, left infraorbital, left periorbital hematoma and contusion (resolving). 5. Hypertension. 6. Anemia. 7. Leukocytosis and granulocytosis. 8. Chronic pain disorder. 9. Dementia. 10. Dyslipidemia. 11. Glaucoma. 12. History of cerebral aneurysm. 13. Status post aneurysm surgery. 14 History of gait dysfunction. 1. Gait dysfunction. 2. Deconditioning. 3. Acute pain syndrome secondary to mechanical fall. 4. History of narcotic abuse and dependence, status post drug rehabilitation and detoxification. 5. Left elbow area bruising, contusion, and questionable small hematoma versus cellulitis. 6. Status post mechanical fall. 7. Multiple facial contusions. 8. Hematoma. 9. Right supraorbital, right periorbital hematoma. 10. Left infraorbital and supraorbital hematoma. 11. Right frontal hematoma and contusion and scalp swelling. 12. Hypertension. 13. Dyslipidemia. 14. Neuropathic pain syndrome. 15. Intractable nausea and vomiting (resolved). 16. Dementia. 17. Glaucoma. 1. Status post mechanical fall. 2. Left pelvic, left iliac crest fracture. 3. Intractable vomiting (resolved). 4. Left hip pain. 5. Facial supraorbital, periorbital and infraorbital contusion, hematoma, and cellulitis (resolving). 6. Left iliac crest fracture with minimal displacement. 7. Gait dysfunction. 8. Hypertension. 9. History of cerebral aneurysm, status post left internal carotid artery stenting. 10. Deconditioning. 11. . 12. Mild oral dysphagia. 13. Leukocytosis with granulocytosis. 14. Mild normocytic anemia. 15. Ketonuria, microscopic hematuria, pyuria, bacteriuria. 16. O positive blood type. 17. Left iliac crest oblique minimally displaced comminuted fracture of the anterior superior left iliac crest. 18. Osseous demineralization. 19. Degenerative joint disease. 20. Ketonuria. 21. Status post fall. 22. Patent stent of the cavernous segment of the left internal carotid artery with mild diffuse narrowing in the region of the stent. 23. 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 24. Chronic microvascular ischemic disease of the brain with bilateral frontoparietal and periatrial white matter chronic ischemia. 25. Bilateral basal ganglia, chronic ischemic changes versus lacunar infarction. 26. Cerebral cortical atrophy of the brain. 27. Pontine chronic ischemic changes. 28. Ventriculomegaly. 29. Right frontal scalp extensive scalp hematoma. 30. Supraclinoid left internal carotid artery 8 mm rounded thrombosed aneurysm with peripheral calcification. 31. Diffuse age-related cerebral cortical atrophy of the brain. 32. Right upper lobe pleural thickening and suspected left-sided pleural calcification with numerous calcified pleural plaques bilaterally. 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 34. Degenerative joint disease of the cervical spine with osteophyte formation, disc space narrowing, endplate changes, and facet arthropathy with thickening of the transverse ligament with synovial hypertrophy. 35. Large right frontal scalp hematoma with edema with moderate bilateral preseptal periorbital soft tissue hematoma without post-septal involvement of the orbits bilaterally. 36. Osseous demineralization of the left hip. 37. Osseous demineralization of the left hand with degenerative joint disease of the left hand and joint space narrowing, especially in the carpometacarpal joint space. 38. Left hand soft tissue swelling. 39. 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 1. Status post mechanical fall. 2. Multiple facial supraorbital, periorbital, infraorbital contusion, hematoma and cellulitis secondary to fall. 3. Hypertension. 4. Normocytic anemia. 5. Granulocytosis. 6. Mild metabolic alkalosis. 7. Hypokalemia. 8. Deconditioning. 9. Gait dysfunction. 10. History of cerebrovascular accident. 11. Glaucoma and cataract. 12. Neuropathy. 13. Questionable dementia. 14. History of cerebral infarct. 15. Facial cellulitis and contusion. 16. Status post intractable nausea resolved. 17. Ketonuria, microscopic hematuria, pyuria, and bacteriuria with negative urine culture. 18. O positive blood type. 19. Mild oral dysphagia with low risk for aspiration secondary to missing teeth, minimal fatigue and slow oral transit and oral residue. 20. Questionable feeding dysfunction. 1. Status post mechanical fall. 2. Multiple facial, supraorbital, periorbital, infraorbital contusions and hematoma and cellulitis secondary to fall. 3. History of cerebrovascular accident status post left internal carotid artery stenting. 4. Mild spastic right upper extremity weakness. 5. Hypertension. 6. Leukocytosis with granulocytosis. 7. Normocytic anemia. 8. Mild transaminitis. 9. Hypokalemia. 10. Ketonuria, hematuria, pyuria, bacteriuria. 11. O+ blood type. 12. Oblique, mildly displaced comminuted fracture of the anterior superior left iliac crest. 13. Degenerative joint disease. 14. Patent stent in the cavernous segment of the left internal carotid artery. 15. Diffuse narrowing in the region of the stent. 16. 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 17. Left internal carotid artery cavernous segment patent stent. 18. Mild diffuse narrowing within the region of the left internal carotid artery cavernous segment stent. 19. Stable 8-mm thrombosed aneurysm arising from supraclinoid left internal carotid artery and projecting anteriorly, superiorly with no flow in the aneurysm. 20. Chronic microvascular ischemic disease of the brain. 21. Multiple chronic ischemic disease of the brain of bilateral frontoparietal and periatrial white matter chronic ischemic disease and lacunar infarcts of the bilateral basal ganglia. 22. Diffuse cerebral cortical atrophy. 23. Chronic pontine ischemic changes. 24. Ventriculomegaly. 25. Right frontal hematoma. 26. Stable 8-mm thrombosed aneurysm with peripheral calcification arousing from the supraclinoid left internal carotid artery. 27. Right upper lobe pleural thickening and suspected left-sided pleural calcification. 28. 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 29. Ectatic aortic . 30. Degenerative joint disease with osteophyte formation and disc space narrowing and facet arthropathy of the cervical spine and thickening of the transverse ligament and synovial hypertrophy of the cervical spine. 31. Large right frontal scalp hematoma with edema and hematoma with [id number] severity of the bilateral preseptal periorbital soft tissue without post-septal involvement. 32. Posttraumatic hematoma and soft tissue edema of the bilateral periorbital and right frontal soft tissue region without underlying fracture and preseptal periorbital edema and hematoma without obvious post-septal involvement bilaterally. 33. Gait dysfunction. 34. Deconditioning. 35. Osseous demineralization of the hips. 36. Left hand soft tissue swelling and osseous demineralization and degenerative joint disease. 37. Left axis deviation and left anterior hemiblock. 38. Left iliac crest nondisplaced fracture. 39. Facial hematomas and contusion. 40. Right supraorbital hematoma and left zygoma, hematoma. 41. Deconditioning. 42. Mild oral dysphagia. 43. Mild oral dysphagia with low-risk aspiration secondary to missing teeth. 1. Status post mechanical fall. 2. Facial periorbital and supraorbital contusions and hematoma. 3. History of hypertension. 4. History of dementia, history of neuropathy, and history of cerebrovascular accident with left internal carotid artery stents. 5. Normocytic anemia. 6. Granulocytosis. 7. Hypokalemia. 8. Metabolic alkalosis. 9. Acute kidney injury. 10. Microscopic hematuria. 11. Pyuria. 12. Gait dysfunction. 13. Intractable nausea and vomiting secondary to mechanical fall (resolved). 14. Left anterior superior iliac crest oblique minimally displaced comminuted fracture. 15. Osseous demineralization. 16. Degenerative joint disease. 17. History of cataract surgery. 18. History of dementia. 19. Hypertension. 20. Fascial periorbital and supraorbital hematoma and contusion and possible cellulitis. 1. Facial and periorbital and supraorbital contusion and hematoma. 2. Status post mechanical fall. 3. History of hypertension, history of cerebrovascular accident with left internal carotid artery stenting. 4. Facial contusion and hematoma. 5. Mild right-sided spastic weakness. 6. Hypertension. 7. Leukocytosis with granulocytosis. 8. Hypokalemia. 9. Metabolic alkalosis. 10. Hyperglycemia. 11. Left hand extensive degenerative joint disease with involving the carpometacarpal joint space with soft tissue swelling and osseous demineralization. 12. Left hip osseous demineralization. 13. Constipation. 14. Cervical spine degenerative disk disease without any acute fracture. 15. Right upper lobe pleural thickening and left-sided pleural calcification. 16. Multiple calcified pleural plaques bilateral suggestive of asbestos pleural disease. 17. Right upper lobe pleural thickening with suspected left-sided pleural calcification and asbestos-related bilateral pleural disease. 18. Oblique mildly displaced comminuted fracture of the anterior superior left iliac crest. 19. Degenerative joint disease. 20. Sinus bradycardia. 21. Left axis deviation. 22. Hypertensive cardiovascular disease and left ventricular hypertrophy. 23. Gait dysfunction. 24. Deconditioning. 25. History of glaucoma. 26. History of dementia. 27. History of neuropathy. 28. History of hypertension. 29. Hypokalemia. 30. Metabolic alkalosis. 31. Hyperglycemia. 32. Pain syndrome secondary to fall. 33. Facial trauma and contusion, status post mechanical fall. 34. Questionable urinary tract infection. 35. Status post intractable nausea and vomiting secondary to fall. 36. History of herniated disk and back pain problem. 37. History of cataract. 1. Status post mechanical fall. 2. Facial contusion and trauma with bilateral periorbital and supraorbital hematoma and contusion. 3. Questionable urinary tract infection. 4. Intractable nausea and vomiting. 5. Gait dysfunction. 6. History of left carotid stenosis with status post left internal carotid artery stenting. 7. History of cataract. 8. Hypertension. 9. Granulocytosis. 10. Questionable facial cellulitis secondary to fall, contusion. 11. Hypokalemia. 12. Metabolic alkalosis. 13. Hyperglycemia. 14. Slight transaminitis. 15. Microscopic hematuria, pyuria, bacteria, questionable urinary tract infection. 16. Status post fall. 17. 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 18. Degenerative joint disease of the cervical spine without any acute fracture. 19. Right upper lobe pleural thickening and suspected left-sided pleural calcification with numerous calcified pleural plaques bilaterally suggestive of asbestos-related pleural disease. 20. Ectatic aorta. 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 22. Left anterior hemiblock. 23. Hypertensive cardiovascular disease. 24. History of cerebrovascular accident. 25. Questionable mild right upper extremity spastic weakness from prior cerebrovascular accident. 26. Extensive facial soft tissue swelling versus questionable cellulitis. 27. History of dementia, history of hypertension. 28. Oblique mildly displaced comminuted fracture of the left anterior superior iliac crest. 29. Degenerative joint disease. PLAN: At this time, the patient is to be continued on Transitional Care Unit. The patient is currently on: 1. Aspirin 81 mg daily. 2. Bactroban cream to the affected area three times a day. 3. Clonidine 0.1 mg twice a day. 4. Cymbalta 30 mg at bedtime. 5. Exelon patch 4.6 mg daily. 6. Heparin 5000 subcu q.12 hours. 7. Lidoderm 5% patch. 8. Lipitor 10 mg daily. 9. Lopressor 25 mg twice a day. 10. Norvasc 10 mg daily. 11. Plavix 75 mg daily. 12. Protonix 40 mg daily. 13. Toradol 15 mg IV q.8 hours p.r.n. 14. Ultram 100 mg three times a day. 15. Xalatan eye drops OU at bedtime. 16. Xopenex nebulizer 0.63 mg every 6 hours. 17. Zofran 4 mg IV q.4 hours p.r.n. The patient is on dysphagia modified consistency diet, ANNA stockings, SCDs ordered, physical therapy, occupational therapy ordered. The patient is undergoing physical and occupational therapy. Their recommendation is to continue PT home with services. The patient is to continue on the Transitional Care Unit until completion of stay. The patient's further management will be dependent upon the patient's clinical condition, hemodynamic status and as per the patient response to therapeutic intervention as per the patient's subjective and objective issues. Dictated and electronically signed, not read. Chance Law MD MTDD
[2017-10-27] MEDS: Latanoprost 2.5 ml Opht Soln OU SCH (22:40)
[2017-10-28] MEDS: Levalbuterol 0.63 MG/3 ML Inhal Soln UD IH SCH ×4 (01:40→19:36)
[2017-10-28] MEDS: Pantoprazole 40 mg EC Tab PO SCH (05:44)
[2017-10-28] MEDS: Lidocaine 5% Patch TD SCH (10:32)
--- NOTE | 2017-10-28 12:42 | PN ---
DATE: 10/28/2017 LOCATION: The patient is seen in room number 303, bed 1. SUBJECTIVE: The patient's last 24 hours and overnight nurse's notes were reviewed. The patient had family visitation mostly yesterday. The patient was found to be alert, awake, oriented x3. Left arm Shadi wrap was noted. Left elbow swelling and hematoma and bruising is much improved. No adverse events documented by nursing. PHYSICAL EXAMINATION: VITAL SIGNS: T-max is 98.2, pulse is 76, blood pressure is 115/79, respirations are 16, and O2 saturation is 99% on room air. HEENT: The patient's HEENT examination shows positive right supraorbital hematoma, decreasing periorbital hematoma and bruising. Left infraorbital bruising is change in colors today. No left periorbital hematoma noted. Pinkish pale conjunctivae. Anicteric sclerae. No oropharyngeal lesion. NECK: No neck rigidity. CHEST: Examination shows kyphosis. LUNGS: Examination shows no rales, crackles or wheezing. CARDIOVASCULAR: Examination shows S1 and S2, regular rhythm. Questionable soft systolic murmur left sternal border, left second intercostal space. GASTROINTESTINAL: Abdomen is soft. Positive bowel sound. GENITALIA: Female. RECTAL: Examination deferred. EXTREMITIES: Shows no pitting, no calf tenderness, and no Jayme's signs. NEUROLOGIC: The patient is alert, awake, responsive, and follows command. She is able to move upper and lower extremity without assistance. Gait examination is not tested. VASCULAR: Examination shows palpable pulses. PSYCHIATRIC: Examination is negative for anxiety or depression. Negative for suicidal or homicidal ideation. Negative for auditory or visual hallucination. DIAGNOSTIC DATA: None from today. IMPRESSION AND PLAN 1. Deconditioning. 2. Gait dysfunction. 3. Status post mechanical fall. 4. Right supraorbital hematoma and contusion. 5. Right periorbital hematoma and contusion (resolving). 6. Left periorbital hematoma and contusion, resolving. 7. Left infraorbital contusion and hematoma (resolving. 8. History of dementia. 9. History of hypertension. 10. Normocytic anemia. 11. Granulocytosis. 12. Prerenal kidney injury. 13. Neuropathy. 14. Dementia. 15. Hyperlipidemia. 16. Hypertension. 17. History of cerebral infarct. 18. History of left internal carotid artery stenting. 19. Glaucoma. 20. Status post intractable nausea and vomiting. 21. Gait dysfunction. 22. Mild dysphagia. 23. Mild oral dysphagia. 24. Gait dysfunction. 1. Deconditioning. 2. Gait dysfunction. 3. Status post mechanical fall. 4. Multiple facial contusions and hematoma. 5. Hypertension. 6. Neuropathy. 7. Dementia. 8. Dyslipidemia. 9. Chronic pain syndrome. 10. Mild oral dysphagia (resolved). 1. Deconditioning. 2. Gait dysfunction. 3. Status post mechanical fall. 4. Right supraorbital, right periorbital, right infraorbital, left infraorbital, left periorbital hematoma and contusion (resolving). 5. Hypertension. 6. Anemia. 7. Leukocytosis and granulocytosis. 8. Chronic pain disorder. 9. Dementia. 10. Dyslipidemia. 11. Glaucoma. 12. History of cerebral aneurysm. 13. Status post aneurysm surgery. 14 History of gait dysfunction. 1. Gait dysfunction. 2. Deconditioning. 3. Acute pain syndrome secondary to mechanical fall. 4. History of narcotic abuse and dependence, status post drug rehabilitation and detoxification. 5. Left elbow area bruising, contusion, and questionable small hematoma versus cellulitis. 6. Status post mechanical fall. 7. Multiple facial contusions. 8. Hematoma. 9. Right supraorbital, right periorbital hematoma. 10. Left infraorbital and supraorbital hematoma. 11. Right frontal hematoma and contusion and scalp swelling. 12. Hypertension. 13. Dyslipidemia. 14. Neuropathic pain syndrome. 15. Intractable nausea and vomiting (resolved). 16. Dementia. 17. Glaucoma. 1. Status post mechanical fall. 2. Left pelvic, left iliac crest fracture. 3. Intractable vomiting (resolved). 4. Left hip pain. 5. Facial supraorbital, periorbital and infraorbital contusion, hematoma, and cellulitis (resolving). 6. Left iliac crest fracture with minimal displacement. 7. Gait dysfunction. 8. Hypertension. 9. History of cerebral aneurysm, status post left internal carotid artery stenting. 10. Deconditioning. 11. . 12. Mild oral dysphagia. 13. Leukocytosis with granulocytosis. 14. Mild normocytic anemia. 15. Ketonuria, microscopic hematuria, pyuria, bacteriuria. 16. O positive blood type. 17. Left iliac crest oblique minimally displaced comminuted fracture of the anterior superior left iliac crest. 18. Osseous demineralization. 19. Degenerative joint disease. 20. Ketonuria. 21. Status post fall. 22. Patent stent of the cavernous segment of the left internal carotid artery with mild diffuse narrowing in the region of the stent. 23. 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 24. Chronic microvascular ischemic disease of the brain with bilateral frontoparietal and periatrial white matter chronic ischemia. 25. Bilateral basal ganglia, chronic ischemic changes versus lacunar infarction. 26. Cerebral cortical atrophy of the brain. 27. Pontine chronic ischemic changes. 28. Ventriculomegaly. 29. Right frontal scalp extensive scalp hematoma. 30. Supraclinoid left internal carotid artery 8 mm rounded thrombosed aneurysm with peripheral calcification. 31. Diffuse age-related cerebral cortical atrophy of the brain. 32. Right upper lobe pleural thickening and suspected left-sided pleural calcification with numerous calcified pleural plaques bilaterally. 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 34. Degenerative joint disease of the cervical spine with osteophyte formation, disc space narrowing, endplate changes, and facet arthropathy with thickening of the transverse ligament with synovial hypertrophy. 35. Large right frontal scalp hematoma with edema with moderate bilateral preseptal periorbital soft tissue hematoma without post-septal involvement of the orbits bilaterally. 36. Osseous demineralization of the left hip. 37. Osseous demineralization of the left hand with degenerative joint disease of the left hand and joint space narrowing, especially in the carpometacarpal joint space. 38. Left hand soft tissue swelling. 39. 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 1. Status post mechanical fall. 2. Multiple facial supraorbital, periorbital, infraorbital contusion, hematoma and cellulitis secondary to fall. 3. Hypertension. 4. Normocytic anemia. 5. Granulocytosis. 6. Mild metabolic alkalosis. 7. Hypokalemia. 8. Deconditioning. 9. Gait dysfunction. 10. History of cerebrovascular accident. 11. Glaucoma and cataract. 12. Neuropathy. 13. Questionable dementia. 14. History of cerebral infarct. 15. Facial cellulitis and contusion. 16. Status post intractable nausea resolved. 17. Ketonuria, microscopic hematuria, pyuria, and bacteriuria with negative urine culture. 18. O positive blood type. 19. Mild oral dysphagia with low risk for aspiration secondary to missing teeth, minimal fatigue and slow oral transit and oral residue. 20. Questionable feeding dysfunction. 1. Status post mechanical fall. 2. Multiple facial, supraorbital, periorbital, infraorbital contusions and hematoma and cellulitis secondary to fall. 3. History of cerebrovascular accident status post left internal carotid artery stenting. 4. Mild spastic right upper extremity weakness. 5. Hypertension. 6. Leukocytosis with granulocytosis. 7. Normocytic anemia. 8. Mild transaminitis. 9. Hypokalemia. 10. Ketonuria, hematuria, pyuria, bacteriuria. 11. O+ blood type. 12. Oblique, mildly displaced comminuted fracture of the anterior superior left iliac crest. 13. Degenerative joint disease. 14. Patent stent in the cavernous segment of the left internal carotid artery. 15. Diffuse narrowing in the region of the stent. 16. 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 17. Left internal carotid artery cavernous segment patent stent. 18. Mild diffuse narrowing within the region of the left internal carotid artery cavernous segment stent. 19. Stable 8-mm thrombosed aneurysm arising from supraclinoid left internal carotid artery and projecting anteriorly, superiorly with no flow in the aneurysm. 20. Chronic microvascular ischemic disease of the brain. 21. Multiple chronic ischemic disease of the brain of bilateral frontoparietal and periatrial white matter chronic ischemic disease and lacunar infarcts of the bilateral basal ganglia. 22. Diffuse cerebral cortical atrophy. 23. Chronic pontine ischemic changes. 24. Ventriculomegaly. 25. Right frontal hematoma. 26. Stable 8-mm thrombosed aneurysm with peripheral calcification arousing from the supraclinoid left internal carotid artery. 27. Right upper lobe pleural thickening and suspected left-sided pleural calcification. 28. 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 29. Ectatic aortic . 30. Degenerative joint disease with osteophyte formation and disc space narrowing and facet arthropathy of the cervical spine and thickening of the transverse ligament and synovial hypertrophy of the cervical spine. 31. Large right frontal scalp hematoma with edema and hematoma with [id number] severity of the bilateral preseptal periorbital soft tissue without post-septal involvement. 32. Posttraumatic hematoma and soft tissue edema of the bilateral periorbital and right frontal soft tissue region without underlying fracture and preseptal periorbital edema and hematoma without obvious post-septal involvement bilaterally. 33. Gait dysfunction. 34. Deconditioning. 35. Osseous demineralization of the hips. 36. Left hand soft tissue swelling and osseous demineralization and degenerative joint disease. 37. Left axis deviation and left anterior hemiblock. 38. Left iliac crest nondisplaced fracture. 39. Facial hematomas and contusion. 40. Right supraorbital hematoma and left zygoma, hematoma. 41. Deconditioning. 42. Mild oral dysphagia. 43. Mild oral dysphagia with low-risk aspiration secondary to missing teeth. 1. Status post mechanical fall. 2. Facial periorbital and supraorbital contusions and hematoma. 3. History of hypertension. 4. History of dementia, history of neuropathy, and history of cerebrovascular accident with left internal carotid artery stents. 5. Normocytic anemia. 6. Granulocytosis. 7. Hypokalemia. 8. Metabolic alkalosis. 9. Acute kidney injury. 10. Microscopic hematuria. 11. Pyuria. 12. Gait dysfunction. 13. Intractable nausea and vomiting secondary to mechanical fall (resolved). 14. Left anterior superior iliac crest oblique minimally displaced comminuted fracture. 15. Osseous demineralization. 16. Degenerative joint disease. 17. History of cataract surgery. 18. History of dementia. 19. Hypertension. 20. Fascial periorbital and supraorbital hematoma and contusion and possible cellulitis. 1. Facial and periorbital and supraorbital contusion and hematoma. 2. Status post mechanical fall. 3. History of hypertension, history of cerebrovascular accident with left internal carotid artery stenting. 4. Facial contusion and hematoma. 5. Mild right-sided spastic weakness. 6. Hypertension. 7. Leukocytosis with granulocytosis. 8. Hypokalemia. 9. Metabolic alkalosis. 10. Hyperglycemia. 11. Left hand extensive degenerative joint disease with involving the carpometacarpal joint space with soft tissue swelling and osseous demineralization. 12. Left hip osseous demineralization. 13. Constipation. 14. Cervical spine degenerative disk disease without any acute fracture. 15. Right upper lobe pleural thickening and left-sided pleural calcification. 16. Multiple calcified pleural plaques bilateral suggestive of asbestos pleural disease. 17. Right upper lobe pleural thickening with suspected left-sided pleural calcification and asbestos-related bilateral pleural disease. 18. Oblique mildly displaced comminuted fracture of the anterior superior left iliac crest. 19. Degenerative joint disease. 20. Sinus bradycardia. 21. Left axis deviation. 22. Hypertensive cardiovascular disease and left ventricular hypertrophy. 23. Gait dysfunction. 24. Deconditioning. 25. History of glaucoma. 26. History of dementia. 27. History of neuropathy. 28. History of hypertension. 29. Hypokalemia. 30. Metabolic alkalosis. 31. Hyperglycemia. 32. Pain syndrome secondary to fall. 33. Facial trauma and contusion, status post mechanical fall. 34. Questionable urinary tract infection. 35. Status post intractable nausea and vomiting secondary to fall. 36. History of herniated disk and back pain problem. 37. History of cataract. 1. Status post mechanical fall. 2. Facial contusion and trauma with bilateral periorbital and supraorbital hematoma and contusion. 3. Questionable urinary tract infection. 4. Intractable nausea and vomiting. 5. Gait dysfunction. 6. History of left carotid stenosis with status post left internal carotid artery stenting. 7. History of cataract. 8. Hypertension. 9. Granulocytosis. 10. Questionable facial cellulitis secondary to fall, contusion. 11. Hypokalemia. 12. Metabolic alkalosis. 13. Hyperglycemia. 14. Slight transaminitis. 15. Microscopic hematuria, pyuria, bacteria, questionable urinary tract infection. 16. Status post fall. 17. 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 18. Degenerative joint disease of the cervical spine without any acute fracture. 19. Right upper lobe pleural thickening and suspected left-sided pleural calcification with numerous calcified pleural plaques bilaterally suggestive of asbestos-related pleural disease. 20. Ectatic aorta. 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 22. Left anterior hemiblock. 23. Hypertensive cardiovascular disease. 24. History of cerebrovascular accident. 25. Questionable mild right upper extremity spastic weakness from prior cerebrovascular accident. 26. Extensive facial soft tissue swelling versus questionable cellulitis. 27. History of dementia, history of hypertension. 28. Oblique mildly displaced comminuted fracture of the left anterior superior iliac crest. 29. Degenerative joint disease. PLAN: At this time, the patient is to be continued in Transitional Care Unit with continuation of Physical Therapy, Occupational Therapy, Ambulation Therapy, and gait training. The patient has been seen by the manager social. The patient's discharge plan is home with home care. The patient has been seen by occupational therapist. The recommendation is to continue Occupational Therapy. The patient has been seen by physical therapist. The last evaluation up to 10/27/2017 is noted to continue PT with home with services. The patient's sister who has been in contact with me, I have advised the patient's sister who is a retired nursing [place]. I have advised the patient's sister, Harsh that because of the patient's decompensated and deconditioned state with multiple comorbidity, the patient will most likely need and will benefit from 24-hour care and supervision. The patient's sister was contacted on the phone number [phone] in [place]. Dictated and electronically signed, not read. Signing off Chance Law MD Chance Law MD MTDD
--- NOTE | 2017-10-28 13:21 | RAD ---
PROCEDURE: Radiographs of the pelvis. HISTORY: Left pelvic fx COMPARISON: CT scan 10/17/2017 FINDINGS: BONES: Pelvic Bones: There is a displaced fracture of the anterior border of the left iliac bone which was demonstrated on recent CT. No other fractures seen Hips: Grossly unremarkable. JOINTS: Sacroiliac Joints: Unremarkable. Pubic Symphysis: Unremarkable. OTHER FINDINGS: None. IMPRESSION: There is a displaced fracture of the anterior border of the left iliac bone which was demonstrated on recent CT. No other fractures seen
[2017-10-28] MEDS: Latanoprost 2.5 ml Opht Soln OU SCH (22:22)
[2017-10-29] MEDS: Levalbuterol 0.63 MG/3 ML Inhal Soln UD IH SCH ×4 (02:32→19:35)
[2017-10-29] MEDS: Pantoprazole 40 mg EC Tab PO SCH (05:13)
[2017-10-29] MEDS: Lidocaine 5% Patch TD SCH (09:45)
--- NOTE | 2017-10-29 11:51 | PN ---
DATE: 10/29/2017 LOCATION: The patient is seen in room 303, bed 1. SUBJECTIVE: The patient's overnight nurse's notes were reviewed. The patient slept well without any signs and symptoms of any adverse events noted. No adverse events were documented. OBJECTIVE: VITAL SIGNS: T-max 98.2, pulse 60-78, blood pressure 117/65, respirations 18, O2 sat 100% on room air. HEENT: Head: Otherwise, normocephalic, atraumatic. HEENT examination shows pinkish pale conjunctivae, slow resolving right supraorbital hematoma and contusion. No periorbital hematoma noted. Decreasing positive discoloration of the infraorbital area with bluish black discoloration. NECK: No neck rigidity. CHEST: Kyphosis. LUNGS: Shows no rales, crackles, or wheezing. CARDIOVASCULAR: S1, S2, regular rhythm. ABDOMEN: Soft. Positive bowel sound. GENITALIA: Female. RECTAL: Deferred. EXTREMITIES: Shows no pitting edema. No calf numbness. No Homans' sign. NEUROLOGIC: The patient is alert, awake, responsive, is able to move upper and lower extremity without assistance. Gait examination not tested. MUSCULOSKELETAL: Shows a body mass index of 16.5. Cranial nerves II through XII are limited. DIAGNOSTICS: None. The patient underwent a pelvic x-ray ordered by Dr. Roper from [facility]. Pelvic x-ray shows displaced fracture of the anterior border of the left iliac bone which was also demonstrated on the previous CAT scan. No other fractures were noted. IMPRESSION AND PLAN: 1. Deconditioning. 2. Gait dysfunction. 3. Displaced fracture of the anterior border of the left iliac bone. 4. History of hypertension. 5. Status post mechanical fall. 6. Multiple facial contusions and hematoma, including right supraorbital, right periorbital hematoma; and left periorbital, infraorbital hematoma and contusion. 7. Normocytic anemia. 8. Granulocytosis. 9. Prerenal kidney injury. 10. Dementia. 11. Hypertension. 12. Neuropathy. 13. Dyslipidemia. 14. History of cerebral infarct. 15. History of internal carotid artery stenting. 16. Glaucoma. 17. History of degenerative joint disease. 18. History of cerebrovascular infarct with left internal carotid artery stent placement. 1. Deconditioning. 2. Gait dysfunction. 3. Status post mechanical fall. 4. Right supraorbital hematoma and contusion. 5. Right periorbital hematoma and contusion (resolving). 6. Left periorbital hematoma and contusion, resolving. 7. Left infraorbital contusion and hematoma (resolving. 8. History of dementia. 9. History of hypertension. 10. Normocytic anemia. 11. Granulocytosis. 12. Prerenal kidney injury. 13. Neuropathy. 14. Dementia. 15. Hyperlipidemia. 16. Hypertension. 17. History of cerebral infarct. 18. History of left internal carotid artery stenting. 19. Glaucoma. 20. Status post intractable nausea and vomiting. 21. Gait dysfunction. 22. Mild dysphagia. 23. Mild oral dysphagia. 24. Gait dysfunction. 1. Deconditioning. 2. Gait dysfunction. 3. Status post mechanical fall. 4. Multiple facial contusions and hematoma. 5. Hypertension. 6. Neuropathy. 7. Dementia. 8. Dyslipidemia. 9. Chronic pain syndrome. 10. Mild oral dysphagia (resolved). 1. Deconditioning. 2. Gait dysfunction. 3. Status post mechanical fall. 4. Right supraorbital, right periorbital, right infraorbital, left infraorbital, left periorbital hematoma and contusion (resolving). 5. Hypertension. 6. Anemia. 7. Leukocytosis and granulocytosis. 8. Chronic pain disorder. 9. Dementia. 10. Dyslipidemia. 11. Glaucoma. 12. History of cerebral aneurysm. 13. Status post aneurysm surgery. 14 History of gait dysfunction. 1. Gait dysfunction. 2. Deconditioning. 3. Acute pain syndrome secondary to mechanical fall. 4. History of narcotic abuse and dependence, status post drug rehabilitation and detoxification. 5. Left elbow area bruising, contusion, and questionable small hematoma versus cellulitis. 6. Status post mechanical fall. 7. Multiple facial contusions. 8. Hematoma. 9. Right supraorbital, right periorbital hematoma. 10. Left infraorbital and supraorbital hematoma. 11. Right frontal hematoma and contusion and scalp swelling. 12. Hypertension. 13. Dyslipidemia. 14. Neuropathic pain syndrome. 15. Intractable nausea and vomiting (resolved). 16. Dementia. 17. Glaucoma. 1. Status post mechanical fall. 2. Left pelvic, left iliac crest fracture. 3. Intractable vomiting (resolved). 4. Left hip pain. 5. Facial supraorbital, periorbital and infraorbital contusion, hematoma, and cellulitis (resolving). 6. Left iliac crest fracture with minimal displacement. 7. Gait dysfunction. 8. Hypertension. 9. History of cerebral aneurysm, status post left internal carotid artery stenting. 10. Deconditioning. 11. . 12. Mild oral dysphagia. 13. Leukocytosis with granulocytosis. 14. Mild normocytic anemia. 15. Ketonuria, microscopic hematuria, pyuria, bacteriuria. 16. O positive blood type. 17. Left iliac crest oblique minimally displaced comminuted fracture of the anterior superior left iliac crest. 18. Osseous demineralization. 19. Degenerative joint disease. 20. Ketonuria. 21. Status post fall. 22. Patent stent of the cavernous segment of the left internal carotid artery with mild diffuse narrowing in the region of the stent. 23. 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 24. Chronic microvascular ischemic disease of the brain with bilateral frontoparietal and periatrial white matter chronic ischemia. 25. Bilateral basal ganglia, chronic ischemic changes versus lacunar infarction. 26. Cerebral cortical atrophy of the brain. 27. Pontine chronic ischemic changes. 28. Ventriculomegaly. 29. Right frontal scalp extensive scalp hematoma. 30. Supraclinoid left internal carotid artery 8 mm rounded thrombosed aneurysm with peripheral calcification. 31. Diffuse age-related cerebral cortical atrophy of the brain. 32. Right upper lobe pleural thickening and suspected left-sided pleural calcification with numerous calcified pleural plaques bilaterally. 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 34. Degenerative joint disease of the cervical spine with osteophyte formation, disc space narrowing, endplate changes, and facet arthropathy with thickening of the transverse ligament with synovial hypertrophy. 35. Large right frontal scalp hematoma with edema with moderate bilateral preseptal periorbital soft tissue hematoma without post-septal involvement of the orbits bilaterally. 36. Osseous demineralization of the left hip. 37. Osseous demineralization of the left hand with degenerative joint disease of the left hand and joint space narrowing, especially in the carpometacarpal joint space. 38. Left hand soft tissue swelling. 39. 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 1. Status post mechanical fall. 2. Multiple facial supraorbital, periorbital, infraorbital contusion, hematoma and cellulitis secondary to fall. 3. Hypertension. 4. Normocytic anemia. 5. Granulocytosis. 6. Mild metabolic alkalosis. 7. Hypokalemia. 8. Deconditioning. 9. Gait dysfunction. 10. History of cerebrovascular accident. 11. Glaucoma and cataract. 12. Neuropathy. 13. Questionable dementia. 14. History of cerebral infarct. 15. Facial cellulitis and contusion. 16. Status post intractable nausea resolved. 17. Ketonuria, microscopic hematuria, pyuria, and bacteriuria with negative urine culture. 18. O positive blood type. 19. Mild oral dysphagia with low risk for aspiration secondary to missing teeth, minimal fatigue and slow oral transit and oral residue. 20. Questionable feeding dysfunction. 1. Status post mechanical fall. 2. Multiple facial, supraorbital, periorbital, infraorbital contusions and hematoma and cellulitis secondary to fall. 3. History of cerebrovascular accident status post left internal carotid artery stenting. 4. Mild spastic right upper extremity weakness. 5. Hypertension. 6. Leukocytosis with granulocytosis. 7. Normocytic anemia. 8. Mild transaminitis. 9. Hypokalemia. 10. Ketonuria, hematuria, pyuria, bacteriuria. 11. O+ blood type. 12. Oblique, mildly displaced comminuted fracture of the anterior superior left iliac crest. 13. Degenerative joint disease. 14. Patent stent in the cavernous segment of the left internal carotid artery. 15. Diffuse narrowing in the region of the stent. 16. 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 17. Left internal carotid artery cavernous segment patent stent. 18. Mild diffuse narrowing within the region of the left internal carotid artery cavernous segment stent. 19. Stable 8-mm thrombosed aneurysm arising from supraclinoid left internal carotid artery and projecting anteriorly, superiorly with no flow in the aneurysm. 20. Chronic microvascular ischemic disease of the brain. 21. Multiple chronic ischemic disease of the brain of bilateral frontoparietal and periatrial white matter chronic ischemic disease and lacunar infarcts of the bilateral basal ganglia. 22. Diffuse cerebral cortical atrophy. 23. Chronic pontine ischemic changes. 24. Ventriculomegaly. 25. Right frontal hematoma. 26. Stable 8-mm thrombosed aneurysm with peripheral calcification arousing from the supraclinoid left internal carotid artery. 27. Right upper lobe pleural thickening and suspected left-sided pleural calcification. 28. 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 29. Ectatic aortic . 30. Degenerative joint disease with osteophyte formation and disc space narrowing and facet arthropathy of the cervical spine and thickening of the transverse ligament and synovial hypertrophy of the cervical spine. 31. Large right frontal scalp hematoma with edema and hematoma with [id number] severity of the bilateral preseptal periorbital soft tissue without post-septal involvement. 32. Posttraumatic hematoma and soft tissue edema of the bilateral periorbital and right frontal soft tissue region without underlying fracture and preseptal periorbital edema and hematoma without obvious post-septal involvement bilaterally. 33. Gait dysfunction. 34. Deconditioning. 35. Osseous demineralization of the hips. 36. Left hand soft tissue swelling and osseous demineralization and degenerative joint disease. 37. Left axis deviation and left anterior hemiblock. 38. Left iliac crest nondisplaced fracture. 39. Facial hematomas and contusion. 40. Right supraorbital hematoma and left zygoma, hematoma. 41. Deconditioning. 42. Mild oral dysphagia. 43. Mild oral dysphagia with low-risk aspiration secondary to missing teeth. 1. Status post mechanical fall. 2. Facial periorbital and supraorbital contusions and hematoma. 3. History of hypertension. 4. History of dementia, history of neuropathy, and history of cerebrovascular accident with left internal carotid artery stents. 5. Normocytic anemia. 6. Granulocytosis. 7. Hypokalemia. 8. Metabolic alkalosis. 9. Acute kidney injury. 10. Microscopic hematuria. 11. Pyuria. 12. Gait dysfunction. 13. Intractable nausea and vomiting secondary to mechanical fall (resolved). 14. Left anterior superior iliac crest oblique minimally displaced comminuted fracture. 15. Osseous demineralization. 16. Degenerative joint disease. 17. History of cataract surgery. 18. History of dementia. 19. Hypertension. 20. Fascial periorbital and supraorbital hematoma and contusion and possible cellulitis. 1. Facial and periorbital and supraorbital contusion and hematoma. 2. Status post mechanical fall. 3. History of hypertension, history of cerebrovascular accident with left internal carotid artery stenting. 4. Facial contusion and hematoma. 5. Mild right-sided spastic weakness. 6. Hypertension. 7. Leukocytosis with granulocytosis. 8. Hypokalemia. 9. Metabolic alkalosis. 10. Hyperglycemia. 11. Left hand extensive degenerative joint disease with involving the carpometacarpal joint space with soft tissue swelling and osseous demineralization. 12. Left hip osseous demineralization. 13. Constipation. 14. Cervical spine degenerative disk disease without any acute fracture. 15. Right upper lobe pleural thickening and left-sided pleural calcification. 16. Multiple calcified pleural plaques bilateral suggestive of asbestos pleural disease. 17. Right upper lobe pleural thickening with suspected left-sided pleural calcification and asbestos-related bilateral pleural disease. 18. Oblique mildly displaced comminuted fracture of the anterior superior left iliac crest. 19. Degenerative joint disease. 20. Sinus bradycardia. 21. Left axis deviation. 22. Hypertensive cardiovascular disease and left ventricular hypertrophy. 23. Gait dysfunction. 24. Deconditioning. 25. History of glaucoma. 26. History of dementia. 27. History of neuropathy. 28. History of hypertension. 29. Hypokalemia. 30. Metabolic alkalosis. 31. Hyperglycemia. 32. Pain syndrome secondary to fall. 33. Facial trauma and contusion, status post mechanical fall. 34. Questionable urinary tract infection. 35. Status post intractable nausea and vomiting secondary to fall. 36. History of herniated disk and back pain problem. 37. History of cataract. 1. Status post mechanical fall. 2. Facial contusion and trauma with bilateral periorbital and supraorbital hematoma and contusion. 3. Questionable urinary tract infection. 4. Intractable nausea and vomiting. 5. Gait dysfunction. 6. History of left carotid stenosis with status post left internal carotid artery stenting. 7. History of cataract. 8. Hypertension. 9. Granulocytosis. 10. Questionable facial cellulitis secondary to fall, contusion. 11. Hypokalemia. 12. Metabolic alkalosis. 13. Hyperglycemia. 14. Slight transaminitis. 15. Microscopic hematuria, pyuria, bacteria, questionable urinary tract infection. 16. Status post fall. 17. 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 18. Degenerative joint disease of the cervical spine without any acute fracture. 19. Right upper lobe pleural thickening and suspected left-sided pleural calcification with numerous calcified pleural plaques bilaterally suggestive of asbestos-related pleural disease. 20. Ectatic aorta. 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 22. Left anterior hemiblock. 23. Hypertensive cardiovascular disease. 24. History of cerebrovascular accident. 25. Questionable mild right upper extremity spastic weakness from prior cerebrovascular accident. 26. Extensive facial soft tissue swelling versus questionable cellulitis. 27. History of dementia, history of hypertension. 28. Oblique mildly displaced comminuted fracture of the left anterior superior iliac crest. 29. Degenerative joint disease. PLAN: At this time, the patient was seen by the social work faculty member yesterday. The patient plans to return home with the nephew. The patient's sister, who is in [place], was informed about the patient's decision to go home with the nephew. The patient will be discharged upon completion of the TCU stay. The patient will be continued on the present medications, including aspirin 81 mg daily, Bactroban cream to the affected area, clonidine 0.1 mg twice a day, Cymbalta 30 mg at bedtime, Exelon patch 4.6 mg daily, Lidoderm 5% patch to the affected area, Lipitor 10 mg daily, Lopressor 25 mg twice a day, Norvasc 10 mg daily, Plavix 75 mg daily, Protonix 40 mg daily, Toradol 15 mg q.8 hours p.r.n., Ultram 100 mg three times a day, Xalatan eye drops, Xopenex 0.63 mg nebulizer q.6 hours, Zofran 4 mg IV q.4 p.r.n. The patient is to be continued on ANNA stockings, SCDs, occupational therapy, physical therapy, gait training, and ambulation training. Dictated and electronically signed, not read. Chance Law MD MTDD
[2017-10-29] MEDS: Latanoprost 2.5 ml Opht Soln OU SCH (21:31)
[2017-10-30] MEDS: Levalbuterol 0.63 MG/3 ML Inhal Soln UD IH SCH ×3 (02:24→13:02)
[2017-10-30] MEDS: Pantoprazole 40 mg EC Tab PO SCH (06:03)
[2017-10-30 06:17] VITALS: O2SAT 98
--- NOTE | 2017-10-30 08:19 | CP.PCM.PN ---
Subjective - Date & Time of Evaluation Date of Evaluation: 10/30/17 Time of Evaluation: 07:30 - Subjective Subjective: (covering for Dr. Law) Patient is seen this morning. She is able to walk with walker. She has no new complaints. Objective - Vital Signs/Intake and Output Vital Signs (last 24 hours): Temp Pulse Resp BP Pulse Ox 98.3 F 65 16 111/74 98 10/30/17 06:00 10/30/17 06:00 10/30/17 06:00 10/30/17 06:00 10/30/17 06:00 - Medications Medications: Current Medications Amlodipine Besylate (Norvasc) 10 mg PO DAILY ERNIE PRN Reason: Protocol Last Admin: 10/29/17 09:46 Dose: 10 mg Aspirin (Aspirin Chewable) 81 mg PO 0800 ERNIE PRN Reason: Protocol Last Admin: 10/29/17 09:43 Dose: 81 mg Atorvastatin Calcium (Lipitor) 10 mg PO DIN ERNIE PRN Reason: Protocol Last Admin: 10/29/17 19:00 Dose: 10 mg Clonidine HCl (Catapres) 0.1 mg PO BID ERNIE PRN Reason: Protocol Last Admin: 10/29/17 18:59 Dose: Not Given Clopidogrel Bisulfate (Plavix) 75 mg PO 0800 ERNIE PRN Reason: Protocol Last Admin: 10/29/17 09:46 Dose: 75 mg Duloxetine HCl (Cymbalta) 30 mg PO HS ERNIE PRN Reason: Protocol Last Admin: 10/29/17 21:30 Dose: 30 mg Heparin Sodium (Porcine) (Heparin) 5,000 units SC Q12 ERNIE PRN Reason: Protocol Last Admin: 10/29/17 21:31 Dose: 5,000 units Ketorolac Tromethamine (Toradol) 15 mg IVP Q8H PRN PRN Reason: Pain, severe (8-10) Last Admin: 10/30/17 04:19 Dose: 15 mg Latanoprost (Xalatan Opht) 0 ml OU HS ERNIE PRN Reason: Protocol Last Admin: 10/29/17 21:31 Dose: 2.5 ml Levalbuterol HCl (Xopenex) 0.63 mg IH [id number] ERNIE Last Admin: 10/30/17 07:17 Dose: 0.63 mg Lidocaine (Lidoderm) 1 ea TD DAILY ERNIE PRN Reason: Protocol Last Admin: 10/29/17 09:45 Dose: 1 ea Metoprolol Tartrate (Lopressor) 25 mg PO 0800,1800 ERNIE PRN Reason: Protocol Last Admin: 10/29/17 19:00 Dose: Not Given Mupirocin (Bactroban Ointment) 0 gm TOP TID ERNIE Last Admin: 10/29/17 18:59 Dose: 1 appl Ondansetron HCl (Zofran Inj) 4 mg IVP Q4H PRN; Protocol PRN Reason: Nausea/Vomiting Pantoprazole Sodium (Protonix Ec Tab) 40 mg PO 0600 ERNIE PRN Reason: Protocol Last Admin: 10/30/17 06:03 Dose: 40 mg Rivastigmine (Exelon 4.6 Mg/24 Hr Patch) 1 patch TD DAILY ERNIE PRN Reason: Protocol Last Admin: 10/29/17 09:45 Dose: 1 patch Tramadol HCl (Ultram) 100 mg PO TID ERNIE PRN Reason: Protocol Last Admin: 10/29/17 21:30 Dose: 100 mg - Labs Labs: 10/26/17 09:30 10/26/17 09:30 - Constitutional Appears: No Acute Distress - Head Exam Head Exam: ATRAUMATIC, NORMOCEPHALIC - Respiratory Exam Respiratory Exam: Clear to Ausculation Bilateral, NORMAL BREATHING PATTERN - Cardiovascular Exam Cardiovascular Exam: +S1, +S2 - GI/Abdominal Exam GI & Abdominal Exam: Soft, Normal Bowel Sounds. absent: Tenderness - Extremities Exam Extremities Exam: Normal Inspection - Neurological Exam Neurological Exam: Alert, Awake, Oriented x3 Assessment and Plan - Assessment and Plan (Free Text) Assessment: deconditioning chronic pain syndrome hypertension multiple facial contusions Plan: Patient is able to walk with walker. She is to finish her time in the transitional care unit. continue current medications and management
[2017-10-30 10:19] VITALS: RESP 18; TEMP 98
[2017-10-30] MEDS: Lidocaine 5% Patch TD SCH (10:22)
[2017-10-30 10:23] VITALS: BP 111/74; PULSE 78
--- NOTE | 2017-11-01 02:42 | DS ---
The patient was discharged after completion of TCU stay on 10/30/2017. The patient was seen on coverage by Dr. Fontaine on 10/30/2017. FINAL IMPRESSION, PLAN, AND DISCHARGE DIAGNOSES: 1. Deconditioning. 2. Gait dysfunction. 3. Displaced fracture of the anterior border of the left iliac crest. 4. Multiple facial contusions, hematoma including right supraorbital, right periorbital hematoma, and contusion and left periorbital and left infraorbital hematoma and contusion. 5. History of hypertension. 6. Normocytic anemia with granulocytosis. 7. Prerenal kidney injury. 8. Deconditioning. 9. Gait dysfunction. The patient is to be discharged home. The patient and the patient's family have declined subacute rehab, long-term placement. The patient wishes to continue to stay with the family including the nephew. At patient's discharge, the patient's case was referred to social services analyst, case management, and discharge planning. The patient's family including the patient's sister was explained about the patient's condition on multiple occasions during the hospitalization on TCU and in acute care side. The patient including the patient and the patient's family understood the patient's declining overall medical condition and decompensated medical state and possible need for 24-hour care and supervision. DISCHARGE MEDICATIONS: Norvasc 5 mg daily, aspirin 81 mg daily, Lipitor 10 mg daily, Lumigan eyedrops one drop, both eyes at bedtime, clonidine 0.1 mg twice a day, Plavix 75 mg daily, Cymbalta 30 mg at bedtime, Xalatan eyedrops, 0.005% both eyes at bedtime, Lidoderm 5% patch to the affected area, Bystolic 10 mg daily, Protonix 40 mg daily, Exelon patch 4.6 mg daily, Ultram 100 mg three times a day. The patient was ordered to be discharged to subacute rehab or long-term care if the patient accepted, and if the patient not accepted to subacute rehab or long-term, then discharge the patient home with family upon completion of approved TCU stay. The patient's case was referred to [facility] home PT upon discharge. The patient was advised to follow up with Dr. Law within 1 week. Dictated and electronically signed, not read. Chance Law MD [facility] # [id number]
== END 2017-10-30 13:02 | disposition home health service (06) | DRG 561 ==
LOC: TRCU 14:02 → MERGE 14:02
PROVIDERS: ADMIT Internal Medicine; ATTEND Internal Medicine
PROC: F07Z9FZ Gait Training/Functional Ambulation Treatment using Assistive, Adaptive, Supportive or Protective Equipment (ICD-10-PCS; principal; 2017-10-24)
PROC: F07Z8ZZ Transfer Training Treatment (ICD-10-PCS; 2017-10-24)
PROC: F08Z2FZ Grooming/Personal Hygiene Treatment using Assistive, Adaptive, Supportive or Protective Equipment (ICD-10-PCS; 2017-10-24)
DX: S32.302D Unspecified fracture of left ilium, subsequent encounter for fracture with routine healing (principal); S00.11XD Contusion of right eyelid and periocular area, subsequent encounter; S00.03XD Contusion of scalp, subsequent encounter; R26.2 Difficulty in walking, not elsewhere classified; G62.9 Polyneuropathy, unspecified; D64.9 Anemia, unspecified; F03.90 Unspecified dementia, unspecified severity, without behavioral disturbance, psychotic disturbance, mood disturbance, and anxiety; I65.22 Occlusion and stenosis of left carotid artery; I11.9 Hypertensive heart disease without heart failure; H40.9 Unspecified glaucoma; H26.9 Unspecified cataract; M19.042 Primary osteoarthritis, left hand; M47.812 Spondylosis without myelopathy or radiculopathy, cervical region; E78.5 Hyperlipidemia, unspecified; R13.11 Dysphagia, oral phase; I25.10 Atherosclerotic heart disease of native coronary artery without angina pectoris; G89.4 Chronic pain syndrome; W19.XXXD Unspecified fall, subsequent encounter; Z86.73 Personal history of transient ischemic attack (TIA), and cerebral infarction without residual deficits; Z87.891 Personal history of nicotine dependence